=== PATIENT | male | born 1935 | race Caucasian/White ===

== ENCOUNTER 2017-04-03 13:45 | Inpatient (IN) ==
[2017-04-03] MEDS ORDERED: FUROSEMIDE 100 MG/10 ML VIAL IV STA (14:12)
[2017-04-03] MEDS ORDERED: ONDANSETRON 4 MG/2 ML VIAL IV STA (14:12)
[2017-04-03] MEDS ORDERED: MEROPENEM 1,000 MG in SODIUM CHLORIDE 0.9% 100 ML IV STA (14:12)
[2017-04-03] MEDS ORDERED: ALBUTEROL/IPRATROPIUM 3 ML NEB RESP TX STA (14:12)
--- NOTE | 2017-04-03 14:23 | Emergency Department Note ---
Arrival - Arrival Chief Complaint: Shortness of Breath Stated Complaint: shortness of breath ED Nursing Triage Note: Transfer from [facility] ER for further evaluation of shortness of breath onset approx one week ago. BNP 11,000. WBC 36,000.+non- productive cough. +generalized aching. Denies fever. Mode of Arrival: Stretcher Limitations: No Limitations Source: Patient, Family Time Seen by Provider: 04/03/17 14:12 - History of Present Illness HPI Narrative: This 81-year-old white male presents on transfer from [facility] for further evaluation of leukocytosis and shortness of breath. The patient has had an insidious onset of shortness of breath and cough over the last week and per the family has had no chills or fever just a general decline. 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 Murry last month for determination of when to treat. Per the family, at that time it was felt treatment was not necessary. As stated initially, however, today he revealed a very elevated white blood cell count. 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 At [place] it was noted in addition to the elevated white blood cell count he had a greatly elevated BNP as well as a borderline positive troponin in association with the symptoms. At no time did he have complaints of chest pain, nausea, or vomiting. He did demonstrate massive scrotal edema which is been there for years. 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 Onset (ago): week(s) Allergies/Adverse Reactions: Allergies Allergy/AdvReac Type Severity Reaction Status Date / Time No Known Allergies Allergy Verified 04/03/17 14:01 Home Medications: Home Medications Medication Instructions Recorded Confirmed Type Aspirin/Caffeine [Bc Powder Packet] 1 each PO BID 04/03/17 04/03/17 History Multivit-Min36/Iron/Folic Acid 1 each PO QAM 04/03/17 04/03/17 History [Geritol Complete Tablet] Review of System - Review of System 12 point system: reviewed and no additional remarkable complaints except as stated - Review of System Constitutional: Present: as per HPI Head/Ears/Nose/Throat: Present: see HPI Respiratory: Present: as per HPI Cardiovascular: Present: as per HPI Skin: Present: as per HPI Medical,Surgical,& Family Hx - Medical History Other: History of: Miscellaneous Medical Problems (leukemia) - Social History Smoking Status: Never smoker Frequency of Alcohol Use: Rarely Type of Drug Use: None Exam Physical Examination: GENERAL: Chronically ill-appearing white male in no acute distress. HEENT: Normocephalic. No trauma. Moist mucous membranes. EOMI. PERRLA. ENT ears clear, nose clear, throat reveals mild injection NECK: Supple. No adenopathy. CARDIAC: Regular. No murmurs. Heart rate 90 CHEST: Clear to auscultation. No respiratory distress. O2 sat 97% ABDOMEN: Soft. Nontender. Active bowel sounds.: Massive scrotal edema EXTREMITIES: No trauma. Normal ROM. No pedal edema. SKIN: No diaphoresis. No rash. Dry ulcer lateral aspect of the right ankle NEURO: Alert. Hearing deficit. Oriented 3. Motor, sensory, vibratory intact. No focal deficits. Vital Signs: Vital Signs Temperature 99.8 F H 04/03/17 13:45 Pulse Rate 73 04/03/17 14:30 Respiratory Rate 29 H 04/03/17 14:30 Blood Pressure 139/68 04/03/17 13:45 O2 Sat by Pulse Oximetry 100 04/03/17 14:30 Course - Reevaluation(s) Reevaluation #1: Advised patient and family that he would need hospitalization for pneumonia and failure. - Consultations Consultation #1: Discussed with Dr. Murry who deferred to hospitalist as the patient's current CLL state does not require any treatment and probably will never. Consultation #2: Discussed with hospitalist service who will admit for further evaluation treatment. Results - Labs CBC & BMP: 04/03/17 14:21 Labs: Per Kelly proBNP 11,000, troponin 0.38, PT PTT normal, sodium 140, potassium 4.0, creatinine 1.9, BUN 51, white count 38,000, hematocrit 27, platelets 210, 000 Bump in troponin here 2.41 with a BnP of 433 - Impressions EKG per Kelly normal sinus rhythm at 86 normal MI interval and QRS duration. Nonspecific ST changes with no acute injury pattern noted evidence of LVH. EKG: Sinus rhythm at 82 with normal MI interval and incomplete right bundle branch block with left axis deviation. Nonspecific ST changes with evidence of LVH. No acute injury pattern noted. - Diagnostic Findings Procedure: Chest x-ray: image reviewed by me, report reviewed by me (Right lower lobe infiltrate with bilateral pleural effusions) Disposition Clinical Impression: Right lower lobe pneumonia, Congestive heart failure, Stable CLL Case discussed with: patient, patient's family Disposition: Still a Patient Condition: Guarded Time of Disposition: 16:16
[2017-04-03 14:32] LABS: Basophils % 0.1 % (0.0-0.8); Hematocrit 24.3 VOL% (42.0-52.0); Hemoglobin 7.9 GM/DL (14.0-18.0); Immature Granulocytes % 0.8 %; Immature Granulocytes Absolute 0.28 #; Lymphocytes % 63.1 % (21.2-54.2); Mean Corpuscular HGB Conc 32.5 GM/DL (32-36); Mean Corpuscular Hemoglobin 28 PG (27-34); Mean Corpuscular Volume 87.1 FL (87-102); Mean Platelet Volume 9.6 FL (9.6-12.0); Monocytes # 4.1 10*3/uL (0.11-0.8); Monocytes % 12.3 % (1.7-12.7); Neutrophils # 7.8 10*3/uL (1.4-7.4); Neutrophils % 23.7 % (38.7-73.9); Platelet Count 195 T/CUMM (130-400); Red Blood Count 2.79 MC/CUMM (3.8-5.5); Red Cell Distribution Width 17.9 % (9.3-17.3); White Blood Count 33.2 T/CUMM (4-12)
--- NOTE | 2017-04-03 14:39 | EKG Report ---
Stationary ECG Study [facility] ER Test Date: 04/03/2017 2:39:20 PM Pat Name: NALINI CONTRERAS Department: Room: Gender: M [employer] Operator: : 1935 Requested by: Fuad Angel Order Number: [id number] Reading MD: ROHINI DENNEY Intervals [place] Rate: 82 P: 44 TN: 128 QRS: -21 QRSD: 98 T: 85 QT: 329 QTc: 368 Interpretive Statements SINUS RHYTHM BORDERLINE LEFT AXIS DEVIATION INCOMPLETE RIGHT BUNDLE BRANCH BLOCK LEFT VENTRICULAR HYPERTROPHY AND ST-T CHANGE Electronically Signed On 04-03-17 16:11:39 CDT by ROHINI DENNEY [email or web address]
[2017-04-03] MEDS ORDERED: FUROSEMIDE 40 MG/4 ML VIAL ONE (14:53)
[2017-04-03] MEDS ORDERED: ONDANSETRON 4 MG/2 ML VIAL ONE (14:53)
[2017-04-03] MEDS ORDERED: FUROSEMIDE 20 MG/2 ML VIAL ONE (14:53)
[2017-04-03] MEDS ORDERED: MEROPENEM 1,000 MG VIAL IV ONE (14:53)
[2017-04-03 15:04] LABS: Atypical Lymphocytes Few; Band Neutrophils 8 % (0-10); Lymphocytes 74 % (20-55); Segmented Neutrophils 16 % (50-85); Smudge Cells Moderate; Total Cells Counted 100
[2017-04-03 15:05] LABS: Hypochromasia Slight; Platelet Estimate Normal
[2017-04-03 15:06] LABS: Burr Cells Few; Poikilocytosis Slight; Tear Drop Cells Few
[2017-04-03 15:07] LABS: Troponin I Only 0.415 NG/ML (0.00-0.045)
--- NOTE | 2017-04-03 15:13 | XRay Report ---
Portable chest. Indication: Shortness of breath. Comparison: Outside study. The heart is normal in size. The pulmonary vasculature is normal. There is atelectasis and pleural effusion at the left lung base. There is worsening infiltrate and pleural effusion at the right lung base. Degenerative changes are present within the spinal column and shoulders. Impression: Small bilateral pleural effusions. Right basilar pneumonia with interval worsening. Left basilar atelectasis. PROCEDURE INTERPRETED AT [facility] DEPARTMENT OF RADIOLOGY Final Report Signed by: Dr. Pam Trivedi
[2017-04-03] MEDS ORDERED: NITROGLYCERIN 2% OINT 1 INCH/GM PACK TOP STA (15:50)
[2017-04-03] MEDS ORDERED: ASPIRIN 325 MG TABLET PO STA (15:50)
[2017-04-03] MEDS ORDERED: METOPROLOL TARTRATE 25 MG TABLET PO STA (15:51)
[2017-04-03] MEDS ORDERED: NITROGLYCERIN 2% OINT 1 INCH/GM PACK TOP ONE (16:07)
[2017-04-03] MEDS ORDERED: METOPROLOL TARTRATE 25 MG TABLET ONE (16:08)
[2017-04-03] MEDS ORDERED: ASPIRIN 325 MG TABLET ONE (16:08)
--- NOTE | 2017-04-03 17:09 | Hospitalist History & Physical ---
Assessment and Plan (1) Pneumonia Status: Acute Assessment and plan: Admit to med surg. Start on IV antibiotics. Monitor O2 sats. Breathing treatments as needed. Current Visit: Yes (2) Anemia Status: Acute Assessment and plan: H&H 7.9/24.3. Monitor serial h&h. Order PPI. Pt. denies jayson bleeding. Anemia panel. Transfuse 2 units of blood. Pt. has no other records on file unable to assess whether this is chronic. Pt. is unsure. Current Visit: Yes (3) CLL (chronic lymphocytic leukemia) Status: Acute Assessment and plan: Diagnosed in 2015. Followed by Dr[address] Murry. No treatments given at this time. Will consult oncology to see. Current Visit: Yes (4) Congestive heart failure Status: Acute Current Visit: Yes (5) Renal failure Status: Acute Assessment and plan: Labs reviewed from outside facility suggest renal failure. Will repeat stat BMP here. Monitor patient. Avoid nephrotoxic agents. Renally dose medications. Current Visit: Yes (6) Elevated troponin Status: Acute Assessment and plan: Serial troponins. Serial EKGs ordered. Consult cardiology for evaluation. Current Visit: Yes (7) Leukocytosis Status: Acute Assessment and plan: Pt. WBC 33. Pt. has history of CLL. CXR revealed pneumonia. Blood cultures pending. Will treat pneumonia and underlying issues. Recheck CBC in am. Continue to monitor patient Current Visit: Yes History of Present Illness Chief complaint: shortness of breath History of present illness: Mr. Paco Shaw is a 81 year old chronically ill-appearing white male patient presents to the ED via EMS as a transfer from [facility] for further evaluation of leukocytosis and shortness of breath. The patient's daughter-in- law is present at bedside and provides some of the patient's history. Patient states that he abruptly became short of breath and began to cough about a week ago. He states that the cough is productive and it is white. Patient also reports that since the onset of symptoms his condition has progressively declined. He states that he is weak but denies fever, chills, chest pain, vomiting, or diarrhea. Patient normally ambulates independently but has been requiring assistance. Patient also reports that he was diagnosed in August [address] Mrury. Patient states that he followed up with Dr. Murry last month and that no treatment was specified at that time. When patient presented to [facility] ER for evaluation he was noted to have a BNP of 11,000, and WBC 36,000 with an elevated troponin. He was transferred to our facility and labs were repeated. BNP at our facility was 433 and WBC was 33. Chest x-ray revealed right basilar pneumonia with interval worsening. On examination in the ED, patient was found to have a ulcer on the lateral right ankle as well last edema to bilateral lower extremities. Patient also had rather impressive scrotal edema which he stated has been there for 30 years. There were no other complaints noted in the ED. the patient is stable at this time. Patient's case has been discussed with Dr. Do and Dr. Lockwood. The patient will be admitted to the hospitalist service for further evaluation and treatment. Home Medications Medication Instructions Recorded Confirmed Type Aspirin/Caffeine [Bc Powder Packet] 1 each PO BID 04/03/17 04/03/17 History Multivit-Min36/Iron/Folic Acid 1 each PO QAM 04/03/17 04/03/17 History [Geritol Complete Tablet] Allergies Allergy/AdvReac Type Severity Reaction Status Date / Time No Known Allergies Allergy Verified 04/03/17 14:01 Medical,Surgical,& Family Hx - Medical History Other: History of: Miscellaneous Medical Problems (leukemia) - Social History Smoking Status: Never smoker Frequency of Alcohol Use: Rarely Type of Drug Use: None - Constitutional Constitutional: Present: fatigue, weakness. Absent: chills, fever(s) - EENT Eyes: Present: loss of vision Ears: Present: decreased hearing Nose, mouth and throat: Absent: epistaxis, headache(s) - Cardiovascular Cardiovascular: Present: edema. Absent: chest pain at rest - Respiratory Respiratory: Present: cough (productive (white sputum)) - Gastrointestinal Gastrointestinal: Present: nausea. Absent: abdominal pain, vomiting - Genitourinary Genitourinary: Present: scrotal swelling. Absent: difficulty urinating - Hematologic/Lymphatic Hematologic/Lymphatic: Present: easy bruising Exam - Constitutional Vitals: Period Temp Pulse Resp BP Sys/[place] Pulse Ox Last 24 Hr 99.8 F-99.8 F 72-90 16-29 126-143/59-98 93-100 General appearance: normal weight, no acute distress - Head Head exam: Present: normal inspection, normocephalic - Eye Eye exam: Present: EOMI. Absent: scleral icterus Pupils: Present: JOSETTE. Absent: fixed - Respiratory Respiratory exam: Present: other (coarse. decreased breath sides on right side) - Cardiovascular Cardiovascular exam: Present: regular rate and rhythm - GI/Abdominal GI/Abdominal exam: Present: normal bowel sounds, soft. Absent: tenderness - Extremities Exam Extremities exam: Present: normal capillary refill, edema - Neurological Exam Neurological exam: Present: alert, oriented X3 - Psychiatric Psychiatric exam: Present: normal affect, normal mood - Skin Skin exam: Present: normal color, warm, dry Results - Labs CBC & BMP: 04/03/17 14:21 Lab Results: I have reviewed the past 24 hour labs Labs: Labs from outside facility were reviewed.
[2017-04-03] MEDS ORDERED: ACETAMINOPHEN 325 MG TABLET PO PRN (18:20)
[2017-04-03] MEDS ORDERED: SODIUM CHLORIDE 0.9% 250 ML IV PRN (18:20)
[2017-04-03 18:52] LABS: Hematocrit 24.1 VOL% (42.0-52.0); Hemoglobin 7.8 GM/DL (14.0-18.0)
[2017-04-03] MEDS: ALBUTEROL/IPRATROPIUM 3 ML NEB RESP TX SCH ×2 (18:53→23:05)
[2017-04-03] MEDS ORDERED: ALBUTEROL/IPRATROPIUM 3 ML NEB RESP TX SCH (19:00)
[2017-04-03 19:20] LABS: % Iron Saturation 12.1 % (18-50); Calcium 7.7 MG/DL (8.5-10.1); Ferritin 229.8 ng/ml (26-388); Magnesium 2.3 MG/DL (1.8-2.4); Osmolality,Calculated 287.8 MOS/KG (273-304); Potassium 2.8 MMOL/L (3.5-5.1)
[2017-04-03 19:43] LABS: Folate 5.8 NG/ML (5.4-24.0)
[2017-04-03] MEDS ORDERED: LEVOFLOXACIN INJ 750 MG in PREMIX 1 EACH IV SCH (20:00)
[2017-04-03] MEDS ORDERED: POTASSIUM CHLORIDE 20 MEQ TABLET PO PRN (20:07)
[2017-04-04 00:30] LABS: Hematocrit 25.8 VOL% (42.0-52.0); Hemoglobin 8.2 GM/DL (14.0-18.0)
[2017-04-04 01:11] LABS: Troponin I Only 0.271 NG/ML (0.00-0.045)
[2017-04-04] MEDS: ALBUTEROL/IPRATROPIUM 3 ML NEB RESP TX SCH ×5 (03:11→20:34)
[2017-04-04 06:19] LABS: Basophils # 0.1 10*3/uL (0.0-0.2); Basophils % 0.1 % (0.0-0.8); Hematocrit 26.2 VOL% (42.0-52.0); Hemoglobin 8.6 GM/DL (14.0-18.0); Immature Granulocytes % 0.8 %; Lymphocytes # 17.9 10*3/uL (1.4-4.0); Lymphocytes % 50.3 % (21.2-54.2); Mean Corpuscular HGB Conc 32.8 GM/DL (32-36); Mean Corpuscular Hemoglobin 28 PG (27-34); Mean Corpuscular Volume 85.6 FL (87-102); Mean Platelet Volume 9.8 FL (9.6-12.0); Monocytes # 8.4 10*3/uL (0.11-0.8); Monocytes % 23.5 % (1.7-12.7); Neutrophils % 25.3 % (38.7-73.9); Platelet Count 196 T/CUMM (130-400); Red Blood Count 3.06 MC/CUMM (3.8-5.5); Red Cell Distribution Width 17.3 % (9.3-17.3); White Blood Count 35.6 T/CUMM (4-12)
[2017-04-04 06:55] LABS: Troponin I Only 0.296 NG/ML (0.00-0.045)
[2017-04-04 07:02] LABS: Calcium 7.5 MG/DL (8.5-10.1); Magnesium 2.3 MG/DL (1.8-2.4); Osmolality,Calculated 289.8 MOS/KG (273-304); Risk Ratio 5.13; Thyroid Stimulating Hormone 2.98 uIU/ml (0.358-3.74); VLDL CHOLESTEROL 16.4 MG/DL
[2017-04-04 07:16] LABS: Band Neutrophils 20 % (0-10); Hypochromasia 1+; Lymphocytes 64 % (20-55); Microcytosis Slight; Platelet Estimate Adequate; Segmented Neutrophils 14 % (50-85); Total Cells Counted 100
--- NOTE | 2017-04-04 09:32 | Cardiology Consult Note ---
Marie Méndez April, RN, am scribing for, and in the presence of, Kvng Calderon MD 09:24. Assessment and Plan - Time spent with patient Time spent with patient: Greater than 30 minutes (Due to assessment, planning, documentation, medication review) (1) Elevated troponin Status: Acute Assessment and plan: This may indicate some underlying ischemia but has not been accompanied by any chest pain. This could be secondary to his other underlying issues including his elevated creatinine and decreased renal function as well as his tachycardia. We will monitor and await his echocardiogram. Current Visit: Yes (2) Congestive heart failure Status: Acute Assessment and plan: He has elevated BNP. His chest x-ray may reveal both an element of congestive heart failure even pneumonia. Current Visit: Yes (3) Anemia Status: Acute Assessment and plan: He remains significantly anemic after 1 unit of blood. He is due to have a second unit. We are not sure what level he has blood counts have been as an outpatient. This certainly may contribute to his other issues. Current Visit: Yes (4) CLL (chronic lymphocytic leukemia) Status: Chronic Assessment and plan: This is followed by Dr. Murry. Current Visit: Yes (5) Pneumonia Status: Acute Assessment and plan: He has an elevated white count as well as abnormalities in his chest x-ray consistent with such. This certainly can contribute to his present cardiac issue. Current Visit: Yes (6) Renal failure Status: Acute Assessment and plan: BUN and creatinine are elevated. Duration this elevation is unknown. 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 Murry Mr. Paco Shaw is a 81 year old male who is never seen a granite cutter in the past. He denies any known heart problems, he also denies having had a heart catheterization or stress testing done in the past. He is followed by Dr. Murry for chronic lymphocytic leukemia. He is a poor historian. He denies any surgical history, and he also denies any family history. He reports is a lifetime non-smoker. Mr. Antonio reports he has been short of breath with a nonproductive cough for about a week. He cannot tell me if the shortness of breath is at rest, with exertion, or both. He reports having occasional chest pain for the past week as well. He cannot describe the pain to me or tell me any triggers or alleviators. He says it hurts in the middle top part of his chest beneath his throat. He rates it a 6 or a 7 on a scale of 1-10. He reports she has been having some palpitations at home, but denies any since admission. He also complains of weakness for the last week or so. He presented to the emergency department [facility] in [place] for the symptoms. He was found to have an elevated troponin of 0.38 and pro BNP of 11,036. He was transferred to our facility for further evaluation. Troponin on arrival here was 0.415 recheck last night was 0.271. Kidney function has been elevated with BUN of 50 and creatinine 2.0. He denies any known history of kidney problems. BNP was 433. H&H was 7.9 and 24.3. 2 units of red blood cells were ordered, one unit has been transfused. Potassium was 2.8. He has potassium ordered per protocol. I am not certain from the record if he has been given this or not. I will check with the nurse to make sure he receives this. EKG on arrival here with sinus rhythm and right bundle branch block, heart rate of 82. Chest x-ray suggested small bilateral pleural effusions with right basilar pneumonia and left basilar atelectasis. In the emergency department he was given Lasix IV as well as Lopressor 25 mg p.o. he was also given duo nebs treatments and has been started on IV antibiotics. During the night he had some runs of sinus tach but now with SVT with narrow complex QRS in the 140s. He denies having any palpitations or chest pain with these episodes. This morning he is seen resting in bed in no acute distress. He denies any chest pain at this time. Oxygen is in use via nasal cannula and he reports his breathing is pretty good. administrative aide currently shows sinus rhythm with heart rates in the 80s, however telemetry called and said that he has had a run of sinus tach in the 140s this morning. He denies any palpitations or dizziness at this time. Troponin this morning is 0.296. CK and CK-MB have been negative. His H&H is slightly improved after the 1 unit of blood 8.6 and 26.2. He does report having at home rare and intermittent short-lived episodes nonspecific chest pain without other symptomatology. Certainly his tachycardia/SVT can be exacerbated by his hypokalemia as well as his anemia. His blood pressures are little on the low side at this time and will need to monitor this. CC: Aureliano Lockwood, DO - Home Medications and Allergies Home Medications: Home Medications Medication Instructions Recorded Confirmed Type Aspirin/Caffeine [Bc Powder Packet] 1 each PO BID 04/03/17 04/03/17 History Multivit-Min36/Iron/Folic Acid 1 each PO QAM 04/03/17 04/03/17 History [Geritol Complete Tablet] Allergies/Adverse Reactions: Allergies Allergy/AdvReac Type Severity Reaction Status Date / Time No Known Allergies Allergy Verified 04/03/17 14:01 - Constitutional Constitutional: Present: as per HPI - EENT Eyes: Present: loss of vision, requires corrective lense Ears: Present: decreased hearing. Absent: ear pain, tinnitus Nose, mouth and throat: Present: headache(s), sore throat. Absent: epistaxis, neck pain - Cardiovascular Cardiovascular: Present: chest pain at rest, dyspnea, edema, lightheadedness, palpitations. Absent: diaphoresis, radiating jaw, neck or arm pain, orthopnea - Respiratory Respiratory: Present: cough, dyspnea. Absent: hemoptysis, wheezing - Gastrointestinal Gastrointestinal: Present: other (large inguinal hernia). Absent: abdominal pain, constipation, diarrhea, hematemesis, hematochezia, melena, nausea, vomiting - Genitourinary Genitourinary: Absent: dysuria, hematuria - Musculoskeletal Musculoskeletal: Present: back pain, limited range of motion, muscle weakness - Neurological Neurological: Present: abnormal gait, abnormal speech, dizziness, headache(s). Absent: frequent falls, syncope - Psychiatric Psychiatric: Absent: anxiety, depression - Endocrine Endocrine: Present: fatigue - Hematologic/Lymphatic Hematologic/Lymphatic: Present: easy bruising. Absent: easy bleeding Medical,Surgical,& Family Hx - Medical History Gastrointestinal: History of: GI Problems (large inguinal hernia) Other: History of: Miscellaneous Medical Problems (leukemia) - Surgical History Surgical History: noncontributory (Denies any surgical history) - Family History Family History: noncontributory (Denies any family history) - Social History Smoking Status: Never smoker Have you smoked in the last 12 months: No Frequency of Alcohol Use: Rarely Type of Drug Use: None Marital Status: Lives With:: Spouse Functional capacity: uses cane/walker Physical Examination Vital Signs Temp Pulse Resp BP Pulse Ox 99.8 F H 90 22 139/68 97 04/03/17 13:45 04/03/17 13:45 04/03/17 13:45 04/03/17 13:45 04/03/17 13:45 General: Present: Appears Well, No Apparent Distress Neck: Present: Supple Neck, Midline Trachea, No Bruit Cardiac: Present: Regular Rhythm, Tachycardia Lungs: Present: Scattered Rhonchi, Oxygen (Via nasal cannula), No Wheezes Neuro: Absent: Resting Tremor, Essential Tremor Abdomen: Present: Soft, Active Bowel Sounds, Non-Tender, Other (large inguinal hernia). Absent: Distended Skin: Present: Wound (Right side of the nose and right ankle). Absent: Rash Gait: Present: Poor Gait Extremities: Present: Normal Upper Extr. Pulses, Normal Lower Extr. Pulses, Edema (Trace to bilateral lower extremities, right worse than left). Absent: Normal Gait Result/EKG - Labs CBC & BMP: 04/04/17 05:58 04/04/17 05:58 Lab Results: I have reviewed the past 24 hour labs Labs: Laboratory Results - last 24 hr 04/03/17 04/03/17 04/03/17 14:21 14:21 14:21 WBC 33.2 H RBC 2.79 L Hgb 7.9 L Hct 24.3 L MCV 87.1 MCH 28 MCHC 32.5 RDW 17.9 H Plt Count 195 MPV 9.6 Neut % (Auto) 23.7 L Lymph % (Auto) 63.1 H Sandoval % (Auto) 12.3 Eos % (Auto) 0.0 Baso % (Auto) 0.1 Neut # (Auto) 7.8 H Lymph # (Auto) 21.0 H Sandoval # (Auto) 4.1 H Eos # (Auto) 0.0 Baso # (Auto) 0.0 Total Counted 100 Immature Gran % 0.8 Nucleated RBC % 0.0 Immature Gran # 0.28 Segmented Neutrophils 16 L Band Neutrophils 8 Lymphocytes 74 H Monocytes 2 Nucleated RBCs # 0.00 Atypical Lymphocytes Few Smudge Cells Moderate Platelet Estimate Normal Hypochromasia Slight Poikilocytosis Slight Microcytosis Tear Drop Cells Few [place] Cells Few Absolute Retic Percent Retic Retic Hgb Equivalent Sodium Potassium Chloride Carbon Dioxide Anion Gap BUN Creatinine GFR Calculation BUN/Creatinine Ratio Glucose Hemoglobin A1c Calculated Osmolality Calcium Magnesium Iron TIBC % Saturation Ferritin Total Creatine Kinase 42 CK-MB (CK-2) 1.8 Troponin I 0.415 H B-Natriuretic Peptide 433 H Triglycerides Cholesterol LDL Cholesterol VLDL Cholesterol HDL Cholesterol Heart Disease Risk Ratio Vitamin B12 Folate Free T4 TSH 3rd Generation Blood Type Antibody Screen Crossmatch 04/03/17 04/03/17 04/03/17 18:41 18:42 18:43 WBC RBC Hgb Hct MCV MCH MCHC RDW Plt Count MPV Neut % (Auto) Lymph % (Auto) Sandoval % (Auto) Eos % (Auto) Baso % (Auto) Neut # (Auto) Lymph # (Auto) Sandoval # (Auto) Eos # (Auto) Baso # (Auto) Total Counted Immature Gran % Nucleated RBC % Immature Gran # Segmented Neutrophils Band Neutrophils Lymphocytes Monocytes Nucleated RBCs # Atypical Lymphocytes Smudge Cells Platelet Estimate Hypochromasia Poikilocytosis Microcytosis Tear Drop Cells Mike Cells Absolute Retic 0.0 Percent Retic 0.6 Retic Hgb Equivalent 21.6 L Sodium 137 Potassium 2.8 L Chloride 96 L Carbon Dioxide 33 H Anion Gap 10.8 BUN 50 H Creatinine 2.00 H GFR Calculation 36 BUN/Creatinine Ratio 25.00 H Glucose 126 H Hemoglobin A1c Calculated Osmolality 287.8 Calcium 7.7 L Magnesium 2.3 Iron 16 L TIBC 132 L % Saturation 12.1 L Ferritin 229.8 Total Creatine Kinase CK-MB (CK-2) Troponin I B-Natriuretic Peptide Triglycerides Cholesterol LDL Cholesterol VLDL Cholesterol HDL Cholesterol Heart Disease Risk Ratio Vitamin B12 Folate Free T4 TSH 3rd Generation Blood Type A POSITIVE Antibody Screen Negative Crossmatch See Detail 04/03/17 04/03/17 04/03/17 18:43 18:43 19:03 WBC RBC Hgb 7.8 L Hct 24.1 L MCV MCH MCHC RDW Plt Count MPV Neut % (Auto) Lymph % (Auto) Sandoval % (Auto) Eos % (Auto) Baso % (Auto) Neut # (Auto) Lymph # (Auto) Sand[place] # (Auto) Eos # (Auto) Baso # (Auto) Total Counted Immature Gran % Nucleated RBC % Immature Gran # Segmented Neutrophils Band Neutrophils Lymphocytes Monocytes Nucleated RBCs # Atypical Lymphocytes Smudge Cells Platelet Estimate Hypochromasia Poikilocytosis Microcytosis Tear Drop Cells [place] Cells Absolute Retic Percent Retic Retic Hgb Equivalent Sodium Potassium Chloride Carbon Dioxide Anion Gap BUN Creatinine GFR Calculation BUN/Creatinine Ratio Glucose Hemoglobin A1c Calculated Osmolality Calcium Magnesium Iron TIBC % Saturation Ferritin Total Creatine Kinase CK-MB (CK-2) Troponin I B-Natriuretic Peptide Triglycerides Cholesterol LDL Cholesterol VLDL Cholesterol HDL Cholesterol Heart Disease Risk Ratio Vitamin B12 470 Folate 5.8 Free T4 TSH 3rd Generation Blood Type A POSITIVE Antibody Screen Crossmatch 04/03/17 04/03/17 04/04/17 23:46 23:46 05:58 WBC RBC Hgb 8.2 L Hct 25.8 L MCV MCH MCHC RDW Plt Count MPV Neut % (Auto) Lymph % (Auto) Sandoval % (Auto) Eos % (Auto) Baso % (Auto) Neut # (Auto) Lymph # (Auto) Sand[place] # (Auto) Eos # (Auto) Baso # (Auto) Total Counted Immature Gran % Nucleated RBC % Immature Gran # Segmented Neutrophils Band Neutrophils Lymphocytes Monocytes Nucleated RBCs # Atypical Lymphocytes Smudge Cells Platelet Estimate Hypochromasia Poikilocytosis Microcytosis Tear Drop Cells [place] Cells Absolute Retic Percent Retic Retic Hgb Equivalent Sodium Potassium Chloride Carbon Dioxide Anion Gap BUN Creatinine GFR Calculation BUN/Creatinine Ratio Glucose Hemoglobin A1c Calculated Osmolality Calcium Magnesium Iron TIBC % Saturation Ferritin Total Creatine Kinase 34 L 32 L CK-MB (CK-2) 1.4 < 1.0 Troponin I 0.271 H D 0.296 H B-Natriuretic Peptide Triglycerides Cholesterol LDL Cholesterol VLDL Cholesterol HDL Cholesterol Heart Disease Risk Ratio Vitamin B12 Folate Free T4 TSH 3rd Generation Blood Type Antibody Screen Crossmatch 04/04/17 04/04/17 04/04/17 05:58 05:58 05:58 WBC 35.6 H RBC 3.06 L Hgb 8.6 L Hct 26.2 L MCV 85.6 L MCH 28 MCHC 32.8 RDW 17.3 Plt Count 196 MPV 9.8 Neut % (Auto) 25.3 L Lymph % (Auto) 50.3 Sandoval % (Auto) 23.5 H Eos % (Auto) 0.0 Baso % (Auto) 0.1 Neut # (Auto) 9.0 H Lymph # (Auto) 17.9 H Sand[place] # (Auto) 8.4 H Eos # (Auto) 0.0 Baso # (Auto) 0.1 Total Counted 100 Immature Gran % 0.8 Nucleated RBC % 0.0 Immature Gran # 0.30 Segmented Neutrophils 14 L Band Neutrophils 20 H Lymphocytes 64 H Monocytes 2 Nucleated RBCs # 0.00 Atypical Lymphocytes Smudge Cells Platelet Estimate Adequate Hypochromasia 1+ Poikilocytosis Microcytosis Slight Tear Drop Cells Mike Cells Absolute Retic Percent Retic Retic Hgb Equivalent Sodium 137 Potassium 3.0 L Chloride 96 L Carbon Dioxide 33 H Anion Gap 11.0 BUN 56 H Creatinine 2.10 H GFR Calculation 34 BUN/Creatinine Ratio 26.00 H Glucose 124 H Hemoglobin A1c Calculated Osmolality 289.8 Calcium 7.5 L Magnesium 2.3 Iron TIBC % Saturation Ferritin Total Creatine Kinase CK-MB (CK-2) Troponin I B-Natriuretic Peptide Triglycerides 82 Cholesterol 77 LDL Cholesterol 44.0 VLDL Cholesterol 16.4 HDL Cholesterol 15 L Heart Disease Risk Ratio 5.13 Vitamin B12 Folate Free T4 1.22 TSH 3rd Generation 2.980 Blood Type Antibody Screen Crossmatch 04/04/17 05:58 WBC RBC Hgb Hct MCV MCH MCHC RDW Plt Count MPV Neut % (Auto) Lymph % (Auto) Sandoval % (Auto) Eos % (Auto) Baso % (Auto) Neut # (Auto) Lymph # (Auto) Sandoval # (Auto) Eos # (Auto) Baso # (Auto) Total Counted Immature Gran % Nucleated RBC % Immature Gran # Segmented Neutrophils Band Neutrophils Lymphocytes Monocytes Nucleated RBCs # Atypical Lymphocytes Smudge Cells Platelet Estimate Hypochromasia Poikilocytosis Microcytosis Tear Drop Cells Mike Cells Absolute Retic Percent Retic Retic Hgb Equivalent Sodium Potassium Chloride Carbon Dioxide Anion Gap BUN Creatinine GFR Calculation BUN/Creatinine Ratio Glucose Hemoglobin A1c 5.5 Calculated Osmolality Calcium Magnesium Iron TIBC % Saturation Ferritin Total Creatine Kinase CK-MB (CK-2) Troponin I B-Natriuretic Peptide Triglycerides Cholesterol LDL Cholesterol VLDL Cholesterol HDL Cholesterol Heart Disease Risk Ratio Vitamin B12 Folate Free T4 TSH 3rd Generation Blood Type Antibody Screen Crossmatch - Impressions Impressions: Telemetry with sinus tachycardia but now with some SVT that is regular with narrow QRS complexes. Heart rate in 140s. - Diagnostic Findings Procedure: Chest x-ray: report reviewed by me - EKG EKG shows: tachycardia, sinus rhythm IKvng John Timothy, MD, personally performed the services described in this documentation, ascribed by Nidhi Salazar RN in my presence, and it is both accurate and complete 932 .
--- NOTE | 2017-04-04 09:52 | Hospitalist Progress Note ---
Assessment and Plan (1) Congestive heart failure Status: Acute Assessment and plan: Patient appeared to have a congestive heart failure echocardiogram pending and patient is being followed by cardiology. I will give him Lasix 40 mg IV twice daily and monitor volume status closely along with electrolytes and renal function Current Visit: Yes (2) Pneumonia Status: Acute Assessment and plan: Patient also has some right-sided infiltrate on chest x-ray is on antibiotic which will be continued Current Visit: Yes (3) Anemia Status: Chronic Assessment and plan: Patient appears to have anemia likely chronic. Will order anemia profile Current Visit: Yes (4) Elevated troponin Status: Acute Assessment and plan: Being followed by cardiology and feels this is due to SVT and renal disease Current Visit: Yes (5) Renal failure Status: Acute Current Visit: Yes (6) CLL (chronic lymphocytic leukemia) Status: Chronic Assessment and plan: To be followed by Dr. Caldwell Current Visit: Yes (7) Hypokalemia Status: Acute Assessment and plan: Patient is on potassium replacement will continue to monitor Current Visit: Yes (8) Cellulitis and abscess of left lower extremity Status: Acute Assessment and plan: Appears to have cellulitis/abscess left ankle will consult general surgery Current Visit: Yes Hospitalist: Subjective Interval history: Mr. Antonio is a 81-year-old male admitted yesterday as transfer from [facility], [place]. He presented there with a history of shortness of breath about 1 week and was noted to have a elevated white count of 36,000. He has history of leukemia and followed by Dr. Murry. He has cough which was productive of white sputum but history in H&P but he denied any productive sputum to me. He denies any fever chills chest pain or any other symptoms. He was noted to have swelling of lower extremities and some redness left ankle on initial presentation. On evaluation he was noted to have SVT and elevated troponin of 0.415. He was also noted to have a bilateral pleural effusion and findings consistent with the back lower lobe pneumonia. He was started on Levaquin for pneumonia and cardiology was consulted for SVT and elevated troponin. Patient was seen today by Dr. Calderon. Echocardiogram is planned. Patient has no prior history of cardiac disease. Patient has no new symptoms overnight afebrile Exam - Constitutional Vitals: Period Temp Pulse Resp BP Sys/Corcoran Pulse Ox Last 24 Hr 97.3 F-99.8 F 70-144 16-29 77-143/47-98 92-100 General appearance: no acute distress - ENT ENT exam: Present: other (There is some lesion on the right side of face close to right nasal bridge with redness (patient report he had scratched there)) - Respiratory Respiratory exam: Absent: rales (Bilateral crepitations on chest auscultation with decreased air entry right side compared to left), rhonchi - Cardiovascular Cardiovascular exam: Present: regular rate and rhythm, tachycardia - GI/Abdominal GI/Abdominal exam: Present: normal bowel sounds, hernia (Large bilateral inguinal hernia noted without any tenderness. This is chronic per patient and he does not want any intervention), soft. Absent: ascites, distended - Extremities Exam Extremities exam: Present: edema (Bilateral edema of lower extremities with some swelling redness particularly at left ankle with overlying skin necrosis) - Neurological Exam Neurological exam: Present: alert Results - Labs CBC & BMP: 04/04/17 05:58 04/04/17 05:58
[2017-04-04] MEDS: MULTIVITAMIN (CENTRUM) TABLET PO SCH (10:10)
[2017-04-04] MEDS: PANTOPRAZOLE 40 MG TABLET PO SCH (10:11)
--- NOTE | 2017-04-04 10:48 | ECHO Report ---
Jorge Luis Antonio Exam Date: 04/04/2017 09:29 Referring Physician: Technologist: lara Jensen ARDMS, RVT Age: 81 Ht (in): 73 Wt (lb): 178 Gender: M Exam Location: [facility] Echo Indications: Anemia, Pneumonia, CLL, CHF, Renal failure, Elevated troponin, Leukocytosis BP: 88 / 53 HR: 144 Rhythm: TACHYCARDIA Technical Quality: fair to good IMPRESSIONS 1. Left ventricle is normal size and systolic function with ejection fraction 55-60%. There is at least mild concentric left ventricular hypertrophy. 2. Other cardiac chambers are normal size. 3. Aortic valve is mildly sclerotic but normal function. 4. Mitral valve is thickened with trace to mild regurgitation. 5. Mild to moderate tricuspid regurgitation. 6. Mild elevated right-sided pressures. MEASUREMENTS (Male / Female) Normal Values 2D ECHO LV Diastolic Diameter PLAX 2.5 cm 4.2 - 5.9 / 3.9 - 5.3 cm LV Systolic Diameter PLAX 1.9 cm LV Fractional Shortening PLAX 24.5 % IVS Diastolic Thickness 1.5 cm 0.6 - 1.0 / 0.6 - 0.9 cm LVPW Diastolic Thickness 1.4 cm 0.6 - 1.0 / 0.6 - 0.9 cm RV Internal Dim ED PLAX 2.4 cm Aortic Root Diameter 3.6 cm LA Systolic Diameter LX 3.9 cm 3.0 - 4.0 / 2.7 - 3.8 cm DOPPLER TR Peak Velocity 307.0 cm/s TR Peak Gradient 37.7 mmHg FINDINGS Left Ventricle Normal left ventricular cavity size. Mild left ventricular hypertrophy. Left ventricular ejection fraction is estimated at 55-60 %. Right Ventricle The right ventricle is normal in size and function. Right Atrium The right atrium is normal in size. Left Atrium The left atrium is normal in size. Mitral Valve Mildly thickened mitral valve. Trace to mild mitral valve regurgitation. Aortic Valve Aortic valve sclerosis without stenosis or regurgitation. Tricuspid Valve Morphologically normal tricuspid valve. [id number] tricuspid valve regurgitation. Tricuspid regurgitation velocities suggest a PAP of 43-48 mmHg. Pulmonic Valve Morphologically normal pulmonic valve. Trace pulmonary valve regurgitation. Pericardium Normal pericardium without effusion. Aorta Normal ascending aorta dimension. Kvng Calderon MD (Electronically Signed) Final Date: 04 April 2017 10:46
[2017-04-04] MEDS: POTASSIUM CHLORIDE RIDER 10 MEQ in PREMIX 1 EACH IV PRN ×4 (11:16→18:49)
[2017-04-04] MEDS ORDERED: CHLORHEXIDINE 4% SOLN 118 ML BOTTLE TOP ONE (16:23)
--- NOTE | 2017-04-04 16:24 | General Surgery Consult Note ---
Assessment and Plan - Time spent with patient Time spent with patient: Greater than 30 minutes (1) Cellulitis and abscess of left lower extremity Status: Acute Assessment and plan: Impression: Ecchymotic versus necrotic area of the right ankle laterally possibly due to trauma without clear abscess formation. Plan: Moisturize well with protective dressings see how this responds. We will try to avoid any extensive debridement since it would be difficult area to heal up or even the skin graft. Current Visit: Yes (2) Abscess of right external ear Status: Acute Assessment and plan: Impression: Abscess right ear Plan once he seems to be stable cardiac donald and electrolyte was considered an incision and drainage with a little bit of debridement of this area for cultures as well as treatment. Current Visit: Yes (3) CLL (chronic lymphocytic leukemia) Status: Chronic Assessment and plan: Impression: Chronic lymphocytic leukemia Plan: Managed by oncology Current Visit: Yes (4) Inguinal hernia Status: Acute Assessment and plan: Impression: Large inguinal hernia incarcerated with bowel without obstruction. Plan: Observation Current Visit: Yes Qualifiers: Laterality: unspecified laterality Recurrence: non-recurrent History of Present Illness Chief complaint: Asked to see about abscess of the ankle History of present illness: Mr. Paco Shaw is a 81 year old male white male who has chronic lymphocytic leukemia and was brought in because of elevated white count and possible pneumonia. He also has a large inguinal hernia that he is always refused to have any surgery to. Apparently his blood counts get low enough at times is got to be transfused. He has been followed by Dr. Murry for this problem. We were asked to see him for the possibility of abscess of the right ankle. On examination we did not see a fluctuant mass there may be a little erythema there but there is a large area of what looks like ischemic skin and an unusual pattern. He reports a injury there that he may have picked at. Do not know whether this is an ecchymotic change or true necrotic change present this time. Have noted that this is a very difficult area to deal with an excision of this area could easily result in a difficult wound to heal up. He has not a very cooperative individual and so it is going to be important that we be very conservative and treat this is simply as possible in order to deal with this effectively. He seems to have good pulses in this area. In addition to this process we found him to have another ecchymotic area around the area of the right ear base of the ear next to the jaw. There is swelling and fluctuance associated with this and some redness that goes down towards his neck. This is unclear even though there is a history of him picking at an area in this region also. Additionally he has an area on his right side of his face and right side of his nose that is count bruised and irritated that is reported to be an area that he has picked out I also. They do not recall another lesion being there prior to this at this time. We will try to start care at all these areas and attempt to try to improve the general status of him and see how they respond. Since he is undergoing some cardiac evaluation and correction of his potassium will wait on trying to do anything to the right ear area at this time until we see how things respond. Home Medications Medication Instructions Recorded Confirmed Type Aspirin/Caffeine [Bc Powder Packet] 1 each PO BID 04/03/17 04/03/17 History Multivit-Min36/Iron/Folic Acid 1 each PO QAM 04/03/17 04/03/17 History [Geritol Complete Tablet] Allergies Allergy/AdvReac Type Severity Reaction Status Date / Time No Known Allergies Allergy Verified 04/03/17 14:01 Medical,Surgical,& Family Hx - Medical History Gastrointestinal: History of: GI Problems (large inguinal hernia) Other: History of: Miscellaneous Medical Problems (leukemia) - Family History Family History: Denies;: Family Anesthesia Reaction, Family Cancer, Family Diabetes, Family Heart Disease, Family Hematology, Family Hypertension, Family Psychiatric Problems, Family Stroke, Additional Family History - Social History Smoking Status: Never smoker Frequency of Alcohol Use: Rarely Type of Drug Use: None 12 point system: reviewed and no additional remarkable complaints except as stated Exam - Constitutional Vitals: Period Temp Pulse Resp BP Sys/Corcoran Pulse Ox Last 24 Hr 96.9 F-98.6 F 70-144 16-20 77-142/47-74 88-99 General appearance: mild distress - Head Head exam: Present: normal inspection - ENT ENT exam: Present: other (Swelling of the right ear next to the face the base of the ear with a little ecchymotic area. There is a necrotic or ecchymotic area at the base of the nose on the right side of the face) - Neck Neck exam: Present: normal inspection - Respiratory Respiratory exam: Present: rales, rhonchi - Cardiovascular Cardiovascular exam: Present: RRR - GI/Abdominal GI/Abdominal exam: Present: hypoactive bowel sounds, hernia (Large incarcerated right inguinal hernia), soft. Absent: tenderness - Extremities Exam Extremities exam: Present: other (Right lower extremity with 3+ palpable dorsalis pedis posterior tibial pulse. There is a necrotic looking area without fluctuance and a mild amount of erythematous change above the use necrotic looking area without clear ulceration present at this time. This almost looks like bruising around an area of trauma although difficult to really sort out this time. Some mild edema of the ankle with mild erythema around this area.) - Back Exam Back exam: Present: normal inspection - Neurological Exam Neurological exam: Present: alert, oriented X3, CN II-XII intact - Skin Skin exam: Present: normal color, warm, dry Results - Labs CBC & BMP: 04/04/17 05:58 04/04/17 05:58 Lab Results: I have reviewed the past 24 hour labs
[2017-04-04] MEDS: FUROSEMIDE 40 MG/4 ML VIAL IV SCH (18:48)
[2017-04-04] MEDS ORDERED: METOPROLOL TARTRATE 25 MG TABLET PO SCH (21:00)
[2017-04-05] MEDS: ALBUTEROL/IPRATROPIUM 3 ML NEB RESP TX SCH ×7 (00:45→23:47)
[2017-04-05 03:33] LABS: Basophils % 0.1 % (0.0-0.8); Eosinophils % 0.1 % (0.00-10.9); Hematocrit 24.1 VOL% (42.0-52.0); Hemoglobin 7.8 GM/DL (14.0-18.0); Immature Granulocytes % 0.3 %; Immature Granulocytes Absolute 0.12 #; Lymphocytes # 18.4 10*3/uL (1.4-4.0); Lymphocytes % 51.1 % (21.2-54.2); Mean Corpuscular HGB Conc 32.4 GM/DL (32-36); Mean Corpuscular Hemoglobin 28 PG (27-34); Mean Platelet Volume 9.5 FL (9.6-12.0); Monocytes # 8.8 10*3/uL (0.11-0.8); Monocytes % 24.5 % (1.7-12.7); Neutrophils # 8.6 10*3/uL (1.4-7.4); Neutrophils % 23.9 % (38.7-73.9); Platelet Count 192 T/CUMM (130-400); Red Blood Count 2.77 MC/CUMM (3.8-5.5); Red Cell Distribution Width 17.3 % (9.3-17.3)
[2017-04-05 04:44] LABS: Calcium 7.7 MG/DL (8.5-10.1); Magnesium 2.3 MG/DL (1.8-2.4); Potassium 3.1 MMOL/L (3.5-5.1)
[2017-04-05 04:49] LABS: Sedimentation Rate-Westergren 124 MM/HR (0-20)
[2017-04-05] MEDS: POTASSIUM CHLORIDE RIDER 10 MEQ in PREMIX 1 EACH IV PRN ×4 (04:49→15:07)
[2017-04-05 05:53] LABS: Lymphocytes 50 % (20-55); Platelet Estimate Adequate; Segmented Neutrophils 50 % (50-85); Total Cells Counted 100
[2017-04-05 05:54] LABS: Hypochromasia 1+; Microcytosis 1+; Smudge Cells Moderate; Target Cells Slight
[2017-04-05 05:58] LABS: Folate 7.2 NG/ML (5.4-24.0); Vitamin B12 521 PG/ML (211-911)
--- NOTE | 2017-04-05 07:36 | Oncology Consult Note ---
History of Present Illness Chief complaint: Chronic lymphocytic leukemia History of present illness: Mr. Paco Shaw is a 81 year old male with a history of very early chronic lymphocytic leukemia. At this stage, leukemia is followed and not treated. He has never been on any formal treatment for CLL. The patient does have a history of anemia that needs to be evaluated but the most likely cause of his anemia is iron deficiency And/or chronic disease. His CBC is not much change from my last previous office visit. Blood tests already done on this patient include a CBC today that includes a white cell count 36,000 with an absolute neutrophil count of 8600. The patient has a hemoglobin of 7.8 with a borderline low MCV that was actually low yesterday at 85.6. In addition, he has a normal folic acid level of 7.2 today with a normal B12 level 521 today. On April 03, he had a low serum iron of 16 with a low total iron-binding capacity of 132 but with a ferritin level of 229.8. Thyroid studies have also been done and he has a normal free T4 and normal TSH. He has red cells ordered for transfusion and I agree with this. He has already been crossmatched and has no red cell antibodies according to the report. There has been much concern over the patient's extremely large and swollen scrotum. This is been going on for over 30 years and he is very sensitive about it. It has gone on for longer than he has had chronic lymphocytic leukemia. Past medical history: Allergies: He has no known allergies. Family history: No history of leukemia or malignancies. Social history: He does not use alcohol. He has never smoked. Review of systems: Positive review of systems includes significant fatigue. He also has had an inguinal hernia for an extended period of time and some of the scrotal swelling is due to get. He has had rashes on his scrotum. He has a history of psoriasis. He also has a history of psoriatic arthritis. In addition he has a long history of anemia. The first time ever saw him the patient had a hematocrit of 32.5 on March 172015. Physical examination: General: The patient appears febrile and somewhat chronically ill and approximately his stated age. Eyes: Normal lids and conjunctivae. ENT: His hearing appears normal. His trachea is midline. His voice is clear. He has ulcers in the oral mucosa. Nodes: I palpate no submandibular, cervical, supraclavicular or axillary adenopathy. Lungs: His chest moves symmetrically with respiration. He is tachypneic. I hear no rales. Cardiovascular: His heart rhythm is regular without murmur, gallop or rub. There is no jugular venous distention, clubbing or cyanosis. Abdomen: I cannot palpate his spleen. He has no ascites and he has no organomegaly or masses. I note that he has blood streaking on his underwear. Musculoskeletal: He is gait is unsteady. 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 Neurologic: He has a tremor. I detect no obvious focal neurologic deficits. Psychiatric: He is a little slow to respond but he appears to be appropriate in his answers. Impression: Anemia that is probably multifactorial including chronic disease, possibly the leukemia and probably iron deficiency. He does not appear to have autoimmune hemolytic anemia which can sometimes occur with CLL. He was crossmatched and had no antibodies. Chronic lymphocytic leukemia: His leukemia is in a very early stage that does not require treatment. It probably will never require treatment. I do not know that he is well enough to undergo GI evaluation for possible site of blood loss. He is already been documented to have a low serum iron and iron binding capacity with a normal folic acid level and B12 level. I am ordering a reticulocyte count and a haptoglobin as well as an LDH. I will follow him with you. Home Medications Medication Instructions Recorded Confirmed Type Aspirin/Caffeine [Bc Powder Packet] 1 each PO BID 04/03/17 04/03/17 History Multivit-Min36/Iron/Folic Acid 1 each PO QAM 04/03/17 04/03/17 History [Geritol Complete Tablet] Allergies Allergy/AdvReac Type Severity Reaction Status Date / Time No Known Allergies Allergy Verified 04/03/17 14:01 Medical,Surgical,& Family Hx - Medical History Gastrointestinal: History of: GI Problems (large inguinal hernia) Other: History of: Miscellaneous Medical Problems (leukemia) - Family History Family History: Denies;: Family Anesthesia Reaction, Family Cancer, Family Diabetes, Family Heart Disease, Family Hematology, Family Hypertension, Family Psychiatric Problems, Family Stroke, Additional Family History - Social History Smoking Status: Never smoker Frequency of Alcohol Use: Rarely Type of Drug Use: None Exam - Constitutional Vitals: Period Temp Pulse Resp BP Sys/Corcoran Pulse Ox Last 24 Hr 96.9 F-99.8 F 75-92 16-20 116-131/49-60 88-99 Results - Labs CBC & BMP: 04/05/17 02:50 04/05/17 02:50
--- NOTE | 2017-04-05 08:09 | Cardiology Progress Note ---
Assessment and Plan (1) Paroxysmal SVT (supraventricular tachycardia) Status: Acute Assessment and plan: He is having this off and on. Were going to titrate up his metoprolol. This may improve with increasing his potassium as well as increasing his H&H. His echocardiogram was unremarkable. Current Visit: Yes (2) Elevated troponin Status: Acute Assessment and plan: I do not think this is necessarily significant. He has been asymptomatic. Echocardiogram was unremarkable. Current Visit: Yes (3) Congestive heart failure Status: Acute Assessment and plan: He was elevated BNP. His chest x-ray may reveal both an element of congestive heart failure even pneumonia. He continues to receive IV diuretic. His urine output is been good. His echocardiogram is unremarkable with ejection fraction no gross cause from this to cause congestive heart failure. Current Visit: Yes (4) Anemia Status: Chronic Assessment and plan: He remains significantly anemic after 1 unit of blood. His blood counts are still remained diminished. He has not received a second unit of blood yet that I can tell. Current Visit: Yes (5) CLL (chronic lymphocytic leukemia) Status: Chronic Assessment and plan: This is followed by Dr. Murry. Current Visit: Yes (6) Pneumonia Status: Acute Assessment and plan: He has an elevated white count as well as abnormalities in his chest x-ray consistent with such. This certainly can contribute to his present cardiac issue. Current Visit: Yes (7) Renal failure Status: Acute Assessment and plan: BUN and creatinine are elevated and unchanged Current Visit: Yes Cardiology - PN: Subj Interval history: Patient this morning is doing fairly well without any real specific complaint. He is already requesting to go home. He denies shortness of breath or chest pain. Reviewing his chart he still having episodes of SVT/atrial tachycardia. He has no complaints of this. His potassium and H&H are still low. He is receiving IV potassium this morning. He apparently has not received his second unit of blood. We are going to start him on scheduled oral potassium. Certainly with his SVT we may have to add an antiarrhythmic. We will try not to. Going to increase his beta-johnathon. His echocardiogram revealed ejection fraction to be 55-60% with concentric left ventricular hypertrophy. His other cardiac chambers are unremarkable. He has sclerotic aortic valve but without any real significant valvular abnormalities. There is been some possibility of volume overload and he is receiving Lasix. Exam (Progress Note) - Constitutional Vitals: Period Temp Pulse Resp BP Sys/Corcoran Pulse Ox Last 24 Hr 97.2 F-99.8 F 75-92 16-22 116-131/49-60 88-99 Exam: General appearance: Elderly man that appears to be his age, normal weight, no acute distress HEENT exam: normal inspection, atraumatic. He has bandage over his right nose where there was previously noted skin lesion. Neck exam: normal inspection no JVD. No carotid bruit. Trachea is in midline Respiratory/lungs exam: clear to auscultation bilaterally good air movement. Cardiovascular exam: Regular with a little tachycardic. No gross murmur. No precordial lift. Chest wall exam: nontender GI/Abdominal exam: He has a large inguinal hernia present. Normal bowel sounds , soft, nontender. Extremeties/musculoskeletal: Trace edema lower extremities. Has wound of his right ankle. Neurological exam: alert, oriented X3, no focal deficits Psychiatric exam: normal affect, normal mood. Cognitive function is grossly normal. Skin exam: Skin lesions of his right nose and right ankle that we have noted previously. Result/EKG - Labs CBC & BMP: 04/05/17 02:50 04/05/17 02:50 Lab Results: I have reviewed the past 24 hour labs (Potassium is still less than we would like. His H&H is still down.) Labs: Laboratory Results - last 24 hr 04/03/17 04/05/17 04/05/17 18:42 02:50 02:50 WBC 36.0 H RBC 2.77 L Hgb 7.8 L Hct 24.1 L MCV 87.0 MCH 28 MCHC 32.4 RDW 17.3 Plt Count 192 MPV 9.5 L Neut % (Auto) 23.9 L Lymph % (Auto) 51.1 Ray % (Auto) 24.5 H Eos % (Auto) 0.1 Baso % (Auto) 0.1 Neut # (Auto) 8.6 H Lymph # (Auto) 18.4 H Ray # (Auto) 8.8 H Eos # (Auto) 0.0 Baso # (Auto) 0.0 Total Counted 100 Immature Gran % 0.3 Nucleated RBC % 0.0 Immature Gran # 0.12 Segmented Neutrophils 50 Lymphocytes 50 Nucleated RBCs # 0.00 Smudge Cells Moderate Platelet Estimate Adequate Hypochromasia 1+ Microcytosis 1+ Target Cells Slight ESR Westergren 124 H Absolute Retic 0.0 Percent Retic 0.6 Retic Hgb Equivalent 24.4 L Haptoglobin Sodium 136 Potassium 3.1 L Chloride 95 L Carbon Dioxide 32 Anion Gap 12.1 BUN 59 H Creatinine 2.00 H GFR Calculation 36 BUN/Creatinine Ratio 29.00 H Glucose 130 H Calculated Osmolality 290.0 Calcium 7.7 L Magnesium 2.3 Ferritin Lactate Dehydrogenase Vitamin B12 Folate BJ (IgG-AHG) BJ, Polyspecific BJ, C3d Specific BJ, Complement Crossmatch See Detail 04/05/17 04/05/17 04/05/17 02:50 02:50 02:50 WBC RBC Hgb Hct MCV MCH MCHC RDW Plt Count MPV Neut % (Auto) Lymph % (Auto) Ray % (Auto) Eos % (Auto) Baso % (Auto) Neut # (Auto) Lymph # (Auto) Ray # (Auto) Eos # (Auto) Baso # (Auto) Total Counted Immature Gran % Nucleated RBC % Immature Gran # Segmented Neutrophils Lymphocytes Nucleated RBCs # Smudge Cells Platelet Estimate Hypochromasia Microcytosis Target Cells ESR Westergren Absolute Retic Percent Retic Retic Hgb Equivalent Haptoglobin Sodium Potassium 2.9 L Chloride Carbon Dioxide Anion Gap BUN Creatinine GFR Calculation BUN/Creatinine Ratio Glucose Calculated Osmolality Calcium Magnesium Ferritin 305.5 Lactate Dehydrogenase Vitamin B12 521 Folate 7.2 BJ (IgG-AHG) BJ, Polyspecific BJ, C3d Specific BJ, Complement Crossmatch 04/05/17 04/05/17 04/05/17 02:50 02:50 02:50 WBC RBC Hgb Hct MCV MCH MCHC RDW Plt Count MPV Neut % (Auto) Lymph % (Auto) Ray % (Auto) Eos % (Auto) Baso % (Auto) Neut # (Auto) Lymph # (Auto) Ray # (Auto) Eos # (Auto) Baso # (Auto) Total Counted Immature Gran % Nucleated RBC % Immature Gran # Segmented Neutrophils Lymphocytes Nucleated RBCs # Smudge Cells Platelet Estimate Hypochromasia Microcytosis Target Cells ESR Westergren Absolute Retic 0.0 Percent Retic 0.7 Retic Hgb Equivalent 26.1 L Haptoglobin 416.0 H Sodium Potassium Chloride Carbon Dioxide Anion Gap BUN Creatinine GFR Calculation BUN/Creatinine Ratio Glucose Calculated Osmolality Calcium Magnesium Ferritin Lactate Dehydrogenase 127 Vitamin B12 Folate BJ (IgG-AHG) Weak positive BJ, Polyspecific Weak positive BJ, C3d Specific Negative BJ, Complement Negative Crossmatch - Impressions Impressions: Telemetry with sinus rhythm with episodes still of SVT. 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
[2017-04-05] MEDS ORDERED: POTASSIUM CHLORIDE 20 MEQ TABLET PO ONE (08:48)
[2017-04-05] MEDS ORDERED: BACITRACIN OINT 0.9 GM PACK TOP SCH (09:00)
--- NOTE | 2017-04-05 09:08 | General Surgery Progress Note ---
Assessment and Plan - Time spent with patient Time spent with patient: Greater than 30 minutes (Purpuric vesicular lesions of the right preauricular, right lateral malleolus, right posterior leg, and left scrotal areas. These are progressive, but there does not appear to be any gross purulence. We are planning to watch these areas at this point for signs of infection, but favor this being a systemic process and not a true infection. They have been cultured. He does have a suspicious skin lesion at the right nasal bridge; this may be due to an ulcerating basal cell versus possibly or ominous type skin cancer. Will also watch this area closely, as it may well require surgical intervention at some point.) Subjective Patient reports: Present: no new complaints, tolerating a regular diet Exam - Constitutional Vitals: Period Temp Pulse Resp BP Sys/Corcoran Pulse Ox Last 24 Hr 97.2 F-99.8 F 75-92 16-22 116-131/49-60 88-99 General appearance: no acute distress - Head Head exam: Present: other (Right preauricular area erythema and vesicular lesion are stable. There is no new induration.) - ENT ENT exam: Present: other (Right lateral nose lesion is macerating somewhat, and some of this looks to be due to exudate. There is an ulcerating lesion underneath the exudate, but is difficult to evaluate this certainty due to his discomfort. The erythema has cleared.) - Neck Neck exam: Absent: tenderness - Cardiovascular Cardiovascular exam: Present: RRR - Extremities Exam Extremities exam: Present: other (New purpuric vesicular lesions at the posterior aspect of the right lower leg. There are 2 of these, each about 1-2 cm in size. They are not tender, and there is no associated erythema. The generalized erythema at the lateral aspect of the right lower leg appears slightly less. The ecchymosis has now developed a vesicular component, which we were able to easily lift and obtain fluid for culture and sensitivity. The skin underneath is difficult to assess, but some of this is likely only superficial skin loss. The joint is tank tender, but there is no gross joint effusion. He also has a new vesicular area of the dependent portion of the left scrotum; this is about 3 cm in size, and has actually ruptured. The tissue beneath it looks to be superficial skin excoriation without any deep tissue loss. It is not tender to touch.) Results - Labs CBC & BMP: 04/05/17 02:50 04/05/17 02:50 Lab Results: I have reviewed the past 24 hour labs (Labs noted)
[2017-04-05] MEDS: FUROSEMIDE 40 MG/4 ML VIAL IV SCH (09:22)
[2017-04-05] MEDS: SKIN HEALING OINT (AQUAPHOR) 50 GM TUBE TOP SCH (09:22)
[2017-04-05] MEDS: BACITRACIN OINT 0.9 GM PACK TOP SCH (09:22)
[2017-04-05] MEDS: PANTOPRAZOLE 40 MG TABLET PO SCH (09:23)
[2017-04-05] MEDS: METOPROLOL TARTRATE 50 MG TABLET PO SCH ×2 (09:23→20:37)
[2017-04-05] MEDS: FLUCONAZOLE 100 MG TABLET PO SCH (09:23)
[2017-04-05] MEDS: POTASSIUM CHLORIDE 20 MEQ TABLET PO SCH ×2 (09:23→20:37)
[2017-04-05] MEDS: MULTIVITAMIN (CENTRUM) TABLET PO SCH (09:24)
--- NOTE | 2017-04-05 09:38 | Hospitalist Progress Note ---
Assessment and Plan (1) Congestive heart failure Status: Acute Assessment and plan: Patient appeared to have a congestive heart failure but preserved left ventricular systolic function. Patient noted on diuretics and tolerating. Also today to p.o. Lasix cardiology following. I will repeat x-ray in the morning for follow-up Current Visit: Yes (2) Pneumonia Status: Acute Assessment and plan: Patient also has some right-sided infiltrate on chest x-ray is on antibiotic which will be continued Current Visit: Yes (3) Anemia Status: Chronic Assessment and plan: Patient appears to have chronic anemia and also assisted by Dr. Murry in evaluation look like he has multifactorial issue including chronic disease and leukemia Current Visit: Yes (4) Elevated troponin Status: Acute Assessment and plan: Being followed by cardiology and feels this is due to SVT and renal disease Current Visit: Yes (5) Renal failure Status: Acute Assessment and plan: Patient has abnormal renal function unfortunately do not have old labs to look at will order renal ultrasound, Urinalysis, phosphorus PTH and vitamin D level. Consult renal for follow-up Current Visit: Yes (6) CLL (chronic lymphocytic leukemia) Status: Chronic Assessment and plan: To be followed by Dr. Caldwell Current Visit: Yes (7) Hypokalemia Status: Acute Assessment and plan: Patient is on potassium replacement will continue to monitor. Hopefully switching to either p.o. Lasix with cut down the need I will get a repeat potassium tomorrow Current Visit: Yes (8) Cellulitis and abscess of left lower extremity Status: Acute Assessment and plan: Appears to have cellulitis/abscess left ankle general surgery following with a conservative management at present Current Visit: Yes Hospitalist: Subjective Interval history: Patient reported that dyspnea has improved he is afebrile. He is voiding well. Seen by general surgery for suspected cellulitis/abscess right ankle. Plan to observe only without any intervention. He was also seen by Dr. Murry and working up his anemia. Echocardiogram was done did reveal LV ejection fraction 55-60% Exam - Constitutional Vitals: Period Temp Pulse Resp BP Sys/Corcoran Pulse Ox Last 24 Hr 97.2 F-99.8 F 75-92 16-22 116-131/49-60 88-99 General appearance: no acute distress - ENT ENT exam: Present: other (There is some lesion on the right side of face close to right nasal bridge with redness (patient report he had scratched there)) - Respiratory Respiratory exam: Absent: rales (Bilateral crepitations on chest auscultation with decreased air entry right side compared to left), rhonchi - Cardiovascular Cardiovascular exam: Present: regular rate and rhythm, tachycardia - GI/Abdominal GI/Abdominal exam: Present: normal bowel sounds, hernia (Large bilateral inguinal hernia noted without any tenderness. This is chronic per patient and he does not want any intervention), soft. Absent: ascites, distended - Extremities Exam Extremities exam: Present: edema (Bilateral edema of lower extremities with some swelling redness particularly at left ankle with overlying skin necrosis) - Neurological Exam Neurological exam: Present: alert Results - Labs CBC & BMP: 04/05/17 02:50 04/05/17 02:50 Lab Results: I have reviewed the past 24 hour labs
--- NOTE | 2017-04-05 11:42 | Ultrasound Report ---
Exam: US renal Bilateral Date: 04/05/2017 9:45 AM Indication: Abnormal renal function Comparison: None Findings: Right kidney. 10.8 x 5.0 x 5.3 cm. No hydronephrosis present. Normal color flow is present. No focal mass present. Questionable tiny amount of perinephric fluid. Left kidney. 11.9 x 6.1 x 5.2 cm. There is a tiny cyst present measuring 12 x 10 x 13 mm on the lower pole of the left kidney. No hydronephrosis or perinephric fluid collection. Impression: 1. Small cyst in lower pole the left kidney. 2. Mild increased echogenicity without obstructive uropathy that suggest minimal medical renal disease 3. Trace of perinephric fluid right kidney region Ultrasound images were stored and captured PROCEDURE INTERPRETED AT [facility] DEPARTMENT OF RADIOLOGY Final Report Signed by: Dr. Hudson Davies
--- NOTE | 2017-04-05 12:10 | Nephrology Consult Note ---
History of Present Illness Chief complaint: Renal failure History of present illness: Mr. Paco Shaw is a 81 year old male admitted with right lower lobe pneumonia. He was diagnosed with CLL approximately 7 months ago. He was noted to have renal insufficiency at the time of this admission. He is unaware of prior renal failure. He denies dysuria or obstructive symptoms. No history of nephrolithiasis. He is being treated with Levaquin for right lower lobe pneumonia. He has been transfused since admission. Home Medications Medication Instructions Recorded Confirmed Type Aspirin/Caffeine [Bc Powder Packet] 1 each PO BID 04/03/17 04/03/17 History Multivit-Min36/Iron/Folic Acid 1 each PO QAM 04/03/17 04/03/17 History [Geritol Complete Tablet] Allergies Allergy/AdvReac Type Severity Reaction Status Date / Time No Known Allergies Allergy Verified 04/03/17 14:01 Medical,Surgical,& Family Hx - Medical History Gastrointestinal: History of: GI Problems (large inguinal hernia) Hematology: History of: Blood Disorders Other: History of: Miscellaneous Medical Problems (leukemia) - Family History Family History: Denies;: Family Anesthesia Reaction, Family Cancer, Family Diabetes, Family Heart Disease, Family Hematology, Family Hypertension, Family Psychiatric Problems, Family Stroke, Additional Family History - Social History Smoking Status: Never smoker Frequency of Alcohol Use: Rarely Type of Drug Use: None Review of Systems 12 point system: reviewed and no additional remarkable complaints except as stated Exam - Vital Signs Vital signs: Period Temp Pulse Resp BP Sys/Corcoran Pulse Ox Last 24 Hr 97.2 F-99.8 F 75-92 16-22 116-131/49-59 88-99 Exam: Gen.: Alert and oriented x3. ENT: Pupils equal round reactive to light. EOMs intact. Neck: Supple. No JVD or bruit. Cardiovascular: Regular rate and rhythm. No murmur rub or gallop Lungs: Left lung clear. Decreased breath sounds right base Abdomen: Soft. Nontender. Positive bowel sounds. No organomegaly Extremities: Trace edema Results - Labs CBC & BMP: 04/05/17 02:50 04/05/17 02:50 Assessment and Plan (1) Chronic kidney disease, stage III (moderate) Status: Acute Assessment and plan: 81-year-old man admitted with: * CLL. Followed by Dr. Murry * Pneumonia, right lower lobe. Continue Levaquin. He has small bilateral pleural effusions. Suspect albumin is low rather than volume overload. Ejection fraction normal * Renal failure. Ultrasound shows increased echogenicity. Urinalysis is pending. I suspect this is chronic * Cellulitis, right leg * Paroxysmal SVT Current Visit: Yes (2) Cellulitis and abscess of left lower extremity Status: Acute Current Visit: Yes (3) Hypokalemia Status: Acute Current Visit: Yes (4) Leukocytosis Status: Acute Current Visit: Yes (5) Paroxysmal SVT (supraventricular tachycardia) Status: Acute Current Visit: Yes (6) Pneumonia Status: Acute Current Visit: Yes (7) CLL (chronic lymphocytic leukemia) Status: Chronic Current Visit: Yes
[2017-04-05] MEDS ORDERED: FUROSEMIDE 40 MG TABLET PO SCH (16:00)
[2017-04-05 16:06] LABS: Apearance,Urine CLEAR (Clear); Bilirubin,Urine Negative (Negative); Blood, Urine Small mg/dL (Negative); Glucose,Urine (UA) Negative (Negative); Ketones,Urine Negative (Negative); Mucus,Urine Occasional /LPF (Occasional); Nitrite,Urine Negative (Negative); Protein,Urine Negative; RBC,Urine 1 /HPF (0-4); Squamous Epithelial Cell,Urine Occasional /HPF (0-10); Urine Color Yellow (Yellow); Urine Specific Gravity 1.009 (1.001-1.035); Urine Urobilinogen < 2.0 EU/DL (0.2-1.0); WBC,Urine 1 /HPF (0-6)
[2017-04-05] MEDS: LEVOFLOXACIN INJ 750 MG in PREMIX 1 EACH IV SCH (23:55)
[2017-04-06] MEDS: ALBUTEROL/IPRATROPIUM 3 ML NEB RESP TX SCH ×6 (03:06→23:42)
[2017-04-06 06:15] LABS: Basophils % 0.1 % (0.0-0.8); Eosinophils % 0.1 % (0.00-10.9); Hematocrit 23.9 VOL% (42.0-52.0); Hemoglobin 7.6 GM/DL (14.0-18.0); Immature Granulocytes % 0.9 %; Immature Granulocytes Absolute 0.34 #; Lymphocytes % 47.9 % (21.2-54.2); Mean Corpuscular HGB Conc 31.8 GM/DL (32-36); Mean Corpuscular Hemoglobin 28 PG (27-34); Mean Corpuscular Volume 88.8 FL (87-102); Mean Platelet Volume 9.7 FL (9.6-12.0); Monocytes # 9.5 10*3/uL (0.11-0.8); Monocytes % 25.4 % (1.7-12.7); Neutrophils # 9.6 10*3/uL (1.4-7.4); Neutrophils % 25.6 % (38.7-73.9); Platelet Count 206 T/CUMM (130-400); Red Blood Count 2.69 MC/CUMM (3.8-5.5); Red Cell Distribution Width 17.6 % (9.3-17.3); White Blood Count 37.5 T/CUMM (4-12)
[2017-04-06 06:42] LABS: Band Neutrophils 16 % (0-10); Eosinophils 1 % (0-10); Hypochromasia 2+; Lymphocytes 50 % (20-55); Microcytosis 1+; Platelet Estimate Adequate; Segmented Neutrophils 33 % (50-85); Total Cells Counted 100
[2017-04-06 06:46] LABS: 25 Hydroxy Vitamin D Total 10.3 NG/ML
[2017-04-06 06:48] LABS: Calcium 7.9 MG/DL (8.5-10.1); Osmolality,Calculated 288.7 MOS/KG (273-304); Phosphorous 2.5 MG/DL (2.5-4.9); Potassium 3.8 MMOL/L (3.5-5.1)
[2017-04-06 07:03] LABS: Parathyroid Hormone Intact 95.4 PG/ML (14-72)
[2017-04-06] MEDS ORDERED: SODIUM CHLORIDE 0.9% 250 ML IV PRN (07:03)
--- NOTE | 2017-04-06 07:03 | Oncology Progress Note ---
Oncology Subjective PN Interval history: Chronic lymphocytic leukemia The white cell count today is 37,500. The hemoglobin is 7.6 and the platelet count is 206,000. Once again, this patient has chronic lymphocytic leukemia that does not require treatment at this point. anemia of chronic disease It appears that he has only received 1 unit of blood so far, according to the electronic medical record. The original order on the day of admission indicated the patient was to get 2 units of packed red cells. I have ordered the transfusions to continue to a total of 3 units and he is in the process of getting the third unit now. We will recheck lab work tomorrow. Exam - Constitutional Vitals: Period Temp Pulse Resp BP Sys/Corcoran Pulse Ox Last 24 Hr 97.9 F-99.2 F 64-139 16-22 103-130/54-68 90-99 Results - Labs CBC & BMP: 04/06/17 05:46 04/06/17 05:46
[2017-04-06 07:07] LABS: Calcium 7.9 MG/DL (8.5-10.1); Magnesium 2.5 MG/DL (1.8-2.4); Osmolality,Calculated 286.8 MOS/KG (273-304); Potassium 3.8 MMOL/L (3.5-5.1)
--- NOTE | 2017-04-06 07:47 | XRay Report ---
Exam: XR chest 2V Date: 04/06/2017 4:00 AM Indication: Pneumonia question volume overload Comparison: 04/03/2017 Technical:AP Findings: Mild cardiomegaly present. Alveolar infiltrate present in the right base with some fluid and thickening of the minor fissure. Left basilar atelectatic changes present. Gaseous distention is present within the bowel in the upper abdomen. External cardiac leads and oxygen tubing are present. No pneumothorax. Lateral marginal osteophytes are present. Impression: 1. Right basilar and bilateral perihilar pneumonic infiltrate suspected 2. Abdominal ileus pattern. 3. Degenerative spondylosis change thoracic spine PROCEDURE INTERPRETED AT [facility] DEPARTMENT OF RADIOLOGY Final Report Signed by: Dr. Hudson Davies
--- NOTE | 2017-04-06 09:19 | Hospitalist Progress Note ---
Assessment and Plan (1) Congestive heart failure Status: Acute Assessment and plan: Patient appeared to have preserved left ventricular function. He may have some component of CHF with preserved LV function but he appeared to be overall euvolemic. He has poor nutritional status and I agree the edema may likely be contributed by that I will monitor volume status. He is now on once a day p.o. Lasix Current Visit: Yes (2) Pneumonia Status: Acute Assessment and plan: We will continue antibiotic for pneumonia. Patient has been afebrile white count is still elevated but has history of CLL Current Visit: Yes (3) Anemia Status: Chronic Assessment and plan: Patient appears to have chronic anemia and may be multifactorial. Noted hemoglobin 7.6 despite he had transfusion. I will inquire with the nursing staff about transfusion issue Current Visit: Yes (4) Elevated troponin Status: Acute Assessment and plan: Being followed by cardiology and feels this is due to SVT and renal disease Current Visit: Yes (5) Renal failure Status: Acute Assessment and plan: Patient has abnormal renal function. No lab work from past available to compare but seems like she he has chronic kidney disease. His PTH level is elevated but he also has vitamin D deficiency I will start on vitamin D Current Visit: Yes (6) CLL (chronic lymphocytic leukemia) Status: Chronic Assessment and plan: Followed by Dr. Murry Current Visit: Yes (7) Hypokalemia Status: Acute Assessment and plan: Potassium level is within normal limits. Keep monitor Current Visit: Yes (8) Cellulitis and abscess of left lower extremity Status: Acute Assessment and plan: Appears to have cellulitis/abscess left ankle general surgery following with a conservative management at present Current Visit: Yes Hospitalist: Subjective Interval history: Patient report coughing which was nonproductive this morning no subjective or objective fever. He received breathing treatment this morning and that seemed to help according to him. No shortness of breath reported at present. Yesterday patient received 1 unit of packed RBC which was ordered by Dr. Murry. I am not sure why he was not given the second unit. I do not recall holding on the second unit of transfusion unless it was done by on-call hospitalist later in the evening or last night. Exam - Constitutional Vitals: Period Temp Pulse Resp BP Sys/Corcoran Pulse Ox Last 24 Hr 97.3 F-99.2 F 64-139 16-20 103-130/54-68 90-99 General appearance: no acute distress - Respiratory Respiratory exam: Present: rales (Decreased air entry and rail present more on the left side at the base). Absent: rhonchi - Cardiovascular Cardiovascular exam: Present: regular rate and rhythm. Absent: tachycardia - GI/Abdominal GI/Abdominal exam: Present: normal bowel sounds, hernia (Large inguinal hernia seem to be bilateral present without any tenderness and is chronic), soft. Absent: tenderness - Extremities Exam Extremities exam: Present: edema (Mild edema of lower extremities) - Neurological Exam Neurological exam: Present: alert Results - Labs CBC & BMP: 04/06/17 05:46 04/06/17 05:46 Lab Results: I have reviewed the past 24 hour labs
[2017-04-06] MEDS: METOPROLOL TARTRATE 50 MG TABLET PO SCH ×2 (09:37→21:08)
[2017-04-06] MEDS: PANTOPRAZOLE 40 MG TABLET PO SCH (09:37)
[2017-04-06] MEDS: FUROSEMIDE 40 MG TABLET PO SCH (09:37)
[2017-04-06] MEDS: MULTIVITAMIN (CENTRUM) TABLET PO SCH (09:37)
[2017-04-06] MEDS: POTASSIUM CHLORIDE 20 MEQ TABLET PO SCH ×2 (09:37→21:08)
[2017-04-06] MEDS: FLUCONAZOLE 100 MG TABLET PO SCH (09:37)
[2017-04-06] MEDS: BACITRACIN OINT 0.9 GM PACK TOP SCH (09:37)
[2017-04-06] MEDS: SKIN HEALING OINT (AQUAPHOR) 50 GM TUBE TOP SCH (09:37)
[2017-04-06] MEDS: ERGOCALCIFEROL 50,000 UNIT CAPSULE PO SCH (10:28)
[2017-04-06 12:07] LABS: INR 1.2; PT Patient Result 12.7 SECS
[2017-04-06] MEDS ORDERED: ceFAZolin 2,000 MG in PREMIX 1 EACH IV ONE (12:43)
--- NOTE | 2017-04-06 12:49 | General Surgery Progress Note ---
Assessment and Plan (1) Cellulitis and abscess of left lower extremity Status: Acute Assessment and plan: Impression: Ecchymotic versus necrotic area of the right ankle laterally possibly due to trauma without clear abscess formation. Plan: Moisturize well with protective dressings see how this responds. We will try to avoid any extensive debridement since it would be difficult area to heal up or even the skin graft. 04/06/2017. The area on the ankle on the right has failed to improve actually looks worse today. At this point I do not know of anything else to do but to try out clean this up as best we can get some biopsies and try to find out what process is going on here to create this and see if we can somehow risk to progress. Similarly on the 2 new areas on the medial aspect of the right leg changes to show some problems also. Do not know what we are to go with this at this point time but we need to get some information find exactly what we are dealing with. Will take to surgery for some debridement. Current Visit: Yes (2) Abscess of right external ear Status: Acute Assessment and plan: Impression: Abscess right ear Plan once he seems to be stable cardiac donald and electrolyte was considered an incision and drainage with a little bit of debridement of this area for cultures as well as treatment. 04/06/2017. Area about the right ear and cheek area is no better still some erythematous changes present. We go ahead and get this debrided opened and drained cultured well so that we can understand what we are dealing with this side also. Current Visit: Yes (3) CLL (chronic lymphocytic leukemia) Status: Chronic Assessment and plan: Impression: Chronic lymphocytic leukemia Plan: Managed by oncology Current Visit: Yes (4) Inguinal hernia Status: Acute Assessment and plan: Impression: Large inguinal hernia incarcerated with bowel without obstruction. Plan: Observation Current Visit: Yes Qualifiers: Laterality: unspecified laterality Recurrence: non-recurrent Subjective Patient reports: Present: no new complaints, tolerating a regular diet, bowel movement, afebrile Exam - Constitutional Vitals: Period Temp Pulse Resp BP Sys/Corcoran Pulse Ox Last 24 Hr 97.3 F-99.2 F 64-139 16-24 103-130/54-68 90-99 General appearance: mild distress - Head Head exam: Present: normal inspection - ENT ENT exam: Present: other (Area near the ear on the face continues to be swollen with some discoloration with redness down onto the neck. Lesion about the nose base is showing little change at this time.) - Neck Neck exam: Present: normal inspection - Respiratory Respiratory exam: Present: rales - Cardiovascular Cardiovascular exam: Present: RRR - GI/Abdominal GI/Abdominal exam: Present: hypoactive bowel sounds, soft - Extremities Exam Extremities exam: Present: other (The wound on the lateral aspect of the right ankle with marked ecchymosis appears worse today with progression of the ecchymotic area blistering with fluid present. Areas on the medial aspect of the leg shows a little bit of progression also as far as size goes.) - Back Exam Back exam: Present: normal inspection - Neurological Exam Neurological exam: Present: alert, oriented X3, CN II-XII intact - Skin Skin exam: Present: normal color, warm, dry Results - Labs CBC & BMP: 04/06/17 05:46 04/06/17 05:46 Lab Results: I have reviewed the past 24 hour labs Quality Measures - VTE Contraindication to Pharmacological VTE Prophylaxis: High Risk of Bleeding
--- NOTE | 2017-04-06 16:17 | Cardiology Progress Note ---
I, Nidhi Salazar RN, am scribing for, and in the presence of, Kvng Calderon MD 16:08. Assessment and Plan (1) Paroxysmal SVT (supraventricular tachycardia) Status: Acute Assessment and plan: He is having this off and on still but it seems to be better. We will continue to titrate up his beta-johnathon as needed or add a calcium channel johnathon. In antiarrhythmic may be a consideration. Current Visit: Yes (2) Elevated troponin Status: Acute Assessment and plan: I do not think this is necessarily significant. He has been asymptomatic. Echocardiogram was unremarkable. Current Visit: Yes (3) Congestive heart failure Status: Acute Assessment and plan: He was elevated BNP. His chest x-ray may reveal both an element of congestive heart failure even pneumonia. His diuretic has been changed to p.o. His urine output has been good. His echocardiogram is unremarkable with ejection fraction and no gross cardiac cause for this to cause congestive heart failure. Current Visit: Yes (4) Anemia Status: Chronic Assessment and plan: He is receiving today. Current Visit: Yes (5) CLL (chronic lymphocytic leukemia) Status: Chronic Assessment and plan: Is followed by Dr. Murry. Current Visit: Yes (6) Pneumonia Status: Acute Assessment and plan: He has an elevated white count as well as abnormalities in his chest x-ray consistent with such. This certainly can contribute to his present cardiac issue. Current Visit: Yes (7) Renal failure Status: Acute Current Visit: Yes Cardiology - PN: Subj Interval history: Security Public Safety Officer: Dr. Calderon (new) Oncologist: Dr. Murry Mr. Paco Shaw is a 81 year old male who is never seen a iuss master analyst in the past. He denies any known heart problems, he also denies having had a heart catheterization or stress testing done in the past. He is followed by Dr. Murry for chronic lymphocytic leukemia. He is a poor historian. He denies any surgical history, and he also denies any family history. He reports is a lifetime non-smoker. Mr. Antonio reports he has been short of breath with a nonproductive cough for about a week. He cannot tell me if the shortness of breath is at rest, with exertion, or both. He reports having occasional chest pain for the past week as well. He cannot describe the pain to me or tell me any triggers or alleviators. He says it hurts in the middle top part of his chest beneath his throat. He rates it a 6 or a 7 on a scale of 1-10. He reports she has been having some palpitations at home, but denies any since admission. He also complains of weakness for the last week or so. He presented to the emergency department [facility] in [place] for the symptoms. He was found to have an elevated troponin of 0.38 and pro BNP of 11,036. He was transferred to our facility for further evaluation. Troponin on arrival here was 0.415 recheck last night was 0.271. Kidney function has been elevated with BUN of 50 and creatinine 2.0. He denies any known history of kidney problems. BNP was 433. H&H was 7.9 and 24.3. 2 units of red blood cells were ordered, one unit has been transfused. Potassium was 2.8. EKG on arrival here with sinus rhythm and right bundle branch block, heart rate of 82. Chest x-ray suggested small bilateral pleural effusions with right basilar pneumonia and left basilar atelectasis. In the emergency department he was given Lasix IV as well as Lopressor 25 mg p.o. he was also given duo nebs treatments and has been started on IV antibiotics. During the night he had some runs of sinus tach but now with SVT with narrow complex QRS in the 140s. He denies having any palpitations or chest pain with these episodes. April 06, 2017: Mr. Antonio is resting in bed,his son is at bedside. He denies any chest pain but does complain of some pain to his right side. He says he has been having this, but he has not complained of this to me. He appears to be slightly tachypneic, but he states his breathing is fine. Oxygen is in use via nasal cannula. He continues to have some periodic episodes of tachycardia. His H&H today is 7.6 and 23.9, Dr. Murry is ordered 2 more units of blood. Potassium is 3.8 today. Creatinine is improved to 1.8. Chest x-ray done this morning with right-sided pneumonia suspected, he is currently on IV Levaquin. Patient personally interviewed and examined today and chart reviewed. The patient earlier this morning had an episode of his atrial tachycardia. He is generally doing fairly well. Surgery plans on boxing his lesions tomorrow. If the patient continues to have these episodes of SVT we may can increase his beta -johnathon or add an antiarrhythmic or even add a calcium channel johnathon to this regimen. Will adjust this according to his needs. At present for the most part today he has been in sinus rhythm. Exam (Progress Note) - Constitutional Vitals: Period Temp Pulse Resp BP Sys/Corcoran Pulse Ox Last 24 Hr 97.3 F-99.2 F 64-139 16-24 103-130/54-68 90-99 Exam: General appearance: Elderly man that appears to be his age, normal weight, no acute distress HEENT exam: normal inspection, atraumatic. He has bandage over his right nose where there was previously noted skin lesion. Neck exam: normal inspection no JVD. No carotid bruit. Trachea is in midline Respiratory/lungs exam: clear to auscultation bilaterally good air movement. Cardiovascular exam: Regular with a little tachycardic. No gross murmur. No precordial lift. Chest wall exam: nontender GI/Abdominal exam: He has a large inguinal hernia present. Normal bowel sounds , soft, nontender. Extremeties/musculoskeletal: Trace edema lower extremities. Has wound of his right ankle. Neurological exam: alert, oriented X3, no focal deficits Psychiatric exam: normal affect, normal mood. Cognitive function is grossly normal. Skin exam: Skin lesions of his right nose and right ankle that we have noted previously. Result/EKG - Labs CBC & BMP: 04/06/17 05:46 04/06/17 05:46 Lab Results: I have reviewed the past 24 hour labs Labs: Laboratory Results - last 24 hr 04/05/17 04/05/17 04/05/17 02:30 02:50 15:30 WBC RBC Hgb Hct MCV MCH MCHC RDW Plt Count MPV Neut % (Auto) Lymph % (Auto) [place] % (Auto) Eos % (Auto) Baso % (Auto) Neut # (Auto) Lymph # (Auto) [place] # (Auto) Eos # (Auto) Baso # (Auto) Total Counted Immature Gran % Nucleated RBC % Immature Gran # Segmented Neutrophils Band Neutrophils Lymphocytes Eosinophils Nucleated RBCs # Anemia Panel Interp See comment Platelet Estimate Hypochromasia Microcytosis Sodium Potassium Chloride Carbon Dioxide Anion Gap BUN Creatinine GFR Calculation BUN/Creatinine Ratio Glucose Calculated Osmolality Calcium Phosphorus Magnesium B-Natriuretic Peptide Albumin 1.6 L 25-OH Vitamin D Total PTH Intact Urine Color Yellow Urine Appearance Clear Urine pH 5.0 Ur Specific [place] 1.009 Urine Protein Negative Urine Glucose (UA) Negative Urine Ketones Negative Urine Blood Small Urine Nitrate Negative Urine Bilirubin Negative Urine Urobilinogen < 2.0 H Urine Leukocytes Negative Urine RBC 1 Urine WBC 1 Ur Squamous Epith Cells Occasional Urine Mucus Occasional Ur Culture Indicated? Not indicated 04/06/17 04/06/17 04/06/17 05:46 05:46 05:46 WBC 37.5 H RBC 2.69 L Hgb 7.6 L Hct 23.9 L MCV 88.8 MCH 28 MCHC 31.8 L RDW 17.6 H Plt Count 206 MPV 9.7 Neut % (Auto) 25.6 L Lymph % (Auto) 47.9 [place] % (Auto) 25.4 H Eos % (Auto) 0.1 Baso % (Auto) 0.1 Neut # (Auto) 9.6 H Lymph # (Auto) 18.0 H [place] # (Auto) 9.5 H Eos # (Auto) 0.0 Baso # (Auto) 0.0 Total Counted 100 Immature Gran % 0.9 Nucleated RBC % 0.0 Immature Gran # 0.34 Segmented Neutrophils 33 L Band Neutrophils 16 H Lymphocytes 50 Eosinophils 1 Nucleated RBCs # 0.00 Anemia Panel Interp Platelet Estimate Adequate Hypochromasia 2+ Microcytosis 1+ Sodium 138 Potassium 3.8 Chloride 98 Carbon Dioxide 32 Anion Gap 11.8 BUN 52 H Creatinine 1.80 H GFR Calculation 41 BUN/Creatinine Ratio 28.00 H Glucose 102 Calculated Osmolality 288.7 Calcium 7.9 L Phosphorus 2.5 Magnesium B-Natriuretic Peptide 543 H Albumin 25-OH Vitamin D Total PTH Intact Urine Color Urine Appearance Urine pH Ur Specific [place] Urine Protein Urine Glucose (UA) Urine Ketones Urine Blood Urine Nitrate Urine Bilirubin Urine Urobilinogen Urine Leukocytes Urine RBC Urine WBC Ur Squamous Epith Cells Urine Mucus Ur Culture Indicated? 04/06/17 04/06/17 05:46 05:46 WBC RBC Hgb Hct MCV MCH MCHC RDW Plt Count MPV Neut % (Auto) Lymph % (Auto) [place] % (Auto) Eos % (Auto) Baso % (Auto) Neut # (Auto) Lymph # (Auto) [place] # (Auto) Eos # (Auto) Baso # (Auto) Total Counted Immature Gran % Nucleated RBC % Immature Gran # Segmented Neutrophils Band Neutrophils Lymphocytes Eosinophils Nucleated RBCs # Anemia Panel Interp Platelet Estimate Hypochromasia Microcytosis Sodium 137 Potassium 3.8 Chloride 97 L Carbon Dioxide 33 H Anion Gap 10.8 BUN 53 H Creatinine 1.80 H GFR Calculation 41 BUN/Creatinine Ratio 29.00 H Glucose 107 H Calculated Osmolality 286.8 Calcium 7.9 L Phosphorus Magnesium 2.5 H B-Natriuretic Peptide Albumin 25-OH Vitamin D Total 10.3 PTH Intact 95.4 H Urine Color Urine Appearance Urine pH Ur Specific [place] Urine Protein Urine Glucose (UA) Urine Ketones Urine Blood Urine Nitrate Urine Bilirubin Urine Urobilinogen Urine Leukocytes Urine RBC Urine WBC Ur Squamous Epith Cells Urine Mucus Ur Culture Indicated? - Impressions Impressions: Rhythm is been sinus with an earlier episode of atrial tachycardia today. Kvng Méndez John Timothy, MD, personally performed the services described in this documentation, ascribed by Nidhi Salazar RN in my presence, and it is both accurate and complete .
[2017-04-06 21:43] LABS: Hematocrit 30.9 VOL% (42.0-52.0); Hemoglobin 10.4 GM/DL (14.0-18.0)
--- NOTE | 2017-04-06 22:19 | Nephrology Progress Note ---
Nephrology - PN: Subj Interval history: He denies shortness of breath or pain. He remains weak Exam (PN)-Nephrology - Vital Signs Vital signs: Period Temp Pulse Resp BP Sys/Corcoran Pulse Ox Last 24 Hr 97.3 F-98.9 F 74-104 16-24 104-130/56-86 91-99 Exam: ENT: Normal Cardiovascular: Regular rate and rhythm. No murmur rub or gallop Lungs: Clear Extremities: Trace edema - Lab 04/06/17 21:34 04/06/17 05:46 Most recent lab results Calcium 7.9 MG/DL (8.5-10.1) L 04/06/17 05:46 Phosphorus 2.5 MG/DL (2.5-4.9) 04/06/17 05:46 Magnesium 2.5 MG/DL (1.8-2.4) H 04/06/17 05:46 Assessment and Plan (1) Chronic kidney disease, stage III (moderate) Status: Acute Assessment and plan: 81-year-old man admitted with: * CLL. Followed by Dr. Murry * Pneumonia, right lower lobe. Continue Levaquin. He has small bilateral pleural effusions. Albumin is quite low at 1.6.. Ejection fraction normal * Renal failure. Ultrasound shows increased echogenicity. Urinalysis shows no proteinuria. Renal function improved today with decreasing diuretic dose * Cellulitis, right leg * Paroxysmal SVT Current Visit: Yes (2) Cellulitis and abscess of left lower extremity Status: Acute Current Visit: Yes (3) Hypokalemia Status: Acute Current Visit: Yes (4) Leukocytosis Status: Acute Current Visit: Yes (5) Paroxysmal SVT (supraventricular tachycardia) Status: Acute Current Visit: Yes (6) Pneumonia Status: Acute Current Visit: Yes (7) CLL (chronic lymphocytic leukemia) Status: Chronic Current Visit: Yes
[2017-04-07] MEDS: ALBUTEROL/IPRATROPIUM 3 ML NEB RESP TX SCH ×6 (03:49→23:51)
[2017-04-07 07:19] LABS: Basophils # 0.1 10*3/uL (0.0-0.2); Basophils % 0.2 % (0.0-0.8); Eosinophils # 0.1 10*3/uL (0.0-0.87); Eosinophils % 0.1 % (0.00-10.9); Hematocrit 30.5 VOL% (42.0-52.0); Hemoglobin 9.8 GM/DL (14.0-18.0); Immature Granulocytes % 0.7 %; Immature Granulocytes Absolute 0.29 #; Lymphocytes # 21.4 10*3/uL (1.4-4.0); Lymphocytes % 54.6 % (21.2-54.2); Mean Corpuscular HGB Conc 32.1 GM/DL (32-36); Mean Corpuscular Hemoglobin 28 PG (27-34); Mean Corpuscular Volume 87.9 FL (87-102); Mean Platelet Volume 9.7 FL (9.6-12.0); Monocytes # 7.7 10*3/uL (0.11-0.8); Monocytes % 19.6 % (1.7-12.7); Neutrophils # 9.7 10*3/uL (1.4-7.4); Neutrophils % 24.8 % (38.7-73.9); Platelet Count 213 T/CUMM (130-400); Red Blood Count 3.47 MC/CUMM (3.8-5.5); Red Cell Distribution Width 16.9 % (9.3-17.3); White Blood Count 39.2 T/CUMM (4-12)
[2017-04-07 07:29] LABS: INR 1.2; PT Patient Result 12.4 SECS; Partial Thromboplastin Time 30.8 SECS (0-40)
--- NOTE | 2017-04-07 07:46 | Oncology Progress Note ---
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 However, is extremely early stage and does not require treatment. He was admitted with congestive heart failure, part of which was caused by the fact that he was significantly anemic. I think he has received 3 units of packed red cells at this point. Lab work today includes a hemoglobin of 9.8 with a white cell count 39,200 and a platelet count of 213,000. Haptoglobin is actually high at 416 and this is not likely hemolytic anemia. The peritoneum level is normal at 305.5. Thyroid function is normal. Iron studies suggested this is probably a combination of iron deficiency and anemia of chronic disease. He has a low serum iron of 16 but he also has a low total iron-binding capacity of 132. His 4 biopsies of several skin lesions today. These could be neoplastic or infectious. Dr. Toth will be performing the procedure. If his hemoglobin drops below 8.5, I would transfuse a couple more units of packed red cells. I am not sure how practical it would be to pursue any evidence of GI blood loss. Exam - Constitutional Vitals: Period Temp Pulse Resp BP Sys/Corcoran Pulse Ox Last 24 Hr 97.5 F-99.1 F 74-104 16-25 104-144/56-86 91-99 Results - Labs CBC & BMP: 04/07/17 04:37 04/07/17 04:37 Quality Measures - VTE Contraindication to Pharmacological VTE Prophylaxis: High Risk of Bleeding
[2017-04-07 07:50] LABS: Band Neutrophils 3 % (0-10); Hypochromasia 2+; Lymphocytes 56 % (20-55); Microcytosis Slight; Platelet Estimate Adequate; Segmented Neutrophils 37 % (50-85); Total Cells Counted 100
[2017-04-07 07:59] LABS: Albumin 1.4 G/DL (3.4-5.0); Bilirubin,Total 3.3 MG/DL (0.2-1.0); Calcium 7.7 MG/DL (8.5-10.1); Calcium 7.8 MG/DL (8.5-10.1); Magnesium 2.7 MG/DL (1.8-2.4); Osmolality,Calculated 286.1 MOS/KG (273-304); Potassium 4.3 MMOL/L (3.5-5.1); Total Protein 5.6 G/DL (6.4-8.3)
[2017-04-07] MEDS: POTASSIUM CHLORIDE 20 MEQ TABLET PO SCH ×2 (08:06→20:41)
[2017-04-07] MEDS: PANTOPRAZOLE 40 MG TABLET PO SCH (08:06)
[2017-04-07] MEDS: FUROSEMIDE 40 MG TABLET PO SCH (08:06)
[2017-04-07] MEDS: METOPROLOL TARTRATE 50 MG TABLET PO SCH ×2 (08:06→20:40)
[2017-04-07] MEDS: FLUCONAZOLE 100 MG TABLET PO SCH (08:06)
[2017-04-07] MEDS: BACITRACIN OINT 0.9 GM PACK TOP SCH (08:06)
[2017-04-07] MEDS: SKIN HEALING OINT (AQUAPHOR) 50 GM TUBE TOP SCH (08:06)
[2017-04-07] MEDS: MULTIVITAMIN (CENTRUM) TABLET PO SCH (08:06)
[2017-04-07] MEDS ORDERED: BUPIVACAINE 0.5% 50 ML VIAL ONE (08:48)
[2017-04-07] MEDS ORDERED: BACITRACIN OINT 0.9 GM PACK TOP ONE (10:24)
[2017-04-07] MEDS ORDERED: GLUCAGON 1 MG VIAL IM PRN (10:31)
[2017-04-07] MEDS ORDERED: ONDANSETRON 4 MG/2 ML VIAL IV PRN (10:31)
[2017-04-07] MEDS ORDERED: DEXTROSE 50% 25 GM/50 ML VIAL IV PRN (10:31)
[2017-04-07] MEDS ORDERED: CHLORHEXIDINE 4% SOLN 118 ML BOTTLE TOP ONE (10:37)
--- NOTE | 2017-04-07 10:43 | Anesthesia Post-Op ---
Anesthesia Post OP - Post Ansesthetic Evaluation Patient seen in post op: Yes Resp: within normal limits CV: within normal limits Mental: within normal limits Temp: within normal limits Aral-Fo-Ebezulwog: within normal limits Nausea and Vomiting: within normal limits Pain: within normal limits
[2017-04-07] MEDS ORDERED: SEVOFLURANE 1 UNIT/15 MINUTE INH ONE (10:47)
[2017-04-07] MEDS ORDERED: fentaNYL 100 MCG/2 ML VIAL ONE (10:47)
--- NOTE | 2017-04-07 10:56 | Operative Note ---
Date of procedure: 04/07/17 Pre-op diagnosis: Progressing necrotic ulcers of the right lower extremity right ear base nos Post-op diagnosis: same Procedure: Operative note: Preoperative diagnosis: 1. Progressive necrotic ischemic wound of the right ankle 2. Progressive necrotic wound of the medial aspect of the right leg 3. Progressive necrotic ulcerated area right ear 4. Aggressive necrotic area right side base of the nose Postoperative diagnosis: 1. Necrotic infected wounds of the right ankle possibly necrotizing fasciitis or severe vasculitis 2. Progressive necrotic infected wound medial aspect of the leg possibly due to necrotizing fasciitis 3. Necrotic infected ulcerated area right ear etiology unclear 4. Necrotic ulcerated area base of the nose right side Procedure: 1. Extensive excisional debridement of skin subtenons tissue fascia of the right ankle ulcer 2. Extensive debridement of skin subcutaneous tissue ulcer of the medial aspect of the right leg 3. Excisional debridement of ulcer of the right ear 4. Extensive debridement of ulcer base of the right nose. Surgeon Dr. Toth Anesthesia was general with local 0.25% Marcaine plain mixed [id number] 1% Xylocaine plain. Brief history: 81-year-old white male with leukemia some underlying cardiac disease who comes in with a blistered necrotic looking area on the lateral aspect of the right ankle. There is little swelling within the did not look erythematous at this time. He also what had what looked like an abscess area at the base of the right ear and did an ulcerated area at the base of the nose. We started him on antibiotics and observe these areas starting some local wound care to see had a would respond. We saw nothing but progression especially of the right ankle area with a new area showing up on the medial aspect of the right leg. The ear and facial area continued to stay about the same at this time. Due to this progression would like to bring the surgery at this time get this area debrided best we can. Hope to take some biopsies and stuck to try to determine exactly what we are dealing with here this process. Patient has chronic lymphocytic leukemia I do not know if this is part of the process of this time. Procedure: With patient in supine position prepped and draped in sterile fashion I elected to approach the area of the right ear first infiltrated with some local anesthetic around it. There is a small necrotic center portion with necrotic fatty tissue in the center of it. I was able to go ahead and take the scissors and debride that necrotic fatty tissue out of the base of this ulcer at this time and take a knife and excise around the skin edge taken at skin edge for culture as well as sending it for pathology. Cultures of the tissue deep was collected at this time. Once that was clean we washed irrigated this out using electrocauterization controlling bleeding. The wound of the ear is now 3 x 1 x 0.5 cm. I next moved to the base of the nose area. Initially we thought this was just a small eschar where he had picked at it but now it is more ulcerated than what looked like before. I took the scissors at this point and debrided the necrotic fatty tissue in the center of this wound in order to get this cleaned. At that point then I took a knife and excise around the skin edges as I could get a biopsy of this to see what this might represent at this time. Once we had debrided this and cleaned it up well washed irrigated it out at this time and used electrocauterization control bleeding. We now have a wound that is 1.8 x 1.4 x 0.4 cm Next moved down to the lower extremity were approaches area of the large wound that is on the lateral part of the ankle. This was extensive necrotic tissue in this area with necrotic skin necrotic fatty tissue also. A lot of it just came out of my hand is a manipulated the tissue surface at this time. I took the scissors begin to debride that necrotic fatty and skin tissue away in order to get down to the base where there is purulent drainage which we cultured aerobically and anaerobically. I then debrided deep fatty tissue and fascial tissue to get additional tissue for cultures at this time and debride that whole base as clean as I could get it. This extended up before we took some skin along the edges for pathology to can understand what process we might be dealing with at this point. Debrided that around and clear to look like I was beyond the end infected or necrotic tissue at this time leaving a large wound present in this area. I then use light cauterization control bleeding and then irrigated this wound bed with saline solution. Once we had completed that we now have a wound that is 15 x 11 x 2 cm That completed I went to the medial leg wound where there were 2 circular necrotic looking areas that on manipulation were just necrotic skin and were communicating with each other. I was able to take the scissors and debride that necrotic skin and fatty tissue away to create one wound at this time. Some necrotic fatty tissue in this area that we took for cultures as well as swabs for cultures in this region. I did trim around the skin edges to get a good clean skin edge at this point to understand what we are dealing with here. Debrided this down to a good clean base all way around and used electrocauterization controlling bleeding. We irrigated out the wound saline solution. We now have a wound that is 8.5 x 6 x 1.5 cm. At that point we dressed all the wounds with the Aquacel Ag gauze fluffs over them and then wrapped the leg up with cast padding Covan and applied Mepilex border gauze is to the nose and ear area. Patient was then was taken recovery room. Estimated blood loss 30 cc Sponge count correct 2 Drains none Complications none Condition stable satisfactory Anesthesia: GLO, local Surgeon / Physician: Gregory Toth Estimated blood loss: other (30 cc) Specimens: other (Tissue for cultures and pathology) Condition: stable Disposition: floor Results - Labs CBC & BMP: 04/07/17 04:37 04/07/17 04:37 Discharge Plan - Discharge Medications No Action Multivit-Min36/Iron/Folic Acid [Geritol Complete Tablet] 1 each PO QAM Aspirin/Caffeine [Bc Powder Packet] 1 each PO BID - Follow Up or Referral - Forms/Instructions
[2017-04-07] MEDS ORDERED: PROPOFOL 200 MG/20 ML VIAL IV ONE (11:00)
[2017-04-07] MEDS ORDERED: SUCCINYLCHOLINE 200 MG/10 ML VIAL ONE (11:00)
[2017-04-07] MEDS ORDERED: LIDOCAINE 2% 5 ML VIAL ONE (11:00)
[2017-04-07] MEDS: INSULIN REGULAR 100 UNIT/ML SUBCUT SCH ×3 (11:29→20:41)
[2017-04-07] MEDS: SODIUM CHLORIDE 0.9% 1,000 ML IV SCH (11:41)
[2017-04-07] MEDS: PIPERACILLIN/TAZOBACTAM 3,375 MG in SODIUM CHLORIDE 0.9% 100 ML IV SCH ×2 (11:42→18:12)
--- NOTE | 2017-04-07 12:34 | Cardiology Progress Note ---
Assessment and Plan (1) Paroxysmal SVT (supraventricular tachycardia) Status: Acute Assessment and plan: This is been fairly stable the last 18-24 hours. Surgery was done today without any rhythm abnormalities documented in the chart. We will continue his therapy. Current Visit: Yes (2) Elevated troponin Status: Resolved Assessment and plan: At this time do not think this is a significant cardiac issue. Current Visit: Yes (3) Congestive heart failure Status: Acute Assessment and plan: He was elevated BNP. He may have an element of heart failure present but this more likely from volume overload and not secondary to cardiac dysfunction. Current Visit: Yes (4) Anemia Status: Chronic Assessment and plan: He received blood yesterday and his hematocrit is better today. This is being evaluated by hematology. Current Visit: Yes (5) CLL (chronic lymphocytic leukemia) Status: Chronic Assessment and plan: Is followed by Dr. Murry. Current Visit: Yes (6) Pneumonia Status: Acute Assessment and plan: This is being treated. Current Visit: Yes (7) Renal failure Status: Acute Assessment and plan: BUN and creatinine are elevated more so today. With his BUN up a little bit some this may be prerenal. Current Visit: Yes Cardiology - PN: Subj Interval history: Patient is almost immediate postop from multiple wounds debrided by Dr. Toth today. Patient still somewhat obtunded from his anesthesia. He is now responsive. In regard to his cardiac issues specifically his paroxysmal SVT this is been fairly stable on present regimen. Based on his surgical records and [employer] you records I do not see that he had any issues with surgery are immediate postop. His vital signs have remained stable. His heart rates in the most part have been in the 70s and 80s. At present they are more in the 90s but this was perioperatively. Exam (Progress Note) - Constitutional Vitals: Period Temp Pulse Resp BP Sys/Corcoran Pulse Ox Last 24 Hr 97.2 F-99.1 F 74-99 14-25 110-144/49-86 91-99 Exam: General appearance: Elderly man that appears obtunded from his surgery and anesthesia. no acute distress HEENT exam: normal inspection, atraumatic. He has bandage over his right nose and right ear. Where there was previously noted skin lesion. Neck exam: normal inspection no JVD. No carotid bruit. Trachea is in midline Respiratory/lungs exam: clear to auscultation bilaterally good air movement. Cardiovascular exam: Regular with a little tachycardic. No gross murmur. No precordial lift. Chest wall exam: nontender GI/Abdominal exam: He has a large inguinal hernia present. Normal bowel sounds , soft, nontender. Extremeties/musculoskeletal: His right lower leg is wrapped from about the lobe of the knee all the way in the including his foot. He has left ankle area is wrapped. Neurological exam: Patient little sedate and obtunded postoperatively secondary to his anesthesia. Psychiatric exam: At present he is a little obtunded postoperatively from his anesthesia Skin exam: Skin is warm but he has had lesions there now been debrided and covered. Result/EKG - Labs CBC & BMP: 04/07/17 04:37 04/07/17 04:37 Lab Results: I have reviewed the past 24 hour labs Labs: Laboratory Results - last 24 hr 04/06/17 04/06/17 04/07/17 05:46 21:34 04:37 WBC 39.2 H RBC 3.47 L D Hgb 10.4 L D 9.8 L Hct 30.9 L 30.5 L MCV 87.9 MCH 28 MCHC 32.1 RDW 16.9 Plt Count 213 MPV 9.7 Neut % (Auto) 24.8 L Lymph % (Auto) 54.6 H [place] % (Auto) 19.6 H Eos % (Auto) 0.1 Baso % (Auto) 0.2 Neut # (Auto) 9.7 H Lymph # (Auto) 21.4 H [place] # (Auto) 7.7 H Eos # (Auto) 0.1 Baso # (Auto) 0.1 Total Counted 100 Immature Gran % 0.7 Nucleated RBC % 0.0 Immature Gran # 0.29 Segmented Neutrophils 37 L Band Neutrophils 3 Lymphocytes 56 H Monocytes 4 Nucleated RBCs # 0.00 Platelet Estimate Adequate Hypochromasia 2+ Microcytosis Slight INR PT Patient/Control Mix Circ Anticoag PTT Sodium Potassium Chloride Carbon Dioxide Anion Gap BUN Creatinine GFR Calculation BUN/Creatinine Ratio Glucose POC Glucose Calculated Osmolality Calcium Magnesium Total Bilirubin AST ALT Alkaline Phosphatase Total Protein Albumin Globulin Albumin/Globulin Ratio Blood Type A POSITIVE Antibody Screen Negative Crossmatch See Detail 04/07/17 04/07/17 04/07/17 04:37 04:37 04:37 WBC RBC Hgb Hct MCV MCH MCHC RDW Plt Count MPV Neut % (Auto) Lymph % (Auto) [place] % (Auto) Eos % (Auto) Baso % (Auto) Neut # (Auto) Lymph # (Auto) [place] # (Auto) Eos # (Auto) Baso # (Auto) Total Counted Immature Gran % Nucleated RBC % Immature Gran # Segmented Neutrophils Band Neutrophils Lymphocytes Monocytes Nucleated RBCs # Platelet Estimate Hypochromasia Microcytosis INR 1.2 PT Patient/Control Mix 12.4 Circ Anticoag PTT 30.8 Sodium 135 L 136 Potassium 4.3 4.3 Chloride 97 L 97 L Carbon Dioxide 28 28 Anion Gap 14.3 15.3 H BUN 57 H 58 H Creatinine 2.10 H 2.10 H GFR Calculation 34 34 BUN/Creatinine Ratio 27.00 H 27.00 H Glucose 122 H 121 H POC Glucose Calculated Osmolality 286.1 288.0 Calcium 7.7 L 7.8 L Magnesium 2.7 H Total Bilirubin 3.30 H AST 78 H ALT 35 Alkaline Phosphatase 189 H Total Protein 5.6 L Albumin 1.4 L Globulin 4.2 H Albumin/Globulin Ratio 0.3 L Blood Type Antibody Screen Crossmatch 04/07/17 11:29 WBC RBC Hgb Hct MCV MCH MCHC RDW Plt Count MPV Neut % (Auto) Lymph % (Auto) [place] % (Auto) Eos % (Auto) Baso % (Auto) Neut # (Auto) Lymph # (Auto) [place] # (Auto) Eos # (Auto) Baso # (Auto) Total Counted Immature Gran % Nucleated RBC % Immature Gran # Segmented Neutrophils Band Neutrophils Lymphocytes Monocytes Nucleated RBCs # Platelet Estimate Hypochromasia Microcytosis INR PT Patient/Control Mix Circ Anticoag PTT Sodium Potassium Chloride Carbon Dioxide Anion Gap BUN Creatinine GFR Calculation BUN/Creatinine Ratio Glucose POC Glucose 180 H Calculated Osmolality Calcium Magnesium Total Bilirubin AST ALT Alkaline Phosphatase Total Protein Albumin Globulin Albumin/Globulin Ratio Blood Type Antibody Screen Crossmatch Quality Measures - VTE Contraindication to Pharmacological VTE Prophylaxis: High Risk of Bleeding
--- NOTE | 2017-04-07 13:54 | Hospitalist Progress Note ---
Assessment and Plan (1) Pneumonia Status: Acute Assessment and plan: We will continue antibiotic for pneumonia. Patient has been afebrile white count is still elevated due to CLL count this morning was 39,000 Current Visit: Yes (2) Anemia Status: Chronic Assessment and plan: P hemoglobin hematocrit improved after transfusion. Yesterday after transfusion hemoglobin was 10.4 this morning it is 9.8 keep follow and transfuse as needed Current Visit: Yes (3) Congestive heart failure Status: Acute Assessment and plan: Patient has preserved LV function likely his volume status was due to hypoalbuminemia. He is only on once a day Lasix now per nephrology Current Visit: Yes (4) Elevated troponin Status: Resolved Assessment and plan: Being followed by cardiology and feels this is due to SVT and renal disease Current Visit: Yes (5) Renal failure Status: Acute Assessment and plan: Patient has abnormal renal function. No lab work from past available to compare but seems like she he has chronic kidney disease. His PTH level is elevated but he also has vitamin D deficiency I will start on vitamin D His GFR has grossly unchanged from admission this may be his baseline creatinine level nephrology also following Current Visit: Yes (6) CLL (chronic lymphocytic leukemia) Status: Chronic Assessment and plan: Followed by Dr. Murry Current Visit: Yes (7) Hypokalemia Status: Acute Assessment and plan: Potassium level is within normal limits. Keep monitor Current Visit: Yes (8) Cellulitis and abscess of left lower extremity Status: Acute Assessment and plan: Patient underwent surgery to the right leg for cellulitis /abcess. He also had surgical right face close and ulcerated area on the right ear he had extensive debridement as mentioned above. Not sure at present what biopsy on her specimen was taken for culture. He is on antibiotic for possible cellulitis and will be continued Current Visit: Yes (9) Paroxysmal SVT (supraventricular tachycardia) Status: Acute Assessment and plan: Followed by a cardiology no recent episode Current Visit: Yes (10) Abnormal LFTs Status: Acute Assessment and plan: Abnormal liver function noted on level today with severe hypoalbuminemia. Part of this may be due to poor nutrition but he also has elevated total bilirubin level I will order liver /biliary ultrasound I have Encouraging him to eat but patient seemed to have a poor appetite. 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 He had extensive excisional debridement of skin subtenons tissue fascia of the right ankle ulcer, extensive debridement of skin subcutaneous tissue ulcer of the medial aspect of the right leg, excisional debridement of ulcer of the right ear and extensive debridement of ulcer base of the right nose. He seems to be still under the effect of anesthesia. But awake enough to greet me but unable to hold long conversation. He is afebrile. Son has mentioned this history of not eating even not consuming boost provided to him. Seen by cardiology today. No episodes of SVT reported in recent hours. He was further transfused with the packed RBC unit after the round Exam - Constitutional Vitals: Period Temp Pulse Resp BP Sys/Corcoran Pulse Ox Last 24 Hr 97.2 F-99.1 F 74-99 14-25 106-144/49-86 91-99 General appearance: no acute distress - Respiratory Respiratory exam: Present: rales (I can hear Rales bilaterally at the bases) absent: rhonchi - Cardiovascular Cardiovascular exam: Present: regular rate and rhythm. Absent: tachycardia - GI/Abdominal GI/Abdominal exam: Present: normal bowel sounds, hernia (Large inguinal hernia seem to be bilateral present without any tenderness and is chronic), soft. Absent: tenderness - Extremities Exam Extremities exam: Present: edema (Mild edema of lower extremities) right leg is dressed - Neurological Exam Neurological exam: Present: alert Results - Labs CBC & BMP: 04/07/17 04:37 04/07/17 04:37 Lab Results: I have reviewed the past 24 hour labs Quality Measures - VTE Contraindication to Pharmacological VTE Prophylaxis: High Risk of Bleeding
[2017-04-07 14:45] LABS: Basophils # 0.1 10*3/uL (0.0-0.2); Basophils % 0.2 % (0.0-0.8); Hematocrit 30.7 VOL% (42.0-52.0); Hemoglobin 10.1 GM/DL (14.0-18.0); Immature Granulocytes Absolute 0.48 #; Lymphocytes # 22.6 10*3/uL (1.4-4.0); Lymphocytes % 48.1 % (21.2-54.2); Mean Corpuscular HGB Conc 32.9 GM/DL (32-36); Mean Corpuscular Hemoglobin 29 PG (27-34); Mean Corpuscular Volume 87.7 FL (87-102); Mean Platelet Volume 9.5 FL (9.6-12.0); Monocytes # 10.2 10*3/uL (0.11-0.8); Monocytes % 21.7 % (1.7-12.7); Neutrophils # 13.6 10*3/uL (1.4-7.4); Platelet Count 236 T/CUMM (130-400); Red Cell Distribution Width 17.1 % (9.3-17.3)
[2017-04-07 14:54] LABS: White Blood Count 46.9 T/CUMM (4-12)
[2017-04-07] MEDS: GENTAMICIN 0.1% OINT 15 GM TUBE TOP SCH ×2 (15:16→20:44)
[2017-04-07 15:47] LABS: Lymphocytes 64 % (20-55); Metamyelocytes 1 %; Polychromasia Few; Segmented Neutrophils 34 % (50-85); Total Cells Counted 100
[2017-04-07 15:48] LABS: Hypochromasia 1+; Platelet Estimate Normal
[2017-04-07] MEDS: LEVOFLOXACIN INJ 750 MG in PREMIX 1 EACH IV SCH (19:52)
[2017-04-07] MEDS: ceFAZolin 2,000 MG in PREMIX 1 EACH IV SCH (21:24)
--- NOTE | 2017-04-07 23:06 | Nephrology Progress Note ---
Nephrology - PN: Subj Interval history: He was seen shortly after surgery this morning. He was still slightly sedated. He denied shortness of breath. Exam (PN)-Nephrology - Vital Signs Vital signs: Period Temp Pulse Resp BP Sys/Corcoran Pulse Ox Last 24 Hr 97.0 F-98.5 F 74-99 14-25 97-143/49-68 92-99 Exam: ENT: Normal Cardiovascular: Regular rate and rhythm. No murmur rub or gallop Lungs: Clear Extremities: Trace edema - Lab 04/07/17 14:37 04/07/17 04:37 Most recent lab results Calcium 7.8 MG/DL (8.5-10.1) L 04/07/17 04:37 Phosphorus 2.5 MG/DL (2.5-4.9) 04/06/17 05:46 Magnesium 2.7 MG/DL (1.8-2.4) H 04/07/17 04:37 Assessment and Plan (1) Chronic kidney disease, stage III (moderate) Status: Acute Assessment and plan: 81-year-old man admitted with: * CLL. Followed by Dr. Murry * Pneumonia, right lower lobe. Continue Levaquin. He has small bilateral pleural effusions. Albumin is quite low at 1.6.. Ejection fraction normal * Renal failure. Ultrasound shows increased echogenicity. Urinalysis shows no proteinuria. Renal function stable. This appears to be his baseline * Cellulitis, right leg. Status post debridement * Paroxysmal SVT Current Visit: Yes (2) Cellulitis and abscess of left lower extremity Status: Acute Current Visit: Yes (3) Hypokalemia Status: Acute Current Visit: Yes (4) Leukocytosis Status: Acute Current Visit: Yes (5) Paroxysmal SVT (supraventricular tachycardia) Status: Acute Current Visit: Yes (6) Pneumonia Status: Acute Current Visit: Yes (7) CLL (chronic lymphocytic leukemia) Status: Chronic Current Visit: Yes
[2017-04-08] MEDS: ALBUTEROL/IPRATROPIUM 3 ML NEB RESP TX SCH ×5 (03:09→20:32)
[2017-04-08] MEDS: PIPERACILLIN/TAZOBACTAM 3,375 MG in SODIUM CHLORIDE 0.9% 100 ML IV SCH ×2 (03:15→10:29)
[2017-04-08] MEDS: ceFAZolin 2,000 MG in PREMIX 1 EACH IV SCH (05:02)
[2017-04-08 06:20] LABS: Basophils # 0.1 10*3/uL (0.0-0.2); Basophils % 0.1 % (0.0-0.8); Eosinophils # 0.1 10*3/uL (0.0-0.87); Eosinophils % 0.3 % (0.00-10.9); Hematocrit 29.4 VOL% (42.0-52.0); Hemoglobin 9.5 GM/DL (14.0-18.0); Immature Granulocytes Absolute 0.44 #; Lymphocytes # 23.3 10*3/uL (1.4-4.0); Lymphocytes % 51.5 % (21.2-54.2); Mean Corpuscular HGB Conc 32.3 GM/DL (32-36); Mean Corpuscular Hemoglobin 28 PG (27-34); Mean Platelet Volume 9.4 FL (9.6-12.0); Monocytes # 8.4 10*3/uL (0.11-0.8); Monocytes % 18.6 % (1.7-12.7); Neutrophils # 12.9 10*3/uL (1.4-7.4); Neutrophils % 28.5 % (38.7-73.9); Platelet Count 247 T/CUMM (130-400); Red Blood Count 3.34 MC/CUMM (3.8-5.5); Red Cell Distribution Width 17.2 % (9.3-17.3)
[2017-04-08 06:28] LABS: White Blood Count 45.2 T/CUMM (4-12)
[2017-04-08 06:54] LABS: Albumin 1.2 G/DL (3.4-5.0); Bilirubin,Total 1.9 MG/DL (0.2-1.0); Calcium 7.8 MG/DL (8.5-10.1); Potassium 4.9 MMOL/L (3.5-5.1); Total Protein 5.5 G/DL (6.4-8.3)
[2017-04-08 06:55] LABS: Band Neutrophils 5 % (0-10); Total Cells Counted 100
[2017-04-08 06:58] LABS: Acanthocytes Few; Hypochromasia 2+; Lymphocytes 45 % (20-55); Ovalocytes 1+; Platelet Estimate Normal; Segmented Neutrophils 29 % (50-85); Target Cells 1+
[2017-04-08] MEDS: oxyCODONE/ACETAMINOPHEN 5-325 MG TABLET PO PRN (07:10)
--- NOTE | 2017-04-08 07:44 | Oncology Progress Note ---
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 However, is extremely early stage and does not require treatment. He was admitted with congestive heart failure, part of which was caused by the fact that he was significantly anemic. I think he has received 3 units of packed red cells at this point. Lab work today includes a hemoglobin of 9.8 with a white cell count 39,200 and a platelet count of 213,000. Haptoglobin is actually high at 416 and this is not likely hemolytic anemia. The peritoneum level is normal at 305.5. Thyroid function is normal. Iron studies suggested this is probably a combination of iron deficiency and anemia of chronic disease. He has a low serum iron of 16 but he also has a low total iron-binding capacity of 132. His 4 biopsies of several skin lesions today. These could be neoplastic or infectious. Dr. Toth will be performing the procedure. If his hemoglobin drops below 8.5, I would transfuse a couple more units of packed red cells. Exam - Constitutional Vitals: Period Temp Pulse Resp BP Sys/Corcoran Pulse Ox Last 24 Hr 97.0 F-98.5 F 75-99 14-21 97-138/49-68 92-99 Results - Labs CBC & BMP: 04/08/17 05:18 04/08/17 05:18 Quality Measures - VTE Contraindication to Pharmacological VTE Prophylaxis: High Risk of Bleeding
--- NOTE | 2017-04-08 08:30 | Ultrasound Report ---
Liver ultrasound. Indication: Abnormal liver function tests. The liver is enlarged with a length of 20.7 cm. There is fatty infiltration of the liver. No focal liver lesions are identified. The common duct is prominent at 7 mm. Gallstones are seen. There is gallbladder wall thickening at meters. The right kidney presents a normal appearance. The pancreas is completely obscured by bowel gas. Impression: Enlarged fatty liver. Cholelithiasis with gallbladder wall thickening suspicious for cholecystitis. Prominence of the common bile duct. PROCEDURE INTERPRETED AT [facility] ([facility]) DEPARTMENT OF RADIOLOGY Final Report Signed by: Dr. Pam Trivedi
[2017-04-08] MEDS: HYDROmorphone 2 MG/1 ML VIAL IV PRN ×2 (09:16→12:06)
[2017-04-08] MEDS: MULTIVITAMIN (CENTRUM) TABLET PO SCH (09:17)
[2017-04-08] MEDS: FUROSEMIDE 40 MG TABLET PO SCH (09:17)
[2017-04-08] MEDS: PANTOPRAZOLE 40 MG TABLET PO SCH (09:17)
[2017-04-08] MEDS: FLUCONAZOLE 100 MG TABLET PO SCH (09:17)
[2017-04-08] MEDS: METOPROLOL TARTRATE 50 MG TABLET PO SCH ×2 (09:17→21:32)
[2017-04-08] MEDS: GENTAMICIN 0.1% OINT 15 GM TUBE TOP SCH ×3 (09:20→22:30)
[2017-04-08] MEDS: BACITRACIN OINT 0.9 GM PACK TOP SCH (09:21)
[2017-04-08] MEDS: SKIN HEALING OINT (AQUAPHOR) 50 GM TUBE TOP SCH (09:21)
[2017-04-08] MEDS: SODIUM HYPOCHLORITE 0.25% IRRIG 473 ML BOTTLE TOP SCH (09:21)
--- NOTE | 2017-04-08 09:25 | Cardiology Progress Note ---
Marie Méndez April, RN, am scribing for, and in the presence of, Kvng Calderon MD 09:18. Assessment and Plan (1) Paroxysmal SVT (supraventricular tachycardia) Status: Acute Assessment and plan: He is currently in sinus rhythm. We will continue to monitor. He has not had any SVT now 36+ hours. Current Visit: Yes (2) Congestive heart failure Status: Acute Assessment and plan: This is based on BMP and some abnormalities his chest x-ray. He is on furosemide his BUN and creatinine are increasing indicative of possible overdiuresis or other underlying issue. He is complaining of shortness of breath today yet his lungs are clear and he does not appear tachypneic. Current Visit: Yes (3) Anemia Status: Chronic Assessment and plan: This appears stable at this time. Current Visit: Yes (4) CLL (chronic lymphocytic leukemia) Status: Chronic Assessment and plan: Is followed by Dr. Murry. Current Visit: Yes (5) Pneumonia Status: Acute Assessment and plan: He is on IV antibiotics. Current Visit: Yes (6) Renal failure Status: Acute Assessment and plan: He is having increasing BUN and creatinine. Current Visit: Yes Cardiology - PN: Subj Interval history: Mortgage Collector: Dr. Calderon (new) Oncologist: Dr. Murry SUMMARY: Mr. Paco Shaw is a 81 year old male who is never seen a quality control chemist in the past. He denies any known heart problems, he also denies having had a heart catheterization or stress testing done in the past. He is followed by Dr. Murry for chronic lymphocytic leukemia. He is a poor historian. He denies any surgical history, and he also denies any family history. He reports is a lifetime non-smoker. Mr. Antonio reports he has been short of breath with a nonproductive cough for about a week. He cannot tell me if the shortness of breath is at rest, with exertion, or both. He reports having occasional chest pain for the past week as well. He cannot describe the pain to me or tell me any triggers or alleviators. He says it hurts in the middle top part of his chest beneath his throat. He rates it a 6 or a 7 on a scale of 1-10. He reports she has been having some palpitations at home, but denies any since admission. He also complains of weakness for the last week or so. He presented to the emergency department [facility] in [place] for the symptoms. He was found to have an elevated troponin of 0.38 and pro BNP of 11,036. He was transferred to our facility for further evaluation. Troponin on arrival here was 0.415 recheck last night was 0.271. Kidney function has been elevated with BUN of 50 and creatinine 2.0. He denies any known history of kidney problems. BNP was 433. H&H was 7.9 and 24.3. 2 units of red blood cells were ordered, one unit has been transfused. Potassium was 2.8. EKG on arrival here with sinus rhythm and right bundle branch block, heart rate of 82. Chest x-ray suggested small bilateral pleural effusions with right basilar pneumonia and left basilar atelectasis. In the emergency department he was given Lasix IV as well as Lopressor 25 mg p.o. he was also given duo nebs treatments and has been started on IV antibiotics. During the night he had some runs of sinus tach but now with SVT with narrow complex QRS in the 140s. He denies having any palpitations or chest pain with these episodes. April 08, 2017: Mr. Antonio is seen resting in bed this morning. Oxygen is in use via nasal cannula. He says he feels he is somewhat short of breath. He denies any chest pain. States he generally does not feel well this morning. He had debridement ulcers on his right lower extremity, right ear, and nose yesterday by Dr. Toth. Dressings noted to these sites. cardiac monitor currently shows sinus rhythm with heart rates in the 80s. Blood pressures have been stable. His creatinine has increased, it is 3.0 this morning. He had a liver ultrasound this morning, those results are pending. Patient personally interviewed and examined and chart reviewed. I agree with the assessment as noted above have discussed this with Nidhi Salazar RN. His biggest complaint is feeling a little short of breath this morning but does not appear dyspneic. His O2 sat was as low as 92% earlier today. His examiner did not really reveal any acute changes pulmonary donald. His weights up some but is I&O's are not accurate. His H&H seems to be stable. His creatinine and BUN are elevated more. His rhythm remains sinus his heart rates are stable he has had no further SVT now at 36+ hours. We will check a chest x-ray. Exam (Progress Note) - Constitutional Vitals: Period Temp Pulse Resp BP Sys/Corcoran Pulse Ox Last 24 Hr 97.0 F-98.5 F 75-99 14-21 97-138/49-65 92-99 Exam: General appearance: Elderly man that appears to be his age, normal weight, no acute distress HEENT exam: normal inspection, atraumatic. He has bandage over his right nose and ear where there was previously noted skin lesion. Neck exam: normal inspection no JVD. No carotid bruit. Trachea is in midline Respiratory/lungs exam: clear to auscultation bilaterally good air movement. Cardiovascular exam: Regular rate and rhythm. No gross murmur. No precordial lift. Chest wall exam: nontender GI/Abdominal exam: He has a large inguinal hernia present. Normal bowel sounds , soft, nontender. Extremeties/musculoskeletal: Trace edema lower extremities. Bandaged wound right ankle. Neurological exam: alert, oriented X3, no focal deficits Psychiatric exam: normal affect, normal mood. Cognitive function is grossly normal. Skin exam: Bandages over skin lesions of his right nose and ear as well as right ankle that we have noted previously. Result/EKG - Labs CBC & BMP: 04/08/17 05:18 04/08/17 05:18 Lab Results: I have reviewed the past 24 hour labs Labs: Laboratory Results - last 24 hr 04/07/17 04/07/17 04/07/17 11:29 14:37 15:12 WBC 46.9 H* RBC 3.50 L Hgb 10.1 L Hct 30.7 L MCV 87.7 MCH 29 MCHC 32.9 RDW 17.1 Plt Count 236 MPV 9.5 L Neut % (Auto) 29.0 L Lymph % (Auto) 48.1 Rutherford % (Auto) 21.7 H Eos % (Auto) 0.0 Baso % (Auto) 0.2 Neut # (Auto) 13.6 H Lymph # (Auto) 22.6 H Rutherford # (Auto) 10.2 H Eos # (Auto) 0.0 Baso # (Auto) 0.1 Total Counted 100 Immature Gran % 1.0 Nucleated RBC % 0.0 Immature Gran # 0.48 Segmented Neutrophils 34 L Band Neutrophils Lymphocytes 64 H Monocytes 1 L Metamyelocytes 1 Nucleated RBCs # 0.00 Platelet Estimate Normal Polychromasia Few Hypochromasia 1+ Target Cells Ovalocytes Acanthocytes (Spur) Sodium Potassium Chloride Carbon Dioxide Anion Gap BUN Creatinine GFR Calculation BUN/Creatinine Ratio Glucose POC Glucose 180 H 149 H Calculated Osmolality Calcium Magnesium Total Bilirubin AST ALT Alkaline Phosphatase Total Protein Albumin Globulin Albumin/Globulin Ratio 04/07/17 04/08/17 04/08/17 19:58 05:18 05:18 WBC 45.2 H* RBC 3.34 L Hgb 9.5 L Hct 29.4 L MCV 88.0 MCH 28 MCHC 32.3 RDW 17.2 Plt Count 247 MPV 9.4 L Neut % (Auto) 28.5 L Lymph % (Auto) 51.5 Rutherford % (Auto) 18.6 H Eos % (Auto) 0.3 Baso % (Auto) 0.1 Neut # (Auto) 12.9 H Lymph # (Auto) 23.3 H Rutherford # (Auto) 8.4 H Eos # (Auto) 0.1 Baso # (Auto) 0.1 Total Counted 100 Immature Gran % 1.0 Nucleated RBC % 0.0 Immature Gran # 0.44 Segmented Neutrophils 29 L Band Neutrophils 5 Lymphocytes 45 Monocytes 21 H Metamyelocytes Nucleated RBCs # 0.00 Platelet Estimate Normal Polychromasia Hypochromasia 2+ Target Cells 1+ Ovalocytes 1+ Acanthocytes (Spur) Few Sodium 136 Potassium 4.9 Chloride 98 Carbon Dioxide 27 Anion Gap 15.9 H BUN 72 H Creatinine 3.00 H GFR Calculation 22 BUN/Creatinine Ratio 24.00 H Glucose 110 H POC Glucose 170 H Calculated Osmolality 293.0 Calcium 7.8 L Magnesium Total Bilirubin 1.90 H AST 26 ALT 17 Alkaline Phosphatase 142 H Total Protein 5.5 L Albumin 1.2 L Globulin 4.3 H Albumin/Globulin Ratio 0.2 L 04/08/17 05:18 WBC RBC Hgb Hct MCV MCH MCHC RDW Plt Count MPV Neut % (Auto) Lymph % (Auto) Rutherford % (Auto) Eos % (Auto) Baso % (Auto) Neut # (Auto) Lymph # (Auto) Rutherford # (Auto) Eos # (Auto) Baso # (Auto) Total Counted Immature Gran % Nucleated RBC % Immature Gran # Segmented Neutrophils Band Neutrophils Lymphocytes Monocytes Metamyelocytes Nucleated RBCs # Platelet Estimate Polychromasia Hypochromasia Target Cells Ovalocytes Acanthocytes (Spur) Sodium Potassium Chloride Carbon Dioxide Anion Gap BUN Creatinine GFR Calculation BUN/Creatinine Ratio Glucose POC Glucose Calculated Osmolality Calcium Magnesium 2.8 H Total Bilirubin AST ALT Alkaline Phosphatase Total Protein Albumin Globulin Albumin/Globulin Ratio - Impressions Impressions: Telemetry was sinus rhythm without any issues of SVT and 36+ hours. - EKG EKG results: interpreted by me EKG shows: sinus rhythm Quality Measures - VTE Contraindication to Pharmacological VTE Prophylaxis: High Risk of Bleeding IKvng John Timothy, MD, personally performed the services described in this documentation, ascribed by Nidhi Salazar RN in my presence, and it is both accurate and complete [id number] .
[2017-04-08] MEDS: INSULIN REGULAR 100 UNIT/ML SUBCUT SCH ×3 (09:28→16:24)
[2017-04-08] MEDS: POTASSIUM CHLORIDE 20 MEQ TABLET PO SCH ×2 (09:30→21:32)
--- NOTE | 2017-04-08 10:13 | Nephrology Progress Note ---
Nephrology - PN: Subj Interval history: He denies shortness of breath or pain. Exam (PN)-Nephrology - Vital Signs Vital signs: Period Temp Pulse Resp BP Sys/Corcoran Pulse Ox Last 24 Hr 97.0 F-98.5 F 75-99 14-21 97-138/49-65 92-99 Exam: ENT: Normal Cardiovascular: Regular rate and rhythm. No murmur rub or gallop Lungs: Clear Extremities: No edema - Lab 04/08/17 05:18 04/08/17 05:18 Most recent lab results Calcium 7.8 MG/DL (8.5-10.1) L 04/08/17 05:18 Phosphorus 2.5 MG/DL (2.5-4.9) 04/06/17 05:46 Magnesium 2.8 MG/DL (1.8-2.4) H 04/08/17 05:18 Assessment and Plan (1) Chronic kidney disease, stage III (moderate) Status: Acute Assessment and plan: 81-year-old man admitted with: * CLL. Followed by Dr. Murry * Pneumonia, right lower lobe. Continue Levaquin. He has small bilateral pleural effusions. Albumin is quite low at 1.6.. Ejection fraction normal * Renal failure. Renal function has declined since yesterday. Fluid balance has been negative. Diuretic will be discontinued * Cellulitis, right leg. Status post debridement * Paroxysmal SVT Current Visit: Yes (2) Cellulitis and abscess of left lower extremity Status: Acute Current Visit: Yes (3) Hypokalemia Status: Acute Current Visit: Yes (4) Leukocytosis Status: Acute Current Visit: Yes (5) Paroxysmal SVT (supraventricular tachycardia) Status: Acute Current Visit: Yes (6) Pneumonia Status: Acute Current Visit: Yes (7) CLL (chronic lymphocytic leukemia) Status: Chronic Current Visit: Yes
--- NOTE | 2017-04-08 10:24 | XRay Report ---
Exam: XR chest 1V portable Date: 04/08/2017 9:24 AM Indication: Shortness of breath Comparison: 04/06/2017 Technical: AP Findings: Worsening radiographic findings are present with an area of pneumonic infiltrate or consolidation suspected in the right base. Atelectatic changes are also suspected in the left perihilar region infrahilar area. Lateral marginal osteophytes are present. External cardiac leads oxygen tubing are present. Abdominal ileus pattern is present. The heart is normal in size. Impression: 1. Right basilar pneumonic infiltrate with left basilar atelectasis. Findings appear similar to 04/03/2017 in the right base but appear worse when compared to prior study of 04/06. Low volume effusions are suspected bilaterally 2. Atelectatic change left base. PROCEDURE INTERPRETED AT [facility] DEPARTMENT OF RADIOLOGY Final Report Signed by: Dr. Hudson Davies
--- NOTE | 2017-04-08 10:39 | Oncology Progress Note ---
Oncology Subjective PN Interval history: Skin biopsy results are pending. The patient continues to be anemic. I would transfuse him if his hemoglobin drops below 9.0. He has chronic lymphocytic leukemia that does not require treatment presently. I will check back on Tuesday. Call the answering service, if he needs to be seen by the on-call physician covering for me. Exam - Constitutional Vitals: Period Temp Pulse Resp BP Sys/Corcoran Pulse Ox Last 24 Hr 97.0 F-98.5 F 75-99 14-21 97-138/49-65 92-99 Results - Labs CBC & BMP: 04/08/17 05:18 04/08/17 05:18 Quality Measures - VTE Contraindication to Pharmacological VTE Prophylaxis: High Risk of Bleeding
[2017-04-08] MEDS: SODIUM CHLORIDE 0.9% 1,000 ML IV SCH ×2 (12:10→20:10)
--- NOTE | 2017-04-08 12:13 | Infectious Disease Consult ---
Assessment and Plan (1) Abscess of right external ear Status: Acute Assessment and plan: Gram-positive cocci growing. Other cultures with gram-positive cocci were methicillin sensitive organisms. Recommendations: He will be on ceftriaxone for reasons explained below. Continue local wound care Current Visit: Yes (2) Cellulitis and abscess of left lower extremity Status: Acute Assessment and plan: I was unable to look at these wounds today but it seems this similar to the lesion has still on the undersurface of his scrotum. MSScapitis and MSSE were cultured and he will be on ceftriaxone for this. I discontinue the Zosyn. It will be interesting to see the results of the histopathology; it may be that these lesions are malignant. Current Visit: Yes (3) Chronic kidney disease, stage III (moderate) Status: Acute Current Visit: Yes (4) Inguinal hernia Status: Acute Current Visit: Yes Qualifiers: Laterality: unspecified laterality Recurrence: non-recurrent (5) Pneumonia Status: Acute Assessment and plan: Community-acquired pneumonia. Infiltrate improved since admission. Recommendations: 1. I de-escalate from Zosyn to ceftriaxone 2. Continue levofloxacin Thank you very much for the consult. Will follow. Current Visit: Yes (6) CLL (chronic lymphocytic leukemia) Status: Chronic Current Visit: Yes History of Present Illness Chief complaint: Pneumonia, abscess History of present illness: History obtained from the chart as patient was a very poor historian, he mainly groaned. Mr. Antnoio is a 81 year old male who was brought to the hospital 5 days ago because of shortness of breath. He was diagnosed with right lower lobe pneumonia and has been on empiric antibiotic therapy including Zosyn and levofloxacin and fluconazole. Patient had a lesion at the front of the right area which evolved into an abscess. He also had some ulcerations on both legs which developed in hospital and have worsened. He was taken for I&D yesterday. Today a macerated lesion was noted to the undersurface of the scrotum on the left side. I am asked to assist with management. He has not had any fever. Home Medications Medication Instructions Recorded Confirmed Type Aspirin/Caffeine [Bc Powder Packet] 1 each PO BID 04/03/17 04/03/17 History Multivit-Min36/Iron/Folic Acid 1 each PO QAM 04/03/17 04/03/17 History [Geritol Complete Tablet] Allergies Allergy/AdvReac Type Severity Reaction Status Date / Time No Known Allergies Allergy Verified 04/03/17 14:01 ROS unobtainable: due to mental status Medical,Surgical,& Family Hx - Medical History Gastrointestinal: History of: GI Problems (large inguinal hernia) Hematology: History of: Blood Disorders Other: History of: Miscellaneous Medical Problems (leukemia) - Family History Family History: Denies;: Family Anesthesia Reaction, Family Cancer, Family Diabetes, Family Heart Disease, Family Hematology, Family Hypertension, Family Psychiatric Problems, Family Stroke, Additional Family History - Social History Smoking Status: Never smoker Frequency of Alcohol Use: Rarely Type of Drug Use: None Infectious Disease Exam H&P - Constitutional Vitals: Vital Signs Temp Pulse Resp BP Pulse Ox 97.2 F L 84 20 126/60 94 L 04/08/17 08:00 04/08/17 08:00 04/08/17 08:00 04/08/17 08:00 04/08/17 08:00 Intake and Output 04/07/17 04/08/17 04/08/17 23:59 07:59 15:59 Intake Total 820 / 820 170 / 170 Balance 820 / 820 170 / 170 Intake: IV 400 / 400 50 / 50 Levaquin Inj 750 mg In 150 / 150 Premix 1 Each @ 100 mls/ hr IV Q48H [facility] Rx#: [id number] Zosyn 3,375 mg In Ns 100 200 / 200 0 / 0 ml @ 25 mls/hr IV Q8H BEBE Rx#:[id number] Ancef 2,000 mg In Premix 50 / 50 50 / 50 1 Each @ 100 mls/hr IV Q8H BEBE Rx#:[id number] Oral 420 / 420 120 / 120 Other: Voiding Method Incontinent Incontinent # Voids 4 3 # Bowel Movements 0 0 Weight 82.554 kg Patient Weight 04/08/17 23:59 Weight 82.554 kg Exam: General: Patient chronically ill looking HEENT: Mucous membranes pink and moist, anicteric acyanotic, JOSETTE, no oropharyngeal exudates however he has poor dentition and there is some inflammation of his gums with ulceration and some areas Neck: Supple, no thyroid gland enlargement Respiratory system: Breath sounds vesicular, no crepitations or wheezes Cardiovascular: Normal S1 and S2, no murmurs appreciated Abdomen: Normal bowel sounds, soft nontender throughout, no organomegaly or mass Genitourinary: No suprapubic pain or bladder distention, very large scrotal hernia noted. There is ulceration and maceration involving a large area to the undersurface of the left side of the scrotum. The tissues look necrotic and it seems this is spreading. Patient has shallow ulceration to the perianal area Extremities: no edema obvious, both legs bandaged with him having had debridement surgery yesterday Skin: No rash, packed ulcer to anterior aspect of right tragus Reports - Labs CBC & BMP: 04/08/17 05:18 04/08/17 05:18 Labs: Laboratory Results - last 24 hr 04/07/17 04/07/17 04/07/17 14:37 15:12 19:58 WBC 46.9 H* RBC 3.50 L Hgb 10.1 L Hct 30.7 L MCV 87.7 MCH 29 MCHC 32.9 RDW 17.1 Plt Count 236 MPV 9.5 L Neut % (Auto) 29.0 L Lymph % (Auto) 48.1 Whitley % (Auto) 21.7 H Eos % (Auto) 0.0 Baso % (Auto) 0.2 Neut # (Auto) 13.6 H Lymph # (Auto) 22.6 H Whitley # (Auto) 10.2 H Eos # (Auto) 0.0 Baso # (Auto) 0.1 Total Counted 100 Immature Gran % 1.0 Nucleated RBC % 0.0 Immature Gran # 0.48 Segmented Neutrophils 34 L Band Neutrophils Lymphocytes 64 H Monocytes 1 L Metamyelocytes 1 Nucleated RBCs # 0.00 Platelet Estimate Normal Polychromasia Few Hypochromasia 1+ Target Cells Ovalocytes Acanthocytes (Spur) Sodium Potassium Chloride Carbon Dioxide Anion Gap BUN Creatinine GFR Calculation BUN/Creatinine Ratio Glucose POC Glucose 149 H 170 H Calculated Osmolality Calcium Magnesium Total Bilirubin AST ALT Alkaline Phosphatase Total Protein Albumin Globulin Albumin/Globulin Ratio 04/08/17 04/08/17 04/08/17 05:18 05:18 05:18 WBC 45.2 H* RBC 3.34 L Hgb 9.5 L Hct 29.4 L MCV 88.0 MCH 28 MCHC 32.3 RDW 17.2 Plt Count 247 MPV 9.4 L Neut % (Auto) 28.5 L Lymph % (Auto) 51.5 Whitley % (Auto) 18.6 H Eos % (Auto) 0.3 Baso % (Auto) 0.1 Neut # (Auto) 12.9 H Lymph # (Auto) 23.3 H Whitley # (Auto) 8.4 H Eos # (Auto) 0.1 Baso # (Auto) 0.1 Total Counted 100 Immature Gran % 1.0 Nucleated RBC % 0.0 Immature Gran # 0.44 Segmented Neutrophils 29 L Band Neutrophils 5 Lymphocytes 45 Monocytes 21 H Metamyelocytes Nucleated RBCs # 0.00 Platelet Estimate Normal Polychromasia Hypochromasia 2+ Target Cells 1+ Ovalocytes 1+ Acanthocytes (Spur) Few Sodium 136 Potassium 4.9 Chloride 98 Carbon Dioxide 27 Anion Gap 15.9 H BUN 72 H Creatinine 3.00 H GFR Calculation 22 BUN/Creatinine Ratio 24.00 H Glucose 110 H POC Glucose Calculated Osmolality 293.0 Calcium 7.8 L Magnesium 2.8 H Total Bilirubin 1.90 H AST 26 ALT 17 Alkaline Phosphatase 142 H Total Protein 5.5 L Albumin 1.2 L Globulin 4.3 H Albumin/Globulin Ratio 0.2 L 04/08/17 11:06 WBC RBC Hgb Hct MCV MCH MCHC RDW Plt Count MPV Neut % (Auto) Lymph % (Auto) Whitley % (Auto) Eos % (Auto) Baso % (Auto) Neut # (Auto) Lymph # (Auto) Whitley # (Auto) Eos # (Auto) Baso # (Auto) Total Counted Immature Gran % Nucleated RBC % Immature Gran # Segmented Neutrophils Band Neutrophils Lymphocytes Monocytes Metamyelocytes Nucleated RBCs # Platelet Estimate Polychromasia Hypochromasia Target Cells Ovalocytes Acanthocytes (Spur) Sodium Potassium Chloride Carbon Dioxide Anion Gap BUN Creatinine GFR Calculation BUN/Creatinine Ratio Glucose POC Glucose 151 H Calculated Osmolality Calcium Magnesium Total Bilirubin AST ALT Alkaline Phosphatase Total Protein Albumin Globulin Albumin/Globulin Ratio - Reports Microbiology: Microbiology 04/05/17 09:40 Wound Culture - Final Ankle - Right Staphylococcus capitis ss capi Staphylococcus epidermidis 04/07/17 10:20 Abscess Culture - Preliminary Leg - Right No growth at 24 hours 04/07/17 10:30 Abscess Culture - Preliminary Ankle - Right No Growth at 24 hours. 04/07/17 10:30 Tissue Culture - Preliminary Ear - Right Gram Positive Cocci Gram Stain - Final 04/07/17 10:30 Tissue Culture - Preliminary Ankle - Right No growth at 24 hours Gram Stain - Final - Diagnostic Findings Procedure: Chest x-ray: image reviewed by me, report reviewed by me (Right lung base consolidation improved since admission)
--- NOTE | 2017-04-08 12:58 | General Surgery Progress Note ---
Assessment and Plan - Time spent with patient Time spent with patient: Less than 30 minutes (1) Cellulitis and abscess of left lower extremity Status: Acute Assessment and plan: Impression: Ecchymotic versus necrotic area of the right ankle laterally possibly due to trauma without clear abscess formation. Plan: Moisturize well with protective dressings see how this responds. We will try to avoid any extensive debridement since it would be difficult area to heal up or even the skin graft. 04/06/2017. The area on the ankle on the right has failed to improve actually looks worse today. At this point I do not know of anything else to do but to try out clean this up as best we can get some biopsies and try to find out what process is going on here to create this and see if we can somehow risk to progress. Similarly on the 2 new areas on the medial aspect of the right leg changes to show some problems also. Do not know what we are to go with this at this point time but we need to get some information find exactly what we are dealing with. Will take to surgery for some debridement. 04/08/2017. Wounds of the leg are large and we start wound care on them at this time. The only good news is fact we do not see any progression at the skin edges at this time at this process and now. Current Visit: Yes (2) Abscess of right external ear Status: Acute Assessment and plan: Impression: Abscess right ear Plan once he seems to be stable cardiac donald and electrolyte was considered an incision and drainage with a little bit of debridement of this area for cultures as well as treatment. 04/06/2017. Area about the right ear and cheek area is no better still some erythematous changes present. We go ahead and get this debrided opened and drained cultured well so that we can understand what we are dealing with this side also. 04/08/2017 Wound of the right ear looks good there is no progression of yet and is fairly clean with a good clean base at this time. Current Visit: Yes (3) CLL (chronic lymphocytic leukemia) Status: Chronic Assessment and plan: Impression: Chronic lymphocytic leukemia Plan: Managed by oncology Current Visit: Yes (4) Inguinal hernia Status: Acute Assessment and plan: Impression: Large inguinal hernia incarcerated with bowel without obstruction. Plan: Observation 04/08/2017 Patient has this large scrotal mass that has been there for many years this ulcer on the underside of the scrotum on the left side looks like it is a little bit worse with some progression at this time. It appears is going require some debridement and I will set him up for surgery on Tuesday to see if we can get this cleaned up and under control at this time. Current Visit: Yes Qualifiers: Laterality: unspecified laterality Recurrence: non-recurrent Subjective Patient reports: Present: feels better, afebrile Exam - Constitutional Vitals: Period Temp Pulse Resp BP Sys/Corcoran Pulse Ox Last 24 Hr 97.0 F-98.4 F 75-92 16-21 97-138/54-64 92-99 General appearance: mild distress - Head Head exam: Present: normal inspection - ENT ENT exam: Present: normal exam - Neck Neck exam: Present: normal inspection - Respiratory Respiratory exam: Present: clear to auscultation bilaterally, rales - Cardiovascular Cardiovascular exam: Present: RRR - GI/Abdominal GI/Abdominal exam: Present: hypoactive bowel sounds, hernia (Large scrotal hernia unfortunately with some progressive superficial necrosis on the posterior aspect on the left), soft - Extremities Exam Extremities exam: Present: other (Wounds of the right leg seem to be stable there are large and are starting wound care at this time but do not see any progression at the edges of the wound at this time.) - Back Exam Back exam: Present: normal inspection - Neurological Exam Neurological exam: Present: alert, oriented X3, CN II-XII intact - Skin Skin exam: Present: normal color, warm, dry Results - Labs CBC & BMP: 04/08/17 05:18 04/08/17 05:18 Lab Results: I have reviewed the past 24 hour labs Quality Measures - VTE Contraindication to Pharmacological VTE Prophylaxis: High Risk of Bleeding Specialty Discharge - Follow Up or Referrals Follow up with: Herminio Rowe MD [Physician] - (Melody from Dr. Herminio Lpoez office will call the patient with appt)
--- NOTE | 2017-04-08 14:34 | Hospitalist Progress Note ---
Assessment and Plan (1) Pneumonia Status: Acute Current Visit: Yes (2) Anemia Status: Chronic Current Visit: Yes (3) CLL (chronic lymphocytic leukemia) Status: Chronic Assessment and plan: At this time no therapy per Dr. Murry. Continuing to monitor. Current Visit: Yes (4) Congestive heart failure Status: Acute Current Visit: Yes (5) Renal failure Status: Acute Assessment and plan: Appears to be acute on chronic renal failure. Current Visit: Yes Qualifiers: Chronic kidney disease stage: stage 3 (moderate) (6) Leukocytosis Status: Acute Assessment and plan: Continue leukocytosis. CBC BMP in a.m. Current Visit: Yes (7) Paroxysmal SVT (supraventricular tachycardia) Status: Acute Assessment and plan: No further SVT changes in the last shift. Current Visit: Yes Hospitalist: Subjective Interval history: Patient's condition is about the same. Family members at the bedside. He did have an abdominal ultrasound on yesterday that showed evidence of gallstone. Serum creatinine is been 3.0. Moreover, patient has been evaluated by Dr. Murry regarding CLL and at this time there will be no therapy. She had a wound debridement by Dr. Toth on yesterday. Exam - Constitutional Vitals: Period Temp Pulse Resp BP Sys/Corcoran Pulse Ox Last 24 Hr 97.0 F-97.9 F 75-90 16-21 97-138/54-64 92-99 General appearance: other - Respiratory Respiratory exam: Present: clear to auscultation bilaterally (Debilitated) - Cardiovascular Cardiovascular exam: Present: regular rate and rhythm - GI/Abdominal GI/Abdominal exam: Present: normal bowel sounds - Neurological Exam Neurological exam: Present: alert - Psychiatric Psychiatric exam: Present: normal affect Results - Labs CBC & BMP: 04/08/17 05:18 04/08/17 05:18 Quality Measures - VTE Contraindication to Pharmacological VTE Prophylaxis: High Risk of Bleeding Specialty Discharge - Follow Up or Referrals Follow up with: Herminio Rowe MD [Physician] - (Melody from Dr. Herminio Lopez office will call the patient with appt)
[2017-04-08] MEDS: cefTRIAXone 1,000 MG in SODIUM CHLORIDE 0.9% 100 ML IV SCH (15:04)
--- NOTE | 2017-04-08 19:26 | Pathology Report from [facility] ---
[facility] ACCESSION # : [id number] PATIENT NAME : Jr. Contreras Charles ORDERING DR : YAZAN BHANDARI MD CLINICAL HX: Abscess right ear/lower leg POST-OP DX: Same SPECIMEN INFO: #1 Right preauricular tissue #2 Right nose tissue #3 Right medial leg wound #4 Right lateral ankle tissue GROSS DESCRIPTION: Received in formalin in four parts labeled:#1 NALINI CONTRERAS JR & R PREAURICULAR TISSUE #1 is a 0.9 x 0.5 cm pink fiore tissue fragment sectioned and submitted in #1.#2 NALINI CONTRERAS JR & R NOSE TISSUE #2 are fragments of pink fiore tissue measuring collectively 1.8 x 0.4 cm submitted in # 2.#3 NALINI CONTRERAS JR & R MEDIAL LEG #3 is a 4.3 x 6.5 cm hyperemic fragment of tissue. Compounder Helper sections submitted in #3.#4 NALINI CONTRERAS JR & R LATERAL ANKLE TISSUE #4 is a 14.7 x 1.2 cm fragments of pink white debrided tissue. Compounder Helper sections are submitted in cassette #4. DIAGNOSIS FOR NALINI CONTRERAS JR.: #1 SKIN OF RIGHT PREAURICULAR, BIOPSY: Skin with ulceration and abscess formation that extends to involve the underlying panniculus.#2 SKIN OF RIGHT NOSE, BIOPSY: Skin with reactive changes and underlying abscess formation. #3 SKIN OF RIGHT MEDIAL LEG, EXCISION: Skin with underlying abscess formation, predominately within the panniculus and deep tissue.#4 SKIN OF RIGHT LATERAL ANKLE, EXCISION: Skin with underlying abscess formation, predominately within the panniculus and deep tissue. AFB and GMS special stains with appropriate controls are negative. Note: Tissue from sites biopsied above show similar findings with a predominately deep, acute inflammatory infiltrate. Specimen #1 also contains superficial acute inflammation. The patients history of chronic lymphocytic leukemia (CLL) is noted and a paraneoplastic syndrome should be considered, including Pyoderma Gangrenosum. A malignant lymphoid infiltrate is NOT appreciated. Other considerations include underlying hypercoaguable or thrombotic processes but are less favored as vascular thrombi are NOT appreciated. COLLECTED DATE: 04/07/2017 [facility] REPORT DATE: 04/08/2017 ELECTRONICALLY SIGNED BY: Cinda Lubin M.D. 04/08/2017 - 15:03:24 [facility]
[2017-04-09] MEDS: INSULIN REGULAR 100 UNIT/ML SUBCUT SCH ×4 (00:37→16:38)
[2017-04-09] MEDS: oxyCODONE/ACETAMINOPHEN 5-325 MG TABLET PO PRN (03:19)
[2017-04-09] MEDS: HYDROmorphone 2 MG/1 ML VIAL IV PRN ×2 (04:21→19:16)
[2017-04-09 05:05] LABS: Basophils # 0.1 10*3/uL (0.0-0.2); Basophils % 0.2 % (0.0-0.8); Eosinophils # 0.2 10*3/uL (0.0-0.87); Eosinophils % 0.3 % (0.00-10.9); Hematocrit 30.3 VOL% (42.0-52.0); Hemoglobin 9.7 GM/DL (14.0-18.0); Immature Granulocytes % 0.6 %; Immature Granulocytes Absolute 0.28 #; Lymphocytes # 25.2 10*3/uL (1.4-4.0); Lymphocytes % 50.6 % (21.2-54.2); Mean Corpuscular Hemoglobin 28 PG (27-34); Mean Corpuscular Volume 88.3 FL (87-102); Mean Platelet Volume 9.5 FL (9.6-12.0); Monocytes # 11.9 10*3/uL (0.11-0.8); Neutrophils # 12.1 10*3/uL (1.4-7.4); Neutrophils % 24.3 % (38.7-73.9); Platelet Count 294 T/CUMM (130-400); Red Blood Count 3.43 MC/CUMM (3.8-5.5); Red Cell Distribution Width 17.8 % (9.3-17.3)
[2017-04-09] MEDS: ALBUTEROL/IPRATROPIUM 3 ML NEB RESP TX SCH ×6 (05:34→20:33)
[2017-04-09 05:38] LABS: White Blood Count 49.8 T/CUMM (4-12)
[2017-04-09 05:41] LABS: Calcium 7.9 MG/DL (8.5-10.1); Osmolality,Calculated 291.4 MOS/KG (273-304); Potassium 5.4 MMOL/L (3.5-5.1)
[2017-04-09 06:17] LABS: Band Neutrophils 1 % (0-10); Eosinophils 1 % (0-10); Hypochromasia 1+; Lymphocytes 61 % (20-55); Microcytosis 1+; Ovalocytes Slight; Segmented Neutrophils 35 % (50-85); Total Cells Counted 100
[2017-04-09 06:18] LABS: Smudge Cells Few
--- NOTE | 2017-04-09 08:30 | General Surgery Progress Note ---
Assessment and Plan (1) Scrotal ulcer Status: Acute Assessment and plan: Debridement planned for Tuesday. Current Visit: Yes Subjective Patient reports: Present: no new complaints Exam - Constitutional Vitals: Period Temp Pulse Resp BP Sys/Corcoran Pulse Ox Last 24 Hr 97.1 F-98.1 F 73-86 16-22 108-132/51-67 94-99 - Extremities Exam Extremities exam: Present: other (Right lower extremity and right facial ulcers appear clean and healthy. Scrotum has some soupy drainage.) Results - Labs CBC & BMP: 04/09/17 04:22 04/09/17 04:22 Quality Measures - VTE Contraindication to Pharmacological VTE Prophylaxis: High Risk of Bleeding Specialty Discharge - Follow Up or Referrals Follow up with: Herminio Rowe MD [Physician] - (Melody from Dr. Herminio Lopez office will call the patient with appt)
--- NOTE | 2017-04-09 08:30 | CT Report ---
CT abdomen pelvis wo con Indication: Scrotal hernia. CT ABDOMEN AND PELVIS WITHOUT CONTRAST DLP: 994 mGy*cm. One or more of the following dose reduction techniques was used: Automated exposure control, adjustment of the mA and/or kV according the patient size, or use of iterative reconstruction techniques. Comparison: None. Technique: Axial noncontrast CT images of the abdomen and pelvis were obtained. Oral contrast was given. Abdomen: Alveolar opacification posterior left lung base is present. Right lung base is only partially included on the exam. Heart appears to be minimally enlarged. There is calcified atheromatous disease present. Calcified gallstones noted. Unenhanced liver, spleen, pancreas and adrenal glands within normal limits. No bowel obstruction evident with contrast filling the stomach, distal esophagus and proximal small bowel. Visualized small bowel is nondilated. Anasarca noted. Pelvis: Urinary bladder is markedly distended. Bilateral large inguinal hernias are present with multiple loops of bowel projecting both hernia sacs. The right is larger than the left extending well into the scrotum. Rectosigmoid colon is decompressed. Osteopenia and degenerative changes throughout the thoracolumbar spine noted. 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 Impression: 1. Large bilateral inguinal hernias with bowel extending well into the scrotum on the right. The downstream colon, rectosigmoid segment, is decompressed but upstream, no significant dilatation is shown. Doubt the hernias are strangulated. 2. Left basilar pneumonia and/or atelectasis. 3. Calcified gallstones. 4. Marked distention of the urinary bladder. PROCEDURE INTERPRETED AT [facility] DEPARTMENT OF RADIOLOGY Final Report Signed by: Kvng Deal M.D.
[2017-04-09] MEDS: SKIN HEALING OINT (AQUAPHOR) 50 GM TUBE TOP SCH (09:17)
[2017-04-09] MEDS: FLUCONAZOLE 100 MG TABLET PO SCH (09:17)
[2017-04-09] MEDS: PANTOPRAZOLE 40 MG TABLET PO SCH (09:17)
[2017-04-09] MEDS: SODIUM HYPOCHLORITE 0.25% IRRIG 473 ML BOTTLE TOP SCH (09:17)
[2017-04-09] MEDS: BACITRACIN OINT 0.9 GM PACK TOP SCH (09:17)
[2017-04-09] MEDS: METOPROLOL TARTRATE 50 MG TABLET PO SCH ×2 (09:17→20:30)
[2017-04-09] MEDS: MULTIVITAMIN (CENTRUM) TABLET PO SCH (09:17)
[2017-04-09] MEDS: POTASSIUM CHLORIDE 20 MEQ TABLET PO SCH (09:22)
[2017-04-09] MEDS: GENTAMICIN 0.1% OINT 15 GM TUBE TOP SCH ×3 (09:30→20:32)
--- NOTE | 2017-04-09 09:46 | Cardiology Progress Note ---
Assessment and Plan (1) Paroxysmal SVT (supraventricular tachycardia) Status: Acute Assessment and plan: Impression this is stable on present medications. Current Visit: Yes (2) Congestive heart failure Status: Chronic Assessment and plan: This is based on BMP and some abnormalities his chest x-ray. He may not actually have a source of heart failure from the heart. Current Visit: Yes (3) Anemia Status: Chronic Assessment and plan: This appears stable at this time. Current Visit: Yes (4) CLL (chronic lymphocytic leukemia) Status: Chronic Assessment and plan: Is followed by Dr. Murry. Current Visit: Yes (5) Pneumonia Status: Acute Assessment and plan: He is on IV antibiotics. Current Visit: Yes (6) Renal failure Status: Acute Assessment and plan: He is having increasing BUN and creatinine. Current Visit: Yes Qualifiers: Chronic kidney disease stage: stage 3 (moderate) (7) Electrolyte abnormality Status: Acute Assessment and plan: This is prior related to multiple issues including sinus medications but also present medical and clinical condition. Current Visit: Yes Cardiology - PN: Subj Interval history: SUMMARY: Mr. Paco Shaw is a 81 year old male who is never seen a luggage liner in the past. He denies any known heart problems, he also denies having had a heart catheterization or stress testing done in the past. He is followed by Dr. Murry for chronic lymphocytic leukemia. He is a poor historian. He denies any surgical history, and he also denies any family history. He reports is a lifetime non-smoker. Mr. Antonio reports he has been short of breath with a nonproductive cough for about a week. He cannot tell me if the shortness of breath is at rest, with exertion, or both. He reports having occasional chest pain for the past week as well. He cannot describe the pain to me or tell me any triggers or alleviators. He says it hurts in the middle top part of his chest beneath his throat. He rates it a 6 or a 7 on a scale of 1-10. He reports she has been having some palpitations at home, but denies any since admission. He also complains of weakness for the last week or so. He presented to the emergency department [facility] in [place] for the symptoms. He was found to have an elevated troponin of 0.38 and pro BNP of 11,036. He was transferred to our facility for further evaluation. Troponin on arrival here was 0.415 recheck last night was 0.271. Kidney function has been elevated with BUN of 50 and creatinine 2.0. He denies any known history of kidney problems. BNP was 433. H&H was 7.9 and 24.3. 2 units of red blood cells were ordered, one unit has been transfused. Potassium was 2.8. EKG on arrival here with sinus rhythm and right bundle branch block, heart rate of 82. Chest x-ray suggested small bilateral pleural effusions with right basilar pneumonia and left basilar atelectasis. In the emergency department he was given Lasix IV as well as Lopressor 25 mg p.o. he was also given duo nebs treatments and has been started on IV antibiotics. During the night he had some runs of sinus tach but now with SVT with narrow complex QRS in the 140s. He denies having any palpitations or chest pain with these episodes. 04/09/2017: Patient last 24 hours doing well. He continues to have normal sinus rhythm without any breakthrough SVT and actually 2+ days. I think is doing well with a beta-johnathon which we will continue. He is not having any chest pain or shortness of breath or other cardiac symptomatology. He is post op debridement of his wounds. His laboratory data still elevated white count left shift. His H&H is stable. His potassium is up to 5.4. His creatinine though is at 3.6 and BUN of 86. Magnesium is also up to 3.0. Patient is on any potassium or magnesium replacement. No diuretics. Is not clear why his potassium and magnesium is up. Certainly he has increasing BUN/creatinine may be associated with this. He is receiving IV fluid. Exam (Progress Note) - Constitutional Vitals: Period Temp Pulse Resp BP Sys/Corcoran Pulse Ox Last 24 Hr 97.1 F-98.1 F 73-86 16-22 108-132/51-67 94-99 Exam: General appearance: Elderly man that appears to be his age, normal weight, no acute distress lying in bed. HEENT exam: normal inspection, atraumatic. He has bandage over his right nose and ear where there was previously noted skin lesion and is postop. Neck exam: normal inspection no JVD. No carotid bruit. Trachea is in midline Respiratory/lungs exam: clear to auscultation bilaterally and anteriorly good air movement. Cardiovascular exam: Regular rate and rhythm. No gross murmur. No precordial lift. Chest wall exam: nontender GI/Abdominal exam: He has a large inguinal hernia present. Normal bowel sounds , soft, nontender. Extremeties/musculoskeletal: Trace edema lower extremities. Bandaged wound right ankle. Neurological exam: alert, oriented X3, no focal deficits Psychiatric exam: normal affect, normal mood. Cognitive function is grossly normal. Skin exam: Bandages over skin lesions of his right nose and ear as well as right ankle that we have noted previously. Result/EKG - Labs CBC & BMP: 04/09/17 04:22 04/09/17 04:22 Lab Results: I have reviewed the past 24 hour labs (His white count remains elevated and his H&H remained stable but low. Potassium magnesium up as is to be in creatinine. Sodium is little low today.) Labs: Laboratory Results - last 24 hr 04/08/17 04/08/17 04/08/17 11:06 15:50 22:14 WBC RBC Hgb Hct MCV MCH MCHC RDW Plt Count MPV Neut % (Auto) Lymph % (Auto) [place] % (Auto) Eos % (Auto) Baso % (Auto) Neut # (Auto) Lymph # (Auto) [place] # (Auto) Eos # (Auto) Baso # (Auto) Total Counted Immature Gran % Nucleated RBC % Immature Gran # Segmented Neutrophils Band Neutrophils Lymphocytes Monocytes Eosinophils Nucleated RBCs # Smudge Cells Hypochromasia Microcytosis Ovalocytes Morphology Comment Sodium Potassium Chloride Carbon Dioxide Anion Gap BUN Creatinine GFR Calculation BUN/Creatinine Ratio Glucose POC Glucose 151 H 132 H 92 Calculated Osmolality Calcium Magnesium 04/09/17 04/09/17 04/09/17 04:22 04:22 07:16 WBC 49.8 H* RBC 3.43 L Hgb 9.7 L Hct 30.3 L MCV 88.3 MCH 28 MCHC 32.0 RDW 17.8 H Plt Count 294 MPV 9.5 L Neut % (Auto) 24.3 L Lymph % (Auto) 50.6 [place] % (Auto) 24.0 H Eos % (Auto) 0.3 Baso % (Auto) 0.2 Neut # (Auto) 12.1 H Lymph # (Auto) 25.2 H [place] # (Auto) 11.9 H Eos # (Auto) 0.2 Baso # (Auto) 0.1 Total Counted 100 Immature Gran % 0.6 Nucleated RBC % 0.0 Immature Gran # 0.28 Segmented Neutrophils 35 L Band Neutrophils 1 Lymphocytes 61 H Monocytes 2 Eosinophils 1 Nucleated RBCs # 0.00 Smudge Cells Few Hypochromasia 1+ Microcytosis 1+ Ovalocytes Slight Morphology Comment Sodium 133 L Potassium 5.4 H Chloride 97 L Carbon Dioxide 25 Anion Gap 16.4 H BUN 86 H D Creatinine 3.60 H GFR Calculation 18 BUN/Creatinine Ratio 23.00 H Glucose 99 POC Glucose 117 H Calculated Osmolality 291.4 Calcium 7.9 L Magnesium 3.0 H - Impressions Impressions: Telemetry normal sinus rhythm with occasional PAC. For 2+ states he has not had any further SVT. Quality Measures - VTE Contraindication to Pharmacological VTE Prophylaxis: High Risk of Bleeding Specialty Discharge - Follow Up or Referrals Follow up with: Herminio Rowe MD [Physician] - (Melody from Dr. Herminio Lopez office will call the patient with appt)
--- NOTE | 2017-04-09 10:15 | Event Note ---
04/09/2017 Patient is stable at this point time a little concerned that his creatinine is elevated. White count is high but that is related to his chronic lymphocytic leukemia also. The leg wounds look stable on the lateral ankle area but the medial leg has one area of a little bluish discoloration that is I am concerned about just at the very top of the incision. Scrotal wound looks unchanged going need to be cleaned up a good bit but looks unchanged. CT scan shows that this is a large hernia bilaterally with bowel out in it. Main concern is that the debridement of the scrotal area with I could get into the hernias and have to do something at that time. We will look at a little bit of a bowel prep to have things in the best shape possible.
[2017-04-09] MEDS ORDERED: MAGNESIUM CITRATE 300 ML BOTTLE PO ONE (10:16)
[2017-04-09] MEDS: SODIUM CHLORIDE 0.9% 1,000 ML IV SCH ×3 (11:26→17:40)
[2017-04-09] MEDS: cefTRIAXone 1,000 MG in SODIUM CHLORIDE 0.9% 100 ML IV SCH (12:25)
--- NOTE | 2017-04-09 13:00 | Hospitalist Progress Note ---
Assessment and Plan (1) Pneumonia Status: Acute Assessment and plan: Patient remains on broad-spectrum antibiotics. Infectious disease on board and following through with this. He said that the patient is on oral fluconazole IV levofloxacin IV cefazolin but also getting ceftriaxone. There is concern of pneumonia at this point continue levofloxacin and ceftriaxone. Value of fluconazole is marginal in the face of pathology reporting I doubt she stated systemic candidiasis is part of this clinical syndrome. He has patient is at risk for that given history of chronic lymphocytic leukemia. The use of cefazolin is also marginal value given the findings of the pathologist. This to anti-infectives should be discontinued. Current Visit: Yes (2) Anemia Status: Chronic Assessment and plan: This could be secondary to his CLL. However is not critical at this point need any supplementation of hematocrit Current Visit: Yes (3) CLL (chronic lymphocytic leukemia) Status: Chronic Assessment and plan: Hematology oncology on board Current Visit: Yes (4) Leukocytosis Status: Acute Assessment and plan: This is due to CLL Current Visit: Yes Hospitalist: Subjective Interval history: Patient has been seen interviewed and examined and chart has been reviewed. He is rather despondent today but able to answer questions slowly. Patient was seen with a primary nurse in the room though no family members. Admitted to the hospital with a history of CLL and multiple skin lesions. Patient is followed also by Dr. Toth for wound management and surgical debridement. 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 Patient is on systemic spectrum antibiotics at this point. I have discussed the case with the hematology oncology and will follow up on those pathology reports the decision for use of systemic steroids is now on hold pending that evaluation. This of low broad-spectrum systemic steroids should be short-lived. Exam - Constitutional Vitals: Period Temp Pulse Resp BP Sys/Corcoran Pulse Ox Last 24 Hr 97.1 F-98.2 F 73-84 16-22 108-132/51-67 94-99 General appearance: normal weight - Head Head exam: Present: normocephalic, atraumatic - Eye Eye exam: Present: EOMI Pupils: Present: JOSETTE - ENT ENT exam: Present: other (Ear nose biopsy sites noted) - Neck Neck exam: Present: normal inspection - Respiratory Respiratory exam: Present: clear to auscultation bilaterally - Cardiovascular Cardiovascular exam: Present: other (Regular with occasional ectopy monitor strip reviewed patient has APC's) - GI/Abdominal GI/Abdominal exam: Present: normal bowel sounds - Extremities Exam Extremities exam: Present: other (Large area of area of surgical debridement is been noted on the right lower extremity) - Neurological Exam Neurological exam: Present: other (Very slow responses but appropriate. No focal neurologic deficits patient does have generalized weakness) - Psychiatric Psychiatric exam: Present: other (Subdued affect; likely secondary to acute phase illness) - Skin Skin exam: Present: other (Patient has multiple areas of skin inflammatory process. He does have a scrotal inflammatory process 2. Neurosurgical evaluation and follow-up is on board) Results - Labs CBC & BMP: 04/09/17 04:22 04/09/17 04:22 Lab Results: I have reviewed the past 24 hour labs (Reviewed pathology report please refer to the body of the subjective information for details) Quality Measures - VTE Contraindication to Pharmacological VTE Prophylaxis: High Risk of Bleeding Specialty Discharge - Follow Up or Referrals Follow up with: Herminio Rowe MD [Physician] - (Melody from Dr. Herminio Lopez office will call the patient with appt)
--- NOTE | 2017-04-09 16:15 | Nephrology Progress Note ---
Nephrology - PN: Subj Interval history: Patient is resting more awake and alert today. No other acute changes. Exam (PN)-Nephrology - Vital Signs Vital signs: Period Temp Pulse Resp BP Sys/Corcoran Pulse Ox Last 24 Hr 97.1 F-98.2 F 71-84 18-22 108-132/51-66 95-99 - General Appearance General appearance: well-developed, frail EENT: ATNC Neck: supple Respiratory: clear Cardiology: regular rate, regular rhythm Gastrointestinal: normoactive bowel sounds, no tenderness Integumentary: no rash Psychiatric: mood/affect appropriate - Lab 04/09/17 04:22 04/09/17 04:22 Most recent lab results Calcium 7.9 MG/DL (8.5-10.1) L 04/09/17 04:22 Phosphorus 2.5 MG/DL (2.5-4.9) 04/06/17 05:46 Magnesium 3.0 MG/DL (1.8-2.4) H 04/09/17 04:22 Assessment and Plan (1) Pneumonia Status: Acute Current Visit: Yes (2) Anemia Status: Chronic Current Visit: Yes (3) CLL (chronic lymphocytic leukemia) Status: Chronic Assessment and plan: At this time no therapy per Dr. Murry. Continuing to monitor. Current Visit: Yes (4) Congestive heart failure Status: Chronic Current Visit: Yes (5) Renal failure Status: Acute Assessment and plan: Appears to be acute on chronic renal failure. Current Visit: Yes Qualifiers: Chronic kidney disease stage: stage 3 (moderate) (6) Leukocytosis Status: Acute Assessment and plan: Continue leukocytosis. CBC BMP in a.m. Current Visit: Yes (7) Paroxysmal SVT (supraventricular tachycardia) Status: Acute Assessment and plan: No further SVT changes in the last shift. Current Visit: Yes Specialty Discharge - Follow Up or Referrals Follow up with: Herminio Rowe MD [Physician] - (Melody from Dr. Herminio Lopez office will call the patient with appt)
--- NOTE | 2017-04-09 17:11 | Event Note ---
Called by Hospitalist, Dr. Patel, regarding pathology from recent procedures. I have reviewed the chart. Patient has an early stage CLL that has not yet required therapy. Has multiple necrotic wounds. Taken to the OR by Dr. Toth for: Operative note: Preoperative diagnosis: 1. Progressive necrotic ischemic wound of the right ankle 2. Progressive necrotic wound of the medial aspect of the right leg 3. Progressive necrotic ulcerated area right ear 4. Aggressive necrotic area right side base of the nose Postoperative diagnosis: 1. Necrotic infected wounds of the right ankle possibly necrotizing fasciitis or severe vasculitis 2. Progressive necrotic infected wound medial aspect of the leg possibly due to necrotizing fasciitis 3. Necrotic infected ulcerated area right ear etiology unclear 4. Necrotic ulcerated area base of the nose right side Procedure: 1. Extensive excisional debridement of skin subtenons tissue fascia of the right ankle ulcer 2. Extensive debridement of skin subcutaneous tissue ulcer of the medial aspect of the right leg 3. Excisional debridement of ulcer of the right ear 4. Extensive debridement of ulcer base of the right nose. It appears that skin cultures have grown Staph epidermidis and capitis. Abscess cultures have been without growth. Pathology report today reads as: #1 SKIN OF RIGHT PREAURICULAR, BIOPSY: Skin with ulceration and abscess formation that extends to involve the underlying panniculus. #2 SKIN OF RIGHT NOSE, BIOPSY: Skin with reactive changes and underlying abscess formation. #3 SKIN OF RIGHT MEDIAL LEG, EXCISION: Skin with underlying abscess formation, predominately within the panniculus and deep tissue. #4 SKIN OF RIGHT LATERAL ANKLE, EXCISION: Skin with underlying abscess formation , predominately within the panniculus and deep tissue. AFB and GMS special stains with appropriate controls are negative. Note: Tissue from sites biopsied above show similar findings with a predominately deep, acute inflammatory infiltrate. Specimen #1 also contains superficial acute inflammation. The patients history of chronic lymphocytic leukemia (CLL) is noted and a paraneoplastic syndrome should be considered, including Pyoderma Gangrenosum. A malignant lymphoid infiltrate is NOT appreciated. Other considerations include underlying hypercoaguable or thrombotic processes but are less favored as vascular thrombi are NOT appreciated. After reviewing the literature, it appears that the skin manifesting paraneoplastic syndromes related to CLL are of a vasculitis and bullous pemphigoid. I find no case reports directly linking Pyoderma Gangrenosum and CLL. Either way, the paraneoplastic syndromes related to CLL usually do not warrant chemotherapy, but rather treatment directly for whatever syndrome develops. Most commonly these are autoimmune hemolytic anemia and ITP, and we treat these with steroids. Given that each specimen describes an abscess, I am more concerned about the potential for hypogammaglobulinemia that is quite common with CLL and typically manifests as skin and other recurrent infections. If hypogam, IVIG is an easy treatment. At this point, I recommend to check quantitative immunoglobulins (I will order these for the am). Would defer treatment with steroids to the primary team/ infectious disease team and would continue antibiotics for suspected abscesses. Will follow up on quantitative immunoglobulins and direct further at that time.
[2017-04-09] MEDS: LEVOFLOXACIN INJ 750 MG in PREMIX 1 EACH IV SCH (20:28)
[2017-04-10] MEDS: ALBUTEROL/IPRATROPIUM 3 ML NEB RESP TX SCH ×6 (00:43→20:26)
[2017-04-10] MEDS: HYDROmorphone 2 MG/1 ML VIAL IV PRN ×2 (00:48→17:30)
[2017-04-10] MEDS: INSULIN REGULAR 100 UNIT/ML SUBCUT SCH ×5 (01:00→21:54)
[2017-04-10] MEDS: SODIUM CHLORIDE 0.9% 1,000 ML IV SCH ×2 (04:08→17:02)
[2017-04-10] MEDS: oxyCODONE/ACETAMINOPHEN 5-325 MG TABLET PO PRN ×2 (04:11→16:19)
[2017-04-10 05:04] LABS: Basophils # 0.1 10*3/uL (0.0-0.2); Basophils % 0.2 % (0.0-0.8); Eosinophils # 0.1 10*3/uL (0.0-0.87); Eosinophils % 0.3 % (0.00-10.9); Hematocrit 30.3 VOL% (42.0-52.0); Hemoglobin 9.7 GM/DL (14.0-18.0); Immature Granulocytes % 0.4 %; Immature Granulocytes Absolute 0.18 #; Lymphocytes # 29.8 10*3/uL (1.4-4.0); Mean Corpuscular Hemoglobin 28 PG (27-34); Mean Corpuscular Volume 88.1 FL (87-102); Mean Platelet Volume 9.5 FL (9.6-12.0); Monocytes % 23.7 % (1.7-12.7); Neutrophils # 8.4 10*3/uL (1.4-7.4); Neutrophils % 16.4 % (38.7-73.9); Platelet Count 342 T/CUMM (130-400); Red Blood Count 3.44 MC/CUMM (3.8-5.5); Red Cell Distribution Width 18.1 % (9.3-17.3)
[2017-04-10 05:19] LABS: INR 1.2; PT Patient Result 12.7 SECS; Partial Thromboplastin Time 30.2 SECS (0-40)
[2017-04-10 05:21] LABS: White Blood Count 50.6 T/CUMM (4-12)
[2017-04-10 05:33] LABS: Alanine Aminotransferase < 6 U/L (16-61); Albumin 1.4 G/DL (3.4-5.0); Alkaline Phosphatase 187 U/L (45-117); Aspartate Amino Transferase 25 U/L (0-37); Blood Urea Nitrogen 90 MG/DL (7-18); Glucose 100 MG/DL (74-106); Osmolality,Calculated 291.5 MOS/KG (273-304); Potassium 5.4 MMOL/L (3.5-5.1); Sodium 132 MMOL/L (136-145); Total Protein 5.8 G/DL (6.4-8.3)
[2017-04-10 05:40] LABS: Immunoglobulin A 407 MG/DL (70-400); Immunoglobulin G 1460 MG/DL (700-1600); Immunoglobulin M 36 MG/DL (40-230)
[2017-04-10 05:49] LABS: Total Cells Counted 100
[2017-04-10 05:50] LABS: Hypochromasia 2+; Lymphocytes 68 % (20-55); Platelet Estimate Normal; Segmented Neutrophils 15 % (50-85)
--- NOTE | 2017-04-10 07:08 | Cardiology Progress Note ---
Assessment and Plan (1) Paroxysmal SVT (supraventricular tachycardia) Status: Acute Assessment and plan: This is been stable in the beta-johnathon now for 3+ days. Current Visit: Yes (2) Congestive heart failure Status: Chronic Assessment and plan: This is based on BMP and some abnormalities his chest x-ray. This still may not all be from heart failure if the heart failure at all. His echocardiogram does not necessarily give us a etiology for this. Certainly his chest x-ray normality's may be from his other underlying medical issues including infectious process. Current Visit: Yes (3) Anemia Status: Chronic Assessment and plan: This appears stable at this time. Current Visit: Yes (4) CLL (chronic lymphocytic leukemia) Status: Chronic Assessment and plan: Is followed by Dr. Murry. His white count is elevated I am not sure if this is from his leukemia versus other. Current Visit: Yes (5) Pneumonia Status: Acute Assessment and plan: He is on IV antibiotics. Current Visit: Yes (6) Renal failure Status: Acute Assessment and plan: He is having increasing BUN and creatinine. Current Visit: Yes Qualifiers: Chronic kidney disease stage: stage 3 (moderate) (7) Electrolyte abnormality Status: Acute Assessment and plan: This includes his hyponatremia and his hyperkalemia. Current Visit: Yes Cardiology - PN: Subj Interval history: SUMMARY: Mr. 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 He denies any known heart problems, he also denies having had a heart catheterization or stress testing done in the past. He is followed by Dr. Murry for chronic lymphocytic leukemia. He is a poor historian. He denies any surgical history, and he also denies any family history. He reports is a lifetime non-smoker. Mr. Antonio reports he has been short of breath with a nonproductive cough for about a week. He cannot tell me if the shortness of breath is at rest, with exertion, or both. He reports having occasional chest pain for the past week as well. He cannot describe the pain to me or tell me any triggers or alleviators. He says it hurts in the middle top part of his chest beneath his throat. He rates it a 6 or a 7 on a scale of 1-10. He reports she has been having some palpitations at home, but denies any since admission. He also complains of weakness for the last week or so. He presented to the emergency department [facility] in [place] for the symptoms. He was found to have an elevated troponin of 0.38 and pro BNP of 11,036. He was transferred to our facility for further evaluation. Troponin on arrival here was 0.415 recheck last night was 0.271. Kidney function has been elevated with BUN of 50 and creatinine 2.0. He denies any known history of kidney problems. BNP was 433. H&H was 7.9 and 24.3. 2 units of red blood cells were ordered, one unit has been transfused. Potassium was 2.8. EKG on arrival here with sinus rhythm and right bundle branch block, heart rate of 82. Chest x-ray suggested small bilateral pleural effusions with right basilar pneumonia and left basilar atelectasis. In the emergency department he was given Lasix IV as well as Lopressor 25 mg p.o. he was also given duo nebs treatments and has been started on IV antibiotics. During the night he had some runs of sinus tach but now with SVT with narrow complex QRS in the 140s. He denies having any palpitations or chest pain with these episodes. From a cardiac standpoint he had had SVT here that is responded well to beta-blockers. He has had increase potassium but this is been flat. His creatinine is been increasing as has his BUN. His chest x-ray originally looked like it may be some element of heart failure as well as pneumonia. He had been on antibiotics as well as diuretic. His diuretic has been stopped. He has multiple other noncardiac issues that this is most significant problems. 04/10/17: The patient from cardiac standpoint is stable. He has had no further SVT or tachyarrhythmias documented now for the last 3+ days. His blood pressure heart rates have been stable. His general condition is poor but is not changed. He has no real specific cardiac complaints today. He has multiple other noncardiac issues that are his biggest limiting problems. We have just been following his SVT while his other evaluations have been ongoing. Exam (Progress Note) - Constitutional Vitals: Period Temp Pulse Resp BP Sys/Corcoran Pulse Ox Last 24 Hr 97.2 F-98.2 F 71-89 16-22 110-131/60-68 95-99 Exam: General appearance: Elderly man that appears to be his age, normal weight, no acute distress lying in bed. HEENT exam: normal inspection, atraumatic. He has bandage over his right nose and ear where there was previously noted skin lesion and is postop. Neck exam: normal inspection no JVD. No carotid bruit. Trachea is in midline Respiratory/lungs exam: clear to auscultation bilaterally and anteriorly good air movement. Cardiovascular exam: Regular rate and rhythm. No gross murmur. No precordial lift. Chest wall exam: nontender GI/Abdominal exam: He has a large inguinal hernia present. Normal bowel sounds , soft, nontender. Extremeties/musculoskeletal: Trace edema lower extremities. Bandaged wound right ankle. Neurological exam: alert, oriented X3, no focal deficits Psychiatric exam: normal affect, normal mood. Cognitive function is grossly normal. Skin exam: Bandages over skin lesions of his right nose and ear as well as right ankle that we have noted previously. Result/EKG - Labs CBC & BMP: 04/10/17 04:29 04/10/17 04:29 Lab Results: I have reviewed the past 24 hour labs Labs: Laboratory Results - last 24 hr 04/09/17 04/09/17 04/09/17 07:16 11:56 16:17 WBC RBC Hgb Hct MCV MCH MCHC RDW Plt Count MPV Neut % (Auto) Lymph % (Auto) [place] % (Auto) Eos % (Auto) Baso % (Auto) Neut # (Auto) Lymph # (Auto) [place] # (Auto) Eos # (Auto) Baso # (Auto) Total Counted Immature Gran % Nucleated RBC % Immature Gran # Segmented Neutrophils Lymphocytes Monocytes Nucleated RBCs # Platelet Estimate Hypochromasia INR PT Patient/Control Mix Circ Anticoag PTT Sodium Potassium Chloride Carbon Dioxide Anion Gap BUN Creatinine GFR Calculation BUN/Creatinine Ratio Glucose POC Glucose 117 H 118 H 118 H Calculated Osmolality Calcium Total Bilirubin AST ALT Alkaline Phosphatase Total Protein Albumin Globulin Albumin/Globulin Ratio IgG IgA IgM 04/09/17 04/10/17 04/10/17 22:11 04:29 04:29 WBC 50.6 H* RBC 3.44 L Hgb 9.7 L Hct 30.3 L MCV 88.1 MCH 28 MCHC 32.0 RDW 18.1 H Plt Count 342 MPV 9.5 L Neut % (Auto) 16.4 L Lymph % (Auto) 59.0 H [place] % (Auto) 23.7 H Eos % (Auto) 0.3 Baso % (Auto) 0.2 Neut # (Auto) 8.4 H Lymph # (Auto) 29.8 H [place] # (Auto) 12.0 H Eos # (Auto) 0.1 Baso # (Auto) 0.1 Total Counted 100 Immature Gran % 0.4 Nucleated RBC % 0.0 Immature Gran # 0.18 Segmented Neutrophils 15 L Lymphocytes 68 H Monocytes 17 H Nucleated RBCs # 0.00 Platelet Estimate Normal Hypochromasia 2+ INR 1.2 PT Patient/Control Mix 12.7 Circ Anticoag PTT 30.2 Sodium Potassium Chloride Carbon Dioxide Anion Gap BUN Creatinine GFR Calculation BUN/Creatinine Ratio Glucose POC Glucose 125 H Calculated Osmolality Calcium Total Bilirubin AST ALT Alkaline Phosphatase Total Protein Albumin Globulin Albumin/Globulin Ratio IgG IgA IgM 04/10/17 04/10/17 04:29 04:29 WBC RBC Hgb Hct MCV MCH MCHC RDW Plt Count MPV Neut % (Auto) Lymph % (Auto) [place] % (Auto) Eos % (Auto) Baso % (Auto) Neut # (Auto) Lymph # (Auto) [place] # (Auto) Eos # (Auto) Baso # (Auto) Total Counted Immature Gran % Nucleated RBC % Immature Gran # Segmented Neutrophils Lymphocytes Monocytes Nucleated RBCs # Platelet Estimate Hypochromasia INR PT Patient/Control Mix Circ Anticoag PTT Sodium 132 L Potassium 5.4 H Chloride 96 L Carbon Dioxide 25 Anion Gap 16.4 H BUN 90 H Creatinine 3.90 H GFR Calculation 16 BUN/Creatinine Ratio 23.00 H Glucose 100 POC Glucose Calculated Osmolality 291.5 Calcium 8.0 L Total Bilirubin 1.50 H AST 25 ALT < 6 L Alkaline Phosphatase 187 H Total Protein 5.8 L Albumin 1.4 L Globulin 4.4 H Albumin/Globulin Ratio 0.3 L IgG 1460 IgA 407 H IgM 36 L - Impressions Impressions: Telemetry with normal sinus rhythm without any dysrhythmias or SVT. Quality Measures - VTE Contraindication to Pharmacological VTE Prophylaxis: High Risk of Bleeding Specialty Discharge - Follow Up or Referrals Follow up with: Herminio Rowe MD [Physician] - (Melody from Dr. Herminio Lopez office will call the patient with appt)
[2017-04-10] MEDS: MULTIVITAMIN (CENTRUM) TABLET PO SCH (09:14)
[2017-04-10] MEDS: PANTOPRAZOLE 40 MG TABLET PO SCH (09:14)
[2017-04-10] MEDS: METOPROLOL TARTRATE 50 MG TABLET PO SCH ×2 (09:14→20:57)
[2017-04-10] MEDS ORDERED: MAGNESIUM CITRATE 300 ML BOTTLE PO ONE (10:16)
--- NOTE | 2017-04-10 10:42 | Nephrology Progress Note ---
Nephrology - PN: Subj Interval history: Patient is resting comfortably. Serum creatinine is noted to be 3.9. No other acute changes. Plan for wound debridement on tomorrow. Exam (PN)-Nephrology - Vital Signs Vital signs: Period Temp Pulse Resp BP Sys/Corcoran Pulse Ox Last 24 Hr 96.9 F-98.2 F 71-89 16-22 119-132/60-69 94-99 - General Appearance General appearance: well-developed, frail EENT: ATNC Neck: supple Respiratory: clear Cardiology: regular rate, regular rhythm Gastrointestinal: normoactive bowel sounds, no tenderness Integumentary: ulcer (Right lower leg is bandaged) Musculoskeletal: no deformities Psychiatric: cooperative - Lab 04/10/17 04:29 04/10/17 04:29 Most recent lab results Calcium 8.0 MG/DL (8.5-10.1) L 04/10/17 04:29 Phosphorus 2.5 MG/DL (2.5-4.9) 04/06/17 05:46 Magnesium 3.0 MG/DL (1.8-2.4) H 04/09/17 04:22 Assessment and Plan (1) Pneumonia Status: Acute Current Visit: Yes (2) Anemia Status: Chronic Current Visit: Yes Qualifiers: Chronic kidney disease stage: stage 4 (severe) (3) CLL (chronic lymphocytic leukemia) Status: Chronic Assessment and plan: At this time no therapy per Dr. Murry. Continuing to monitor. Current Visit: Yes (4) Congestive heart failure Status: Chronic Current Visit: Yes (5) Renal failure Status: Acute Assessment and plan: Appears to be acute on chronic renal failure. Current Visit: Yes Qualifiers: Chronic kidney disease stage: stage 4 (severe) (6) Leukocytosis Status: Acute Assessment and plan: Continue leukocytosis. CBC BMP in a.m. Current Visit: Yes (7) Paroxysmal SVT (supraventricular tachycardia) Status: Acute Assessment and plan: No further SVT changes in the last shift. Current Visit: Yes Specialty Discharge - Follow Up or Referrals Follow up with: Herminio Rowe MD [Physician] - (Melody from Dr. Herminio Lopez office will call the patient with appt)
--- NOTE | 2017-04-10 11:38 | Hospitalist Progress Note ---
Assessment and Plan (1) Pneumonia Status: Acute Assessment and plan: Patient remains on broad-spectrum antibiotics. Infectious disease on board and following through with this. He said that the patient is on oral fluconazole IV levofloxacin IV cefazolin but also getting ceftriaxone. There is concern of pneumonia at this point continue levofloxacin and ceftriaxone. Value of fluconazole is marginal in the face of pathology reporting I doubt she stated systemic candidiasis is part of this clinical syndrome. He has patient is at risk for that given history of chronic lymphocytic leukemia. The use of cefazolin is also marginal value given the findings of the pathologist. This to anti-infectives should be discontinued. Current Visit: Yes (2) Anemia Status: Chronic Assessment and plan: This could be secondary to his CLL. However is not critical at this point need any supplementation of hematocrit Current Visit: Yes Qualifiers: Chronic kidney disease stage: stage 4 (severe) (3) CLL (chronic lymphocytic leukemia) Status: Chronic Assessment and plan: Hematology oncology on board Current Visit: Yes (4) Leukocytosis Status: Acute Assessment and plan: This is due to CLL Current Visit: Yes Hospitalist: Subjective Interval history: Patient has been seen interviewed and examined and chart has been reviewed. Is not offering any new complaints still looks rather frail. Patient has had debridement of his soft tissue inflammatory sites and today it looks like the scrotal lesion has also been surgically looked at. Gentleman admitted to the hospital shortness of breath failure to thrive history of chronic lymphocytic leukemia persistent leukocytosis with lymphocytosis predominance obviously a picture of chronic lymphocytic leukemia. He also has multiple skin soft tissue inflammatory processes which have had surgical debridement and biopsy. Pathologic evaluation reveals a sterile acute inflammatory process no organisms seen. This is varus suggestive of pyoderma gangrenosum. I discussed the finding with covering oncologist. They are to look at this report. Of interest is where the patient is to be given some systemic steroids. I am informed that there will be need of further debridement of the scrotal site. Exam - Constitutional Vitals: Period Temp Pulse Resp BP Sys/Corcoran Pulse Ox Last 24 Hr 96.9 F-98.2 F 72-89 16-22 119-132/60-69 94-99 General appearance: no acute distress - Head Head exam: Present: normocephalic, atraumatic - Eye Eye exam: Present: EOMI Pupils: Present: JOSETTE - Respiratory Respiratory exam: Present: clear to auscultation bilaterally - Cardiovascular Cardiovascular exam: Present: regular rate and rhythm - GI/Abdominal GI/Abdominal exam: Present: normal bowel sounds - Extremities Exam Extremities exam: Present: other (Generalized weakness) - Neurological Exam Neurological exam: Present: alert, oriented X3 - Psychiatric Psychiatric exam: Present: other Results - Labs CBC & BMP: 04/10/17 04:29 04/10/17 04:29 Lab Results: I have reviewed the past 24 hour labs Quality Measures - VTE Contraindication to Pharmacological VTE Prophylaxis: High Risk of Bleeding Specialty Discharge - Follow Up or Referrals Follow up with: Herminio Rowe MD [Physician] - (Melody from Dr. Herminio Lopez office will call the patient with appt)
[2017-04-10] MEDS: cefTRIAXone 1,000 MG in SODIUM CHLORIDE 0.9% 100 ML IV SCH (12:50)
--- NOTE | 2017-04-10 12:54 | General Surgery Progress Note ---
Assessment and Plan (1) Scrotal ulcer Status: Acute Assessment and plan: Debridement planned for Tuesday. Current Visit: Yes Subjective Patient reports: Present: no new complaints Exam - Constitutional Vitals: Period Temp Pulse Resp BP Sys/Corcoran Pulse Ox Last 24 Hr 96.9 F-98.1 F 72-89 16-22 119-133/64-74 94-99 General appearance: no acute distress - Neck Neck exam: Present: normal inspection - Cardiovascular Cardiovascular exam: Present: RRR - GI/Abdominal GI/Abdominal exam: Present: soft - Anus/Rectum Anus/Rectum: other (On the scrotum there is still foul-smelling drainage present. This likely needs debridement.) Results - Labs CBC & BMP: 04/10/17 04:29 04/10/17 04:29 Quality Measures - VTE Contraindication to Pharmacological VTE Prophylaxis: High Risk of Bleeding Specialty Discharge - Follow Up or Referrals Follow up with: Herminio Rowe MD [Physician] - (Melody from Dr. Herminio Lopez office will call the patient with appt)
[2017-04-10] MEDS ORDERED: BISACODYL 5 MG TABLET PO ONE (13:47)
--- NOTE | 2017-04-10 15:21 | Event Note ---
04/10/2017 Have had a discussion with the patient and the family concerning the surgery tomorrow on his scrotum. They understand that we are going to do a debridement of the scrotal area. Because he has this large hernia with bowel out in it I have explained to them that if there was anything that would happen that would expose the bowel get into the hernia at this point it may force us to do a bigger incision and surgery get in there and fix the hernia at the same time. They seem to understand this and agreeable to go ahead with surgery at this time. Explained to them that we probably will look at the wounds on the legs since there was one little dark area on the medial wound of the leg yesterday that we need probably to look at and probably excise if indicated.
[2017-04-10] MEDS: methylPREDNISolone SOD SUC INJ 1,000 MG in SODIUM CHLORIDE 0.9% 100 ML IV SCH (17:02)
[2017-04-10] MEDS: SODIUM HYPOCHLORITE 0.25% IRRIG 473 ML BOTTLE TOP SCH (18:10)
[2017-04-10] MEDS: SKIN HEALING OINT (AQUAPHOR) 50 GM TUBE TOP SCH (18:10)
[2017-04-10] MEDS: BACITRACIN OINT 0.9 GM PACK TOP SCH (18:10)
[2017-04-10] MEDS: GENTAMICIN 0.1% OINT 15 GM TUBE TOP SCH ×3 (18:10→20:58)
[2017-04-11] MEDS: ALBUTEROL/IPRATROPIUM 3 ML NEB RESP TX SCH ×6 (00:17→19:35)
[2017-04-11] MEDS: HYDROmorphone 2 MG/1 ML VIAL IV PRN ×2 (01:39→17:54)
[2017-04-11] MEDS: SODIUM CHLORIDE 0.9% 1,000 ML IV SCH ×2 (06:45→22:44)
--- NOTE | 2017-04-11 07:17 | Oncology Progress Note ---
Oncology Subjective PN Interval history: I have reviewed the recent lab work on this patient with chronic lymphocytic leukemia. He is having problem with abscesses and very well may be immunosuppressed. A serum immunoelectrophoresis has been done in the results are partly back. He does not have any low immunoglobulins. His IgA is actually elevated. It remains to be seen whether or not he has an M spike. I note that he has developed antibodies on his red cells on the direct antibody test. I am rechecking a haptoglobin. I ordered a C3, C4 and CH 50 since patients with chronic lymphocytic leukemia can be deficient in complement and this causes them to have difficulty dealing with infections.His C3 is 119 and his CD4 is 21.9, both of which are normal. I do not see any interpretation of the immunoelectrophoresis so far. He is critically ill due to his significant debilitation and his advanced age. Exam - Constitutional Vitals: Period Temp Pulse Resp BP Sys/Corcoran Pulse Ox Last 24 Hr 96.9 F-97.9 F 75-109 16-20 129-136/55-74 94-99 Results - Labs CBC & BMP: 04/11/17 07:33 04/11/17 07:33 Quality Measures - VTE Contraindication to Pharmacological VTE Prophylaxis: High Risk of Bleeding Specialty Discharge - Follow Up or Referrals Follow up with: Herminio Rowe MD [Physician] - (Melody from Dr. Herminio Lopez office will call the patient with appt)
[2017-04-11 08:06] LABS: Basophils # 0.1 10*3/uL (0.0-0.2); Basophils % 0.2 % (0.0-0.8); Hematocrit 30.1 VOL% (42.0-52.0); Hemoglobin 9.7 GM/DL (14.0-18.0); Immature Granulocytes % 0.3 %; Immature Granulocytes Absolute 0.17 #; Lymphocytes # 34.2 10*3/uL (1.4-4.0); Lymphocytes % 66.6 % (21.2-54.2); Mean Corpuscular HGB Conc 32.2 GM/DL (32-36); Mean Corpuscular Hemoglobin 29 PG (27-34); Mean Corpuscular Volume 89.3 FL (87-102); Mean Platelet Volume 9.4 FL (9.6-12.0); Monocytes # 9.6 10*3/uL (0.11-0.8); Monocytes % 18.8 % (1.7-12.7); Neutrophils # 7.2 10*3/uL (1.4-7.4); Neutrophils % 14.1 % (38.7-73.9); Platelet Count 321 T/CUMM (130-400); Red Blood Count 3.37 MC/CUMM (3.8-5.5); Red Cell Distribution Width 17.9 % (9.3-17.3)
[2017-04-11 08:10] LABS: White Blood Count 51.2 T/CUMM (4-12)
[2017-04-11 08:31] LABS: Hypochromasia 1+; Lymphocytes 74 % (20-55); Microcytosis Slight; Ovalocytes Slight; Platelet Estimate Adequate; Segmented Neutrophils 23 % (50-85); Smudge Cells Few; Total Cells Counted 100
[2017-04-11 08:47] LABS: Alanine Aminotransferase < 6 U/L (16-61); Albumin 1.5 G/DL (3.4-5.0); Alkaline Phosphatase 175 U/L (45-117); Aspartate Amino Transferase 19 U/L (0-37); Blood Urea Nitrogen 96 MG/DL (7-18); Calcium 7.7 MG/DL (8.5-10.1); Glucose 173 MG/DL (74-106); Osmolality,Calculated 295.7 MOS/KG (273-304); Sodium 131 MMOL/L (136-145); Total Protein 5.9 G/DL (6.4-8.3)
[2017-04-11 08:53] LABS: Potassium 6.8 MMOL/L (3.5-5.1)
[2017-04-11] MEDS: METOPROLOL TARTRATE 50 MG TABLET PO SCH ×2 (09:00→20:26)
[2017-04-11 09:48] LABS: Immunoglobulin A 413 MG/DL (70-400); Immunoglobulin G 1520 MG/DL (700-1600); Immunoglobulin M 36 MG/DL (40-230)
[2017-04-11] MEDS: PANTOPRAZOLE 40 MG VIAL IV SCH (09:58)
[2017-04-11] MEDS ORDERED: SODIUM POLYSTYRENE SULFATE 15 GM/60 ML BOTTLE PO STA (09:58)
[2017-04-11] MEDS ORDERED: SODIUM POLYSTYRENE SULFATE 15 GM/60 ML BOTTLE ONE (10:02)
[2017-04-11] MEDS: MULTIVITAMIN (CENTRUM) TABLET PO SCH (10:23)
[2017-04-11] MEDS: INSULIN REGULAR 100 UNIT/ML SUBCUT SCH ×4 (10:23→20:28)
[2017-04-11] MEDS: GENTAMICIN 0.1% OINT 15 GM TUBE TOP SCH ×3 (10:25→20:23)
[2017-04-11] MEDS: SODIUM HYPOCHLORITE 0.25% IRRIG 473 ML BOTTLE TOP SCH (10:25)
[2017-04-11] MEDS: SKIN HEALING OINT (AQUAPHOR) 50 GM TUBE TOP SCH (10:25)
[2017-04-11] MEDS: BACITRACIN OINT 0.9 GM PACK TOP SCH (10:25)
[2017-04-11 10:52] LABS: Immunoglobulin A (Chem) 413 MG/DL (70-400); Immunoglobulin G (Chem) 1520 MG/DL (700-1600); Immunoglobulin M (Chem) 36 MG/DL (40-230)
--- NOTE | 2017-04-11 11:25 | Hospitalist Progress Note ---
Assessment and Plan (1) Pneumonia Status: Acute Assessment and plan: Patient remains on broad-spectrum antibiotics. Biopsy of the lesions are negative for any pathogens. 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 Patient was started on steroids yesterday we will continue that today. Follow clinical picture. Current Visit: Yes (2) Anemia Status: Chronic Assessment and plan: This could be secondary to his CLL. However is not critical at this point need any supplementation of hematocrit Current Visit: Yes Qualifiers: Chronic kidney disease stage: stage 4 (severe) (3) CLL (chronic lymphocytic leukemia) Status: Chronic Assessment and plan: Hematology oncology on board Current Visit: Yes (4) Leukocytosis Status: Acute Assessment and plan: This is due to CLL Current Visit: Yes (5) Hyperkalemia Status: Acute Assessment and plan: Give patient 20 g of Kayexalate today. Repeat potassium around 1400 hrs. today. If is still high will resort to using an amp of bicarbonate amp of D50 W and 15 units of regular insulin IV. Current Visit: Yes Hospitalist: Subjective Interval history: Patient has been seen and examined and chart has been reviewed. He is remains very frail. 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 Decision was made after discussion with both surgery and hematology-Oncology. Caloric intake remains suspect at this point. This patient is supplementation of nocturnally energy coronaries but also protein calories. Dietary consult is in order Exam - Constitutional Vitals: Period Temp Pulse Resp BP Sys/Corcoran Pulse Ox Last 24 Hr 97.1 F-97.9 F 71-109 16-20 123-145/55-76 93-99 General appearance: normal weight - Head Head exam: Present: normocephalic - Eye Eye exam: Present: conjunctival injection Pupils: Present: JOSETTE - Respiratory Respiratory exam: Present: clear to auscultation bilaterally, other (Weak inspiratory poor) - Cardiovascular Cardiovascular exam: Present: regular rate and rhythm - GI/Abdominal GI/Abdominal exam: Present: normal bowel sounds, soft - Extremities Exam Extremities exam: Present: other (Generalized weakness noted large ulcer on the medial aspect of the right lower leg site of prior biopsy. Patient also has multiple other sites of biopsy including bridge of the nose on the right the right ear) - Neurological Exam Neurological exam: Present: alert, CN II-XII intact, other (Patient is able to answer questions appropriately oriented to name and place) - Psychiatric Psychiatric exam: Present: other (Extremely weak) - Skin Skin exam: Present: other (Noted the multiple sites of spontaneous ulcerations which have had biopsy in surgical debridement. These included as mentioned above but also in the scrotum) Results - Labs CBC & BMP: 04/11/17 07:33 04/11/17 09:09 Lab Results: I have reviewed the past 24 hour labs (Noted to leukocytosis and chronic anemia which is stable his potassium is quite high today at 6.6 my suspicion this is secondary to psoriasis to give him some Kayexalate one shot. If this does not improve then will have to use bicarbonate 1 amp and the D50 W 1 amp and insulin 15 units) Quality Measures - VTE Contraindication to Pharmacological VTE Prophylaxis: High Risk of Bleeding Specialty Discharge - Follow Up or Referrals Follow up with: Herminio Rowe MD [Physician] - (Melody from Dr. Herminio Lopez office will call the patient with appt)
[2017-04-11] MEDS: cefTRIAXone 1,000 MG in SODIUM CHLORIDE 0.9% 100 ML IV SCH (12:00)
--- NOTE | 2017-04-11 12:57 | Infectious Disease Progress ---
Assessment and Plan (1) Abscess of right external ear Status: Acute Assessment and plan: MRSE cultured. There is no surrounding cellulitis. Recommendations: Continue local wound care. Will not add specific antibiotic for the MRSE as risks outweigh benefits. Current Visit: Yes (2) Cellulitis and abscess of left lower extremity Status: Acute Assessment and plan: Continue ceftriaxone and follow-up on histopathology results. Current Visit: Yes (3) Chronic kidney disease, stage III (moderate) Status: Chronic Current Visit: Yes (4) Inguinal hernia Status: Acute Current Visit: Yes Qualifiers: Laterality: unspecified laterality Recurrence: non-recurrent (5) Pneumonia Status: Acute Assessment and plan: Community-acquired pneumonia. Infiltrate improved since admission. Recommendations: Continue ceftriaxone and levofloxacin Current Visit: Yes (6) CLL (chronic lymphocytic leukemia) Status: Chronic Current Visit: Yes Infectious Disease - PN: Subj Interval history: Patient complains of feeling sore all over. He has not had any fever. Wounds are to be debrided again today in the operating room. Infectious Disease Exam (PN) - Constitutional Vitals: Temp Pulse Resp BP Pulse Ox 97.9 F 78 18 123/60 93 L 04/11/17 11:06 04/11/17 11:06 04/11/17 11:06 04/11/17 11:06 04/11/17 11:06 General appearance: normal weight Exam: General appearance: Very frail and ill looking - Eye Eye exam: Present: EOMI. no icterus Pupils: Present: JOSETTE - ENT ENT exam: Ulcerations noted on hard palate and also about severely carious teeth in the upper gums - Respiratory Respiratory exam: vesicular BS, no crepitations or wheezes - Cardiovascular Cardiovascular exam: regular rate and rhythm, no murmurs - GI/Abdominal GI/Abdominal exam: normal bowel sounds, soft, non-tender, no organomegaly or mass - Extremities Exam Extremities exam: Right leg wound bandaged - Skin Skin exam: Necrotic looking ulcer to the anterior aspect of the right ear, very large necrotic ulceration to the undersurface of the scrotum on the left, no foul odor Results - Labs CBC & BMP: 04/11/17 07:33 04/11/17 12:10 Lab Results: I have reviewed the past 24 hour labs (MRSE from wound to right ear ) Quality Measures - VTE Contraindication to Pharmacological VTE Prophylaxis: High Risk of Bleeding Specialty Discharge - Follow Up or Referrals Follow up with: Herminio Rowe MD [Physician] - (Melody from Dr. Herminio Lopez office will call the patient with appt)
[2017-04-11] MEDS ORDERED: ceFAZolin 2,000 MG in PREMIX 1 EACH IV ONE (12:58)
--- NOTE | 2017-04-11 13:32 | Cardiology Progress Note ---
Vinny Méndez Vanessa, RN, am scribing for, and in the presence of, Christoph Soto MD 13:32. Assessment and Plan - Time spent with patient Time spent with patient: Greater than 30 minutes (1) Paroxysmal SVT (supraventricular tachycardia) Status: Acute Assessment and plan: This appears to have resolved at this time after addition of beta-johnathon. No paroxysmal SVT per telemetry monitoring strips in the past 5-6 days. Current Visit: Yes (2) Hyperkalemia Status: Acute Assessment and plan: K+ 6.8, 6.6 today. He has received Kayexalate. Follow-up BMP. Current Visit: Yes (3) Pneumonia Status: Acute Assessment and plan: Patient is on appropriate IV antibiotics. Will defer to hospital medicine. Current Visit: Yes (4) Scrotal ulcer Status: Acute Assessment and plan: This is been evaluated by surgical services, and he is for debridement of area today. Current Visit: Yes (5) Congestive heart failure Status: Chronic Assessment and plan: Clinically, appears to be stable without overt S/S of heart failure at this time. Current Visit: Yes (6) CLL (chronic lymphocytic leukemia) Status: Chronic Assessment and plan: Diagnosis August 2016, and he is followed by Dr. Murry. Current Visit: Yes (7) CKD (chronic kidney disease) stage 4, GFR 15-29 ml/min Status: Acute Assessment and plan: History of renal insufficiency, and renal function has worsened since admission with creatinine up to 3.8. Nephrology is following also. Avoiding nephrotoxic agents. 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 ZEPEDA (NEW) SUMMARY: Mr. Antonio is an 81-year-old male with no significant previous cardiac history. Past medical history includes chronic lymphocytic leukemia and renal insufficiency, and he is routinely followed by Dr. Rigoberto Murry. Patient was accepted to [facility] in transfer from [facility] for shortness of breath and chest pain. EKG and cardiac biomarkers benign for acute ischemic finding. Chest x-ray revealed right basilar pneumonia, and BNP 433. He was admitted per hospital medicine, and cardiology was initially asked to see for troponin level of 0.415. Troponin level has since trended down, but he has had some paroxysmal SVT with pulse rate 140s-150s. This has responded well to the addition of beta-johnathon, and pulse rates have been regular for 5-6 days now. There has been question as to whether or not there is a component of congestive heart failure, but there have been no significant clinical findings to support this. Echocardiogram on April 03 with normal LV size and systolic function and EF 55-60%, mild to moderate TR, and mildly elevated right-sided pressures. Patient has also received treatment for cellulitis of right leg. March: Resting quietly this morning. No new findings or acute changes in patient's hemodynamic status. Telemetry monitoring reveals sinus rhythm with pulse rate in the 70s and 80s, peaked T-wave but no overt ectopy or dysrhythmia. Hyperkalemic with K+ 6.8 this morning. Recheck K+ 6.6, and he received 15 g Kayexalate. Creatinine has trended up since admission from 2.0 to 3.8 currently. Systolic BP 130-145 mmHg. He had some abscesses, and is scheduled for debridement of scrotal ulcer today. Current Medications Acetaminophen (Tylenol Tab) 650 mg PO Q4H PRN PRN Reason: Fever, Headache, Mild Pain Albuterol/Ipratropium (Duoneb) 3 ml RESP TX RT Q4H [facility] Last Admin: 04/11/17 10:49 Dose: 3 ml Bacitracin () 1 applic TOP DAILY [facility] Last Admin: 04/11/17 10:25 Dose: Not Given Dextrose/Water (D50) 25 gm IV PRN PRN PRN Reason: Hypoglycemia with IV access Ergocalciferol (Drisdol) 50,000 unit PO Q7D [facility] Stop: 05/25/17 10:00 Last Admin: 04/06/17 10:28 Dose: 50,000 unit Gentamicin Sulfate (Garamycin 0.1% Oint) 1 applic TOP TID [facility] Last Admin: 04/11/17 10:25 Dose: Not Given Glucagon () 1 mg IM PRN PRN PRN Reason: Hypoglycemia w/o IV access Hydromorphone HCl (Dilaudid Inj) 0.5 mg IV Q2H PRN PRN Reason: Pain Severe (8-10) Last Admin: 04/11/17 01:39 Dose: 0.5 mg Potassium Chloride 10 meq/ (Premix) 100 mls @ 100 mls/hr IV .PER PROTOCOL PRN; Protocol PRN Reason: Per Protocol Last Infusion: 04/05/17 18:53 Dose: Infused Levofloxacin/Dextrose 750 mg/ (Premix) 150 mls @ 100 mls/hr IV Q48H [facility] Last Infusion: 04/09/17 21:58 Dose: Infused Sodium Chloride (Ns) 1,000 mls @ 75 mls/hr IV .[id number] [facility] Last Admin: 04/11/17 06:45 Dose: 75 mls/hr Ceftriaxone Sodium 1,000 mg/ (Sodium Chloride) 100 mls @ 200 mls/hr IV Q24H [facility] Last Infusion: 04/10/17 13:50 Dose: Infused Methylprednisolone Sodium Succinate 1,000 mg/ Sodium Chloride 108 mls @ 100 mls /hr IV Q24H [facility] Stop: 04/11/17 17:35 Last Infusion: 04/10/17 18:07 Dose: Infused Insulin Human Regular (Humulin R) 0 unit SUBCUT ACHS [facility] PRN Reason: Protocol Last Admin: 04/11/17 10:23 Dose: Not Given Iron/Multivitamins/Folic Acid (Centrum Tab) 1 tablet PO QAM [facility] Last Admin: 04/11/17 10:23 Dose: Not Given Metoprolol Tartrate (Lopressor Tab) 50 mg PO BID [facility] Last Admin: 04/10/17 20:57 Dose: 50 mg Ondansetron HCl (Zofran Inj) 4 mg IV Q4H PRN PRN Reason: Nausea/Vomiting Last Admin: 04/10/17 07:06 Dose: 4 mg Oxycodone/Acetaminophen (Percocet 5-325) 1 tablet PO Q6H PRN PRN Reason: Pain Moderate (4-7) Last Admin: 04/10/17 16:19 Dose: 1 tablet Pantoprazole Sodium (Protonix Inj) 40 mg IV DAILY [facility] Last Admin: 04/11/17 09:58 Dose: 40 mg Petrolatum (Aquaphor) 1 applic TOP DAILY [facility] Last Admin: 04/11/17 10:25 Dose: Not Given Potassium Chloride (K Dur) 20 meq PO .PER PROTOCOL PRN; Protocol PRN Reason: Per Protocol Prednisone () 60 mg PO DAILY [facility] Sodium Hypochlorite (Dakins 1/2 Strength 0.25% Soln) 1 applic TOP DAILY [facility] Last Admin: 04/11/17 10:25 Dose: Not Given Exam (Progress Note) - Constitutional Vitals: Period Temp Pulse Resp BP Sys/Corcoran Pulse Ox Last 24 Hr 97.1 F-97.9 F 71-109 16-20 129-145/55-76 94-99 Exam: General appearance: Elderly. Chronically ill. No acute distress. Appears comfortable. HEENT exam: normal inspection, atraumatic. He has bandage over his right nose and ear where there was previously noted skin lesion and is postop. Neck exam: normal inspection no JVD. No carotid bruit. Trachea midline. Respiratory/lungs exam: clear to auscultation bilaterally and anteriorly good air movement. No rhonchi, stridor, rales, wheeze. Cardiovascular exam: Regular rate and rhythm. No tachycardia, bradycardia, murmur. GI/Abdominal exam: He has a large inguinal hernia present. Normal bowel sounds , soft, nontender. Extremeties/musculoskeletal: Trace edema lower extremities. Bandaged wound right ankle with dressing dry/intact. Neurological exam: alert, oriented X3, no focal deficits. Grossly intact. No resting tremor. Psychiatric exam: normal affect, normal mood. Cognitive function is grossly normal. Patient does not appear anxious or depressed. Skin exam: Bandages over skin lesions of his right nose and ear as well as right ankle that we have noted previously. Result/EKG - Labs CBC & BMP: 04/11/17 07:33 04/11/17 12:10 Lab Results: I have reviewed the past 24 hour labs Labs: Laboratory Results - last 24 hr 04/10/17 04/10/17 04/10/17 12:14 16:20 21:34 WBC RBC Hgb Hct MCV MCH MCHC RDW Plt Count MPV Neut % (Auto) Lymph % (Auto) Cooke % (Auto) Eos % (Auto) Baso % (Auto) Neut # (Auto) Lymph # (Auto) Cooke # (Auto) Eos # (Auto) Baso # (Auto) Total Counted Immature Gran % Nucleated RBC % Immature Gran # Segmented Neutrophils Lymphocytes Monocytes Nucleated RBCs # Smudge Cells Platelet Estimate Hypochromasia Microcytosis Ovalocytes Morphology Comment Haptoglobin Sodium Potassium Chloride Carbon Dioxide Anion Gap BUN Creatinine GFR Calculation BUN/Creatinine Ratio Glucose POC Glucose 127 H 122 H 132 H Calculated Osmolality Calcium Total Bilirubin AST ALT Alkaline Phosphatase Lactate Dehydrogenase Total Protein Albumin Globulin Albumin/Globulin Ratio IgG IgA IgM Complement C3 Complement C4 04/11/17 04/11/17 04/11/17 07:17 07:33 07:33 WBC 51.2 H* RBC 3.37 L Hgb 9.7 L Hct 30.1 L MCV 89.3 MCH 29 MCHC 32.2 RDW 17.9 H Plt Count 321 MPV 9.4 L Neut % (Auto) 14.1 L Lymph % (Auto) 66.6 H Cooke % (Auto) 18.8 H Eos % (Auto) 0.0 Baso % (Auto) 0.2 Neut # (Auto) 7.2 Lymph # (Auto) 34.2 H Cooke # (Auto) 9.6 H Eos # (Auto) 0.0 Baso # (Auto) 0.1 Total Counted 100 Immature Gran % 0.3 Nucleated RBC % 0.0 Immature Gran # 0.17 Segmented Neutrophils 23 L Lymphocytes 74 H Monocytes 3 Nucleated RBCs # 0.00 Smudge Cells Few Platelet Estimate Adequate Hypochromasia 1+ Microcytosis Slight Ovalocytes Slight Morphology Comment Haptoglobin Sodium Potassium Chloride Carbon Dioxide Anion Gap BUN Creatinine GFR Calculation BUN/Creatinine Ratio Glucose POC Glucose 190 H Calculated Osmolality Calcium Total Bilirubin AST ALT Alkaline Phosphatase Lactate Dehydrogenase Total Protein Albumin Globulin Albumin/Globulin Ratio IgG IgA IgM Complement C3 119.0 Complement C4 21.9 04/11/17 04/11/17 04/11/17 07:33 09:09 09:16 WBC RBC Hgb Hct MCV MCH MCHC RDW Plt Count MPV Neut % (Auto) Lymph % (Auto) Cooke % (Auto) Eos % (Auto) Baso % (Auto) Neut # (Auto) Lymph # (Auto) Cooke # (Auto) Eos # (Auto) Baso # (Auto) Total Counted Immature Gran % Nucleated RBC % Immature Gran # Segmented Neutrophils Lymphocytes Monocytes Nucleated RBCs # Smudge Cells Platelet Estimate Hypochromasia Microcytosis Ovalocytes Morphology Comment Haptoglobin 372.0 H Sodium 131 L Potassium 6.8 H* D 6.6 H* Chloride 98 Carbon Dioxide 25 Anion Gap 14.8 BUN 96 H Creatinine 3.80 H GFR Calculation 17 BUN/Creatinine Ratio 25.00 H Glucose 173 H POC Glucose Calculated Osmolality 295.7 Calcium 7.7 L Total Bilirubin 0.70 AST 19 ALT < 6 L Alkaline Phosphatase 175 H Lactate Dehydrogenase 116 Total Protein 5.9 L Albumin 1.5 L Globulin 4.4 H Albumin/Globulin Ratio 0.3 L IgG 1520 IgA 413 H IgM 36 L Complement C3 Complement C4 Quality Measures - VTE Contraindication to Pharmacological VTE Prophylaxis: High Risk of Bleeding Specialty Discharge - Follow Up or Referrals Follow up with: Herminio Rowe MD [Physician] - (Mleody from Dr. Herminio Lopez office will call the patient with appt) ICharles Michael, MD, personally performed the services described in this documentation, ascribed by Connie Casillas RN in my presence, and it is both accurate and complete [id number] .
[2017-04-11] MEDS: oxyCODONE/ACETAMINOPHEN 5-325 MG TABLET PO PRN (15:00)
--- NOTE | 2017-04-11 15:13 | Event Note ---
04/11/2017 Patient was scheduled for surgery today to debride the scrotal area but unfortunately his potassium is up above 6 at this time. We have repeated it 3 times a day remains elevated at this point. I have canceled the surgery and discussed this with the family and hopefully it will be down enough that we can probably look at tomorrow or Tuesday to try to debride this area.
[2017-04-11] MEDS: methylPREDNISolone SOD SUC INJ 1,000 MG in SODIUM CHLORIDE 0.9% 100 ML IV SCH (17:14)
[2017-04-11] MEDS: LEVOFLOXACIN INJ 750 MG in PREMIX 1 EACH IV SCH (20:29)
--- NOTE | 2017-04-11 23:26 | Nephrology Progress Note ---
Nephrology - PN: Subj Interval history: He remains quite weak. He denies shortness of breath. Exam (PN)-Nephrology - Vital Signs Vital signs: Period Temp Pulse Resp BP Sys/Corcoran Pulse Ox Last 24 Hr 96.7 F-97.9 F 71-88 16-20 106-145/58-76 90-99 Exam: ENT: Normal Cardiovascular: Regular rate and rhythm. No murmur rub or gallop Lungs: Clear Extremities: Trace edema - Lab 04/11/17 07:33 04/11/17 12:10 Most recent lab results Calcium 7.7 MG/DL (8.5-10.1) L 04/11/17 07:33 Phosphorus 2.5 MG/DL (2.5-4.9) 04/06/17 05:46 Magnesium 3.0 MG/DL (1.8-2.4) H 04/09/17 04:22 Assessment and Plan (1) Chronic kidney disease, stage III (moderate) Status: Chronic Assessment and plan: 81-year-old man admitted with: * CLL. Followed by Dr. Murry * Pneumonia, right lower lobe. Continue Levaquin. He has small bilateral pleural effusions. Albumin is quite low at 1.6.. Ejection fraction normal * Renal failure. Renal function has worsened. He is on no nephrotoxic medications. He is at high risk for worsening renal function perioperatively, especially if he is transiently hypotensive. * Hyperkalemia. This is improving with Kayexalate * Cellulitis, right leg. Status post debridement * Paroxysmal SVT Current Visit: Yes (2) Cellulitis and abscess of left lower extremity Status: Acute Current Visit: Yes (3) Hypokalemia Status: Acute Current Visit: Yes (4) Leukocytosis Status: Acute Current Visit: Yes (5) Paroxysmal SVT (supraventricular tachycardia) Status: Acute Current Visit: Yes (6) Pneumonia Status: Acute Current Visit: Yes (7) CLL (chronic lymphocytic leukemia) Status: Chronic Current Visit: Yes Specialty Discharge - Follow Up or Referrals Follow up with: Herminio Rowe MD [Physician] - (Melody from Dr. Herminio Lopez office will call the patient with appt)
[2017-04-12] MEDS: ALBUTEROL/IPRATROPIUM 3 ML NEB RESP TX SCH ×7 (00:22→23:00)
[2017-04-12] MEDS: oxyCODONE/ACETAMINOPHEN 5-325 MG TABLET PO PRN ×2 (05:54→21:16)
[2017-04-12 06:31] LABS: Basophils # 0.1 10*3/uL (0.0-0.2); Basophils % 0.1 % (0.0-0.8); Hematocrit 25.9 VOL% (42.0-52.0); Hemoglobin 8.2 GM/DL (14.0-18.0); Immature Granulocytes % 0.2 %; Immature Granulocytes Absolute 0.11 #; Lymphocytes # 34.7 10*3/uL (1.4-4.0); Lymphocytes % 70.6 % (21.2-54.2); Mean Corpuscular HGB Conc 31.7 GM/DL (32-36); Mean Corpuscular Hemoglobin 28 PG (27-34); Mean Corpuscular Volume 88.7 FL (87-102); Mean Platelet Volume 9.2 FL (9.6-12.0); Monocytes # 8.1 10*3/uL (0.11-0.8); Monocytes % 16.6 % (1.7-12.7); Neutrophils # 6.1 10*3/uL (1.4-7.4); Neutrophils % 12.5 % (38.7-73.9); Platelet Count 308 T/CUMM (130-400); Red Blood Count 2.92 MC/CUMM (3.8-5.5); Red Cell Distribution Width 17.8 % (9.3-17.3)
[2017-04-12 06:47] LABS: White Blood Count 49.1 T/CUMM (4-12)
[2017-04-12 07:01] LABS: Lymphocytes 79 % (20-55); Segmented Neutrophils 21 % (50-85); Total Cells Counted 100
[2017-04-12 07:02] LABS: Atypical Lymphocytes Few; Hypochromasia 1+; Microcytosis Slight; Platelet Estimate Adequate; Smudge Cells Few
[2017-04-12 07:09] LABS: Albumin 1.6 G/DL (3.4-5.0); Bilirubin,Total 0.7 MG/DL (0.2-1.0); Calcium 7.3 MG/DL (8.5-10.1); Osmolality,Calculated 303.4 MOS/KG (273-304); Total Protein 5.6 G/DL (6.4-8.3)
[2017-04-12 07:12] LABS: Potassium 6.2 MMOL/L (3.5-5.1)
[2017-04-12] MEDS ORDERED: SODIUM BICARBONATE 50 MEQ/50 ML VIAL IV ONE (07:27)
[2017-04-12] MEDS ORDERED: INSULIN REGULAR 100 UNIT/ML IV ONE (07:28)
[2017-04-12] MEDS ORDERED: DEXTROSE 50% 25 GM/50 ML VIAL IV ONE (07:29)
[2017-04-12] MEDS ORDERED: SODIUM BICARB IV ONE (08:00)
[2017-04-12] MEDS ORDERED: DEXTROSE 5% IV ONE (08:00)
--- NOTE | 2017-04-12 08:49 | Hospitalist Progress Note ---
Assessment and Plan (1) Abscess of right external ear Status: Acute Assessment and plan: (1) Abscess of right external ear Status: Acute Assessment and plan: MRSE cultured. There is no surrounding cellulitis. Recommendations: Continue local wound care. ID is following contiune antbx Current Visit: Yes (2) Cellulitis and abscess of left lower extremity Status: Acute Assessment and plan: broaden the coverage of antbx add fortaz and flagyl Current Visit: Yes (3) Chronic kidney disease, stage III (moderate) Status: Chronic Current Visit: Yes (4) Inguinal hernia Status: Acute Current Visit: Yes Qualifiers: Laterality: unspecified laterality Recurrence: non-recurrent (5) Pneumonia Status: Acute Assessment and plan: Community-acquired pneumonia. Infiltrate improved since admission. Recommendations: contiune iv antbx Current Visit: Yes (6) CLL (chronic lymphocytic leukemia) Status: Chronic Current Visit: Yes 7, necrosis and gangrene of scrotum, schedule for surgical debridement today 8, hyperkalemia sec to renal failure , will correct with insulin and D50 and iv bicarb Current Visit: Yes Hospitalist: Subjective Interval history: no new complaint has multiple necrotic skin lesion as well as gangrene of scrotum schedule for surgical debridement today Exam - Constitutional Vitals: Period Temp Pulse Resp BP Sys/Corcoran Pulse Ox Last 24 Hr 96.1 F-97.9 F 75-85 16-20 106-133/52-70 10-100 heent, pearle neck, supple. chest decerase breath sounds at the bases [facility], s1 s2. 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 Herminio Lopez office will call the patient with appt)
[2017-04-12] MEDS: HYDROmorphone 2 MG/1 ML VIAL IV PRN ×2 (09:20→22:27)
--- NOTE | 2017-04-12 09:38 | Oncology Progress Note ---
Oncology Subjective PN Interval history: Mr. Antonio is critically ill with infections and with cardiovascular problems and with cellulitis. He is extremely elderly and debilitated with multiple problems including chronic lymphocytic leukemia. However his CLL remains early and does not need treatment. His creatinine is rising. Is 4.1. He continues to have hyperkalemia. He has progressive renal failure. We have checked immunoglobulins and we have checked complement to be sure that he is not immunosuppressed by low complement or by hyperglobulinemia, neither of which are present. His prognosis is grave due to other disease processes than his chronic lymphocytic leukemia. Mr. Antonio's CLL is relatively stable. His white cell count is 49,100 with an absolute neutrophil count 6100. His hemoglobin is down to 8.2 and I am going to order blood transfusion. His platelet count is 308, 000. Exam - Constitutional Vitals: Period Temp Pulse Resp BP Sys/Corcoran Pulse Ox Last 24 Hr 96.1 F-97.9 F 75-85 16-20 106-133/52-70 10-100 Results - Labs CBC & BMP: 04/12/17 06:09 04/12/17 09:15 Quality Measures - VTE Contraindication to Pharmacological VTE Prophylaxis: High Risk of Bleeding Specialty Discharge - Follow Up or Referrals Follow up with: Herminio Rowe MD [Physician] - (Melody from Dr. Herminio Lopez office will call the patient with appt)
[2017-04-12 10:36] LABS: Immuno Free Light Chain Kappa 7.63 MG/DL (0.33-1.94); Immuno Free Light Chain Lambda 19.62 MG/DL (0.57-2.63); Immuno Free Light Chain Ratio 0.39 MG/DL (0.26-1.65)
--- NOTE | 2017-04-12 10:52 | Nephrology Progress Note ---
Nephrology - PN: Subj Interval history: He denies shortness of breath or pain. No nausea Exam (PN)-Nephrology - Vital Signs Vital signs: Period Temp Pulse Resp BP Sys/Corcoran Pulse Ox Last 24 Hr 96.1 F-97.9 F 75-85 16-20 106-133/52-70 10-100 Exam: Gen.: Alert and oriented x3. ENT: Pupils equal round reactive to light. EOMs intact. Neck: Supple. No JVD or bruit. Cardiovascular: Regular rate and rhythm. No murmur rub or gallop Lungs: Clear Abdomen: Soft. Nontender. Positive bowel sounds. No organomegaly Extremities: Trace edema. Lower legs dressed - Lab 04/12/17 06:09 04/12/17 09:15 Most recent lab results Calcium 7.3 MG/DL (8.5-10.1) L 04/12/17 06:09 Phosphorus 2.5 MG/DL (2.5-4.9) 04/06/17 05:46 Magnesium 3.0 MG/DL (1.8-2.4) H 04/09/17 04:22 Assessment and Plan (1) Chronic kidney disease, stage III (moderate) Status: Chronic Assessment and plan: 81-year-old man admitted with: * CLL. Followed by Dr. Murry * Pneumonia, right lower lobe. Continue Levaquin. He has small bilateral pleural effusions. Albumin is quite low at 1.6.. Ejection fraction normal * Renal failure. Renal function worse. I do not think he is stable enough for additional surgery unless it is emergent. * Hyperkalemia. Improved. Bicarbonate, D50 and insulin added * Cellulitis, right leg. Status post debridement * Paroxysmal SVT * Anemia. Transfusion today Current Visit: Yes (2) Cellulitis and abscess of left lower extremity Status: Acute Current Visit: Yes (3) Hypokalemia Status: Acute Current Visit: Yes (4) Leukocytosis Status: Acute Current Visit: Yes (5) Paroxysmal SVT (supraventricular tachycardia) Status: Acute Current Visit: Yes (6) Pneumonia Status: Acute Current Visit: Yes (7) CLL (chronic lymphocytic leukemia) Status: Chronic Current Visit: Yes Specialty Discharge - Follow Up or Referrals Follow up with: Herminio Rowe MD [Physician] - (Melody from Dr. Herminio Lopez office will call the patient with appt)
[2017-04-12] MEDS: SKIN HEALING OINT (AQUAPHOR) 50 GM TUBE TOP SCH (10:59)
[2017-04-12] MEDS: BACITRACIN OINT 0.9 GM PACK TOP SCH (10:59)
[2017-04-12] MEDS: INSULIN REGULAR 100 UNIT/ML SUBCUT SCH ×4 (10:59→20:27)
[2017-04-12] MEDS: SODIUM HYPOCHLORITE 0.25% IRRIG 473 ML BOTTLE TOP SCH (11:00)
[2017-04-12] MEDS: MULTIVITAMIN (CENTRUM) TABLET PO SCH (11:00)
[2017-04-12] MEDS: GENTAMICIN 0.1% OINT 15 GM TUBE TOP SCH ×3 (11:00→21:09)
[2017-04-12] MEDS: PANTOPRAZOLE 40 MG VIAL IV SCH (11:25)
[2017-04-12] MEDS: metroNIDAZOLE INJ 500 MG in PREMIX 1 EACH IV SCH ×2 (11:25→18:34)
[2017-04-12] MEDS: METOPROLOL TARTRATE 50 MG TABLET PO SCH ×2 (11:25→20:27)
--- NOTE | 2017-04-12 11:32 | General Surgery Progress Note ---
Assessment and Plan - Time spent with patient Time spent with patient: Less than 30 minutes (1) Cellulitis and abscess of left lower extremity Status: Acute Assessment and plan: 04/12/17 Wounds of right face and right lower extremity are stable. Cultures have been addressed-he is on multiple antibiotics and Flagyl. Path suggests pyoderma gangrenosum, an autoimmune condition and primary treatment is systemic steroids, which he is currently receiving. Left scrotal wound with residual necrotic tissue but no definite progression. He is still hyperkalemic and at this point, not a surgical candidate for further debridement so we will continue with conservative care. Current Visit: Yes Subjective Patient reports: Present: no new complaints, tolerating a regular diet Exam - Constitutional Vitals: Period Temp Pulse Resp BP Sys/Corcoran Pulse Ox Last 24 Hr 96.1 F-97.6 F 67-85 16-20 106-133/52-70 10-100 General appearance: disheveled, other (Mr Antonio is pleasantly confused; he is alone today but in no acute distress. ) - Head Head exam: Present: normocephalic - ENT ENT exam: Present: other (Right lateral nose wound is clean and has a pale base. I see no new ischemic changes, no redness or drainage. ) Ear exam: Present: other (Right preauricular wound is clean; there is no ischemic progression seen. ) - Extremities Exam Extremities exam: Present: other (Right lower leg wounds are clean. There is no new progession of skin loss or purpuric change, no purulent drainage, no necrotic tissue present. ) - Skin Skin exam: Present: other (Scrotal skin with necrotic tissue present; there does not seem to be any additional enlargement or progression.) Results - Labs CBC & BMP: 04/12/17 06:09 04/12/17 09:15 Lab Results: I have reviewed the past 24 hour labs Quality Measures - VTE Contraindication to Pharmacological VTE Prophylaxis: High Risk of Bleeding Specialty Discharge - Follow Up or Referrals Follow up with: Herminio Rowe MD [Physician] - (Melody from Dr. Herminio Lopez office will call the patient with appt)
--- NOTE | 2017-04-12 15:19 | Infectious Disease Progress ---
Assessment and Plan (1) Abscess of right external ear Status: Acute Assessment and plan: This was debrided and MRSLisette cultured. There is no surrounding cellulitis. Recommendations: Continue local wound care. Current Visit: Yes (2) Cellulitis and abscess of left lower extremity Status: Acute Assessment and plan: Continue ceftriaxone. He is getting steroids for possible pyoderma gangrenosum. Continue wound care. Current Visit: Yes (3) Chronic kidney disease, stage III (moderate) Status: Chronic Current Visit: Yes (4) Inguinal hernia Status: Acute Current Visit: Yes Qualifiers: Laterality: unspecified laterality Recurrence: non-recurrent (5) Pneumonia Status: Acute Assessment and plan: Community-acquired pneumonia. Infiltrate improved since admission. Recommendations: Continue ceftriaxone and levofloxacin Current Visit: Yes (6) CLL (chronic lymphocytic leukemia) Status: Chronic Current Visit: Yes Infectious Disease - PN: Subj Interval history: Patient generally okay until by wound care that his wounds are improving. His pathology came back as inflammatory changes with paraneoplastic syndromes to be considered such as pyoderma gangrenosum. Patient has not had fever. He says he is feeling a little better. Infectious Disease Exam (PN) - Constitutional Vitals: Temp Pulse Resp BP Pulse Ox 97.6 F 75 18 123/52 99 04/12/17 12:00 04/12/17 14:20 04/12/17 14:20 04/12/17 12:00 04/12/17 14:20 General appearance: disheveled, other (Mr Antonio is pleasantly confused; he is alone today but in no acute distress. ) Exam: General appearance: Looks a bit more alert and comfortable today - Eye Eye exam: Present: EOMI. no icterus Pupils: Present: JOSETTE - ENT ENT exam: Ulcerations noted on hard palate and also about severely carious teeth in the upper gums - Respiratory Respiratory exam: vesicular BS, no crepitations or wheezes - Cardiovascular Cardiovascular exam: regular rate and rhythm, no murmurs - GI/Abdominal GI/Abdominal exam: normal bowel sounds, soft, non-tender, no organomegaly or mass - Extremities Exam Extremities exam: Right leg wound bandaged - Skin Skin exam: Necrotic looking ulcer to the anterior aspect of the right ear looks a little better today, wounds on the service of scrotum onto legs bandaged Results - Labs CBC & BMP: 04/12/17 06:09 04/12/17 09:15 Lab Results: I have reviewed the past 24 hour labs Quality Measures - VTE Contraindication to Pharmacological VTE Prophylaxis: High Risk of Bleeding Specialty Discharge - Follow Up or Referrals Follow up with: Herminio Rowe MD [Physician] - (Melody from Dr. Herminio Lopez office will call the patient with appt)
--- NOTE | 2017-04-12 15:29 | Cardiology Progress Note ---
I, Connie Casillas RN, am scribing for, and in the presence of, Christoph Soto MD 15:29. Assessment and Plan - Time spent with patient Time spent with patient: Greater than 30 minutes (1) Paroxysmal SVT (supraventricular tachycardia) Status: Acute Assessment and plan: This appears to have resolved at this time after addition of beta-johnathon. No paroxysmal SVT for 6+ days now. His cardiac status appears to be stable/well compensated. I am going to drop off of his case at this time. Please call if we can be of further assistance. Current Visit: Yes (2) Hyperkalemia Status: Acute Assessment and plan: Patient has received Kayexalate, insulin, sodium bicarb. Hyperkalemia some improved today, and K+ 5.7 currently. No potassium supplements. Current Visit: Yes (3) Pneumonia Status: Acute Assessment and plan: Patient is on appropriate IV antibiotics. Will defer to hospital medicine. This seems to be improving. Current Visit: Yes (4) Scrotal ulcer Status: Acute Assessment and plan: This is been evaluated by surgical services. Surgical debridement canceled due to persistent hyperkalemia. Patient has been treated with conservative medical management at this time. Current Visit: Yes (5) Congestive heart failure Status: Chronic Assessment and plan: Clinically, appears to be well compensated on his current medical regimen. Current Visit: Yes (6) CLL (chronic lymphocytic leukemia) Status: Chronic Assessment and plan: Diagnosis August 2016, and he is followed by Dr. Murry. Current Visit: Yes (7) CKD (chronic kidney disease) stage 4, GFR 15-29 ml/min Status: Acute Assessment and plan: History of renal insufficiency. Since hospital admission, renal function has worsened with creatinine and BUN currently 4.1 and 106 respectively. Avoiding nephrotoxic agents. Current Visit: Yes Cardiology - PN: Subj Interval history: [employer]IMARY [employer] WORKER: DR. ZEPEDA (NEW) SUMMARY: Mr. Antonio is an 81-year-old male with no significant previous cardiac history. Past medical history includes chronic lymphocytic leukemia and renal insufficiency, and he is routinely followed by Dr. Rigoberto Murry. Patient was accepted to [facility] in transfer from [facility] for shortness of breath and chest pain. EKG and cardiac biomarkers benign for acute ischemic finding. Chest x-ray revealed right basilar pneumonia, and BNP 433. He was admitted per hospital medicine, and cardiology was initially asked to see for troponin level of 0.415. Troponin level has since trended down, but he has had some paroxysmal SVT with pulse rate 140s-150s. This has responded well to the addition of beta-johnathon, and pulse rates have been regular for 5-6 days now. There has been question as to whether or not there is a component of congestive heart failure, but there have been no significant clinical findings to support this. Echocardiogram on April 03 with normal LV size and systolic function and EF 55-60%, mild to moderate TR, and mildly elevated right-sided pressures. Patient has also received treatment for cellulitis of right leg. March: Mr. Antonio is resting quietly this afternoon. No acute distress. Denies chest pain or dyspnea. Debridement of scrotal abscess yesterday canceled due to persistent hyperkalemia throughout the day despite Kayexalate dose, insulin, and sodium bicarb. Worsening renal failure with creatinine up to 4.1, BUN 106. Current potassium level 5.7. H&H 8.2/25.9. Systolic BP 115-130 mmHg. EKG demonstrates sinus rhythm, T waves less peaked. He has had no further SVT or other arrhythmia. Current Medications Acetaminophen (Tylenol Tab) 650 mg PO Q4H PRN PRN Reason: Fever, Headache, Mild Pain Albuterol/Ipratropium (Duoneb) 3 ml RESP TX RT Q4H [facility] Last Admin: 04/12/17 10:48 Dose: 3 ml Bacitracin () 1 applic TOP DAILY [facility] Last Admin: 04/12/17 10:59 Dose: Not Given Dextrose/Water (D50) 25 gm IV PRN PRN PRN Reason: Hypoglycemia with IV access Ergocalciferol (Drisdol) 50,000 unit PO Q7D [facility] Stop: 05/25/17 10:00 Last Admin: 04/06/17 10:28 Dose: 50,000 unit Gentamicin Sulfate (Garamycin 0.1% Oint) 1 applic TOP TID [facility] Last Admin: 04/12/17 11:00 Dose: Not Given Glucagon () 1 mg IM PRN PRN PRN Reason: Hypoglycemia w/o IV access Hydromorphone HCl (Dilaudid Inj) 0.5 mg IV Q2H PRN PRN Reason: Pain Severe (8-10) Last Admin: 04/12/17 09:20 Dose: 0.5 mg Potassium Chloride 10 meq/ (Premix) 100 mls @ 100 mls/hr IV .PER PROTOCOL PRN; Protocol PRN Reason: Per Protocol Last Infusion: 04/05/17 18:53 Dose: Infused Levofloxacin/Dextrose 750 mg/ (Premix) 150 mls @ 100 mls/hr IV Q48H [facility] Last Infusion: 04/11/17 22:47 Dose: Infused Sodium Chloride (Ns) 1,000 mls @ 75 mls/hr IV .[id number] [facility] Last Admin: 04/11/17 22:44 Dose: 75 mls/hr Ceftazidime 1,000 mg/ Sodium (Chloride) 100 mls @ 200 mls/hr IV Q24H [facility] Metronidazole/Sodium Chloride (500 mg/ Premix) 100 mls @ 100 mls/hr IV Q8H [facility] Last Admin: 04/12/17 11:25 Dose: 100 mls/hr Insulin Human Regular (Humulin R) [facility] PR[facility] Reason: Protocol Last Admin: 04/12/17 11:43 Dose: 8 unit Iron/Multivitamins/Folic Acid (Centrum Tab) 1 tablet PO QAM [facility] Last Admin: 04/12/17 11:00 Dose: Not Given Metoprolol Tartrate (Lopressor Tab) 50 mg PO BID [facility] Last Admin: 04/12/17 11:25 Dose: 50 mg Ondansetron HCl (Zofran Inj) 4 mg IV Q4H PRN PRN Reason: Nausea/Vomiting Last Admin: 04/10/17 07:06 Dose: 4 mg Oxycodone/Acetaminophen (Percocet 5-325) 1 tablet PO Q6H PRN PRN Reason: Pain Moderate (4-7) Last Admin: 04/12/17 05:54 Dose: 1 tablet Pantoprazole Sodium (Protonix Inj) 40 mg IV DAILY [facility] Last Admin: 04/12/17 11:25 Dose: Not Given Petrolatum (Aquaphor) 1 applic TOP DAILY [facility] Last Admin: 04/12/17 10:59 Dose: Not Given Potassium Chloride (K Dur) 20 meq PO .PER PROTOCOL PRN; Protocol PRN Reason: Per Protocol Prednisone () 60 mg PO DAILY [facility] Sodium Hypochlorite (Dakins 1/2 Strength 0.25% Soln) 1 applic TOP DAILY [facility] Last Admin: 04/12/17 11:00 Dose: Not Given Exam (Progress Note) - Constitutional Vitals: Period Temp Pulse Resp BP Sys/Corcoran Pulse Ox Last 24 Hr 96.1 F-97.6 F 67-85 16-20 106-133/52-70 10-100 Exam: General appearance: Elderly. Chronically ill. No acute distress. Appears comfortable. HEENT exam: normal inspection, atraumatic. He has bandage over his right nose and ear where there was previously noted skin lesion and is postop. Neck exam: normal inspection no JVD. No carotid bruit. Trachea midline. Respiratory/lungs exam: clear to auscultation bilaterally and anteriorly good air movement. No rhonchi, stridor, rales, wheeze. Cardiovascular exam: Regular rate and rhythm. No tachycardia, bradycardia, murmur. GI/Abdominal exam: He has a large inguinal hernia present. Normal bowel sounds , soft, nontender. Extremeties/musculoskeletal: Trace edema lower extremities. Bandaged wound right ankle with dressing dry/intact. Neurological exam: alert, oriented X3, no focal deficits. Grossly intact. No resting tremor. Psychiatric exam: normal affect, normal mood. Cognitive function is grossly normal. Patient does not appear anxious or depressed. Skin exam: Bandages over skin lesions of his right nose and ear as well as right ankle Result/EKG - Labs CBC & BMP: 04/12/17 06:09 04/12/17 09:15 Lab Results: I have reviewed the past 24 hour labs Labs: Laboratory Results - last 24 hr 04/11/17 04/11/17 04/11/17 09:09 17:16 19:57 WBC RBC Hgb Hct MCV MCH MCHC RDW Plt Count MPV Neut % (Auto) Lymph % (Auto) [place] % (Auto) Eos % (Auto) Baso % (Auto) Neut # (Auto) Lymph # (Auto) [place] # (Auto) Eos # (Auto) Baso # (Auto) Total Counted Immature Gran % Nucleated RBC % Immature Gran # Segmented Neutrophils Lymphocytes Nucleated RBCs # Atypical Lymphocytes Smudge Cells Platelet Estimate Hypochromasia Microcytosis Sodium Potassium Chloride Carbon Dioxide Anion Gap BUN Creatinine GFR Calculation BUN/Creatinine Ratio Glucose POC Glucose 211 H 308 H Calculated Osmolality Calcium Total Bilirubin AST ALT Alkaline Phosphatase Lactate Dehydrogenase Total Protein Albumin Globulin Albumin/Globulin Ratio BARAK Interpretation Free [place] Light Chains 7.63 H Free Lambda Light Chain 19.62 H Free [place]/Lambda Ratio 0.39 04/12/17 04/12/17 04/12/17 06:09 06:09 07:39 WBC 49.1 H* RBC 2.92 L Hgb 8.2 L Hct 25.9 L MCV 88.7 MCH 28 MCHC 31.7 L RDW 17.8 H Plt Count 308 MPV 9.2 L Neut % (Auto) 12.5 L Lymph % (Auto) 70.6 H [place] % (Auto) 16.6 H Eos % (Auto) 0.0 Baso % (Auto) 0.1 Neut # (Auto) 6.1 Lymph # (Auto) 34.7 H [place] # (Auto) 8.1 H Eos # (Auto) 0.0 Baso # (Auto) 0.1 Total Counted 100 Immature Gran % 0.2 Nucleated RBC % 0.0 Immature Gran # 0.11 Segmented Neutrophils 21 L Lymphocytes 79 H Nucleated RBCs # 0.00 Atypical Lymphocytes Few Smudge Cells Few Platelet Estimate Adequate Hypochromasia 1+ Microcytosis Slight Sodium 133 L Potassium 6.2 H* Chloride 99 Carbon Dioxide 24 Anion Gap 16.2 H BUN 106 H D Creatinine 4.10 H GFR Calculation 15 BUN/Creatinine Ratio 25.00 H Glucose 192 H POC Glucose 239 H Calculated Osmolality 303.4 Calcium 7.3 L Total Bilirubin 0.70 AST 29 ALT 10 L Alkaline Phosphatase 149 H Lactate Dehydrogenase 109 Total Protein 5.6 L Albumin 1.6 L Globulin 4.0 H Albumin/Globulin Ratio 0.4 L BARAK Interpretation Free [place] Light Chains Free Lambda Light Chain Free [place]/Lambda Ratio 04/12/17 04/12/17 09:15 11:37 WBC RBC Hgb Hct MCV MCH MCHC RDW Plt Count MPV Neut % (Auto) Lymph % (Auto) [place] % (Auto) Eos % (Auto) Baso % (Auto) Neut # (Auto) Lymph # (Auto) [place] # (Auto) Eos # (Auto) Baso # (Auto) Total Counted Immature Gran % Nucleated RBC % Immature Gran # Segmented Neutrophils Lymphocytes Nucleated RBCs # Atypical Lymphocytes Smudge Cells Platelet Estimate Hypochromasia Microcytosis Sodium Potassium 5.7 H Chloride Carbon Dioxide Anion Gap BUN Creatinine GFR Calculation BUN/Creatinine Ratio Glucose POC Glucose 302 H Calculated Osmolality Calcium Total Bilirubin AST ALT Alkaline Phosphatase Lactate Dehydrogenase Total Protein Albumin Globulin Albumin/Globulin Ratio BARAK Interpretation Free [place] Light Chains Free Lambda Light Chain Free [place]/Lambda Ratio - EKG EKG results: interpreted by me, no acute changes EKG shows: sinus rhythm Quality Measures - VTE Contraindication to Pharmacological VTE Prophylaxis: High Risk of Bleeding Specialty Discharge - Follow Up or Referrals Follow up with: Herminio Rowe MD [Physician] - (Melody from Dr. Herminio Lopez office will call the patient with appt) Charles Méndez Michael, MD, personally performed the services described in this documentation, ascribed by Connie Casillas RN in my presence, and it is both accurate and complete 529 .
[2017-04-12] MEDS ORDERED: SODIUM POLYSTYRENE SULFATE 15 GM/60 ML BOTTLE PO ONE (16:37)
[2017-04-12] MEDS: predniSONE 20 MG TABLET PO SCH (17:00)
[2017-04-12] MEDS: SODIUM CHLORIDE 0.9% 1,000 ML IV SCH (20:31)
[2017-04-13] MEDS: SODIUM CHLORIDE 0.9% 1,000 ML IV SCH ×2 (03:03→14:27)
[2017-04-13] MEDS: metroNIDAZOLE INJ 500 MG in PREMIX 1 EACH IV SCH ×4 (03:05→22:15)
[2017-04-13] MEDS: ALBUTEROL/IPRATROPIUM 3 ML NEB RESP TX SCH ×6 (03:50→23:43)
--- NOTE | 2017-04-13 07:46 | Oncology Progress Note ---
Oncology Subjective PN Interval history: He evidently got 2 units of packed red cells yesterday. His order for CBCs fell off so I am ordering a CBC as well as a CMP now. Apparently I did not order the blood transfusions yesterday. I am going to go ahead and order them for today. He is extremely weak and debilitated from multiple disease processes and he has horrible cellulitis of the scrotal. 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 This is going to make treatment of it and the infection exceedingly difficult. Although his CLL does not need treatment, it does affect his immune system and make it more difficult for him to clear infections. Exam - Constitutional Vitals: Period Temp Pulse Resp BP Sys/Corcoran Pulse Ox Last 24 Hr 97.2 F-97.9 F 67-79 16-20 123-131/52-69 94-99 Results - Labs CBC & BMP: 04/12/17 06:09 04/12/17 09:15 Quality Measures - VTE Contraindication to Pharmacological VTE Prophylaxis: High Risk of Bleeding Specialty Discharge - Follow Up or Referrals Follow up with: Herminio Rowe MD [Physician] - (Melody from Dr. Herminio Lopez office will call the patient with appt)
[2017-04-13] MEDS ORDERED: SODIUM CHLORIDE 0.9% 250 ML IV PRN (08:06)
[2017-04-13 08:10] LABS: Basophils % 0.1 % (0.0-0.8); Hematocrit 26.1 VOL% (42.0-52.0); Hemoglobin 8.4 GM/DL (14.0-18.0); Immature Granulocytes % 0.2 %; Immature Granulocytes Absolute 0.09 #; Lymphocytes # 34.4 10*3/uL (1.4-4.0); Lymphocytes % 69.5 % (21.2-54.2); Mean Corpuscular HGB Conc 32.2 GM/DL (32-36); Mean Corpuscular Hemoglobin 29 PG (27-34); Mean Corpuscular Volume 89.4 FL (87-102); Mean Platelet Volume 9.4 FL (9.6-12.0); Monocytes # 9.3 10*3/uL (0.11-0.8); Monocytes % 18.8 % (1.7-12.7); Neutrophils # 5.6 10*3/uL (1.4-7.4); Neutrophils % 11.4 % (38.7-73.9); Platelet Count 274 T/CUMM (130-400); Red Blood Count 2.92 MC/CUMM (3.8-5.5); Red Cell Distribution Width 17.6 % (9.3-17.3)
[2017-04-13 08:13] LABS: White Blood Count 49.5 T/CUMM (4-12)
[2017-04-13 08:31] LABS: Atypical Lymphocytes Few; Hypochromasia 1+; Lymphocytes 83 % (20-55); Ovalocytes Slight; Platelet Estimate Adequate; Segmented Neutrophils 16 % (50-85); Smudge Cells Few; Total Cells Counted 100
[2017-04-13 08:32] LABS: Microcytosis Slight
[2017-04-13 08:42] LABS: Albumin 1.7 G/DL (3.4-5.0); Bilirubin,Total 0.6 MG/DL (0.2-1.0); Calcium 7.5 MG/DL (8.5-10.1); Osmolality,Calculated 302.5 MOS/KG (273-304); Potassium 5.5 MMOL/L (3.5-5.1); Total Protein 5.5 G/DL (6.4-8.3)
[2017-04-13] MEDS: PANTOPRAZOLE 40 MG VIAL IV SCH (09:28)
[2017-04-13] MEDS: predniSONE 20 MG TABLET PO SCH (09:29)
[2017-04-13] MEDS: MULTIVITAMIN (CENTRUM) TABLET PO SCH (09:29)
[2017-04-13] MEDS: ERGOCALCIFEROL 50,000 UNIT CAPSULE PO SCH (09:29)
[2017-04-13] MEDS: METOPROLOL TARTRATE 50 MG TABLET PO SCH ×2 (09:30→21:05)
[2017-04-13] MEDS: INSULIN REGULAR 100 UNIT/ML SUBCUT SCH ×4 (09:31→22:11)
[2017-04-13] MEDS: SODIUM HYPOCHLORITE 0.25% IRRIG 473 ML BOTTLE TOP SCH (09:32)
[2017-04-13] MEDS: SKIN HEALING OINT (AQUAPHOR) 50 GM TUBE TOP SCH (09:32)
[2017-04-13] MEDS: BACITRACIN OINT 0.9 GM PACK TOP SCH (09:33)
[2017-04-13] MEDS: oxyCODONE/ACETAMINOPHEN 5-325 MG TABLET PO PRN ×2 (11:30→22:13)
--- NOTE | 2017-04-13 11:38 | Infectious Disease Progress ---
Assessment and Plan (1) Abscess of right external ear Status: Acute Assessment and plan: This was debrided and MRSE cultured. There is no surrounding cellulitis. Recommendations: Continue local wound care. Current Visit: Yes (2) Cellulitis and abscess of left lower extremity Status: Acute Assessment and plan: Continue ceftriaxone for a few more days. He is getting steroids for possible pyoderma gangrenosum. Wound care is the most important at this time and will be continued. Current Visit: Yes (3) Chronic kidney disease, stage III (moderate) Status: Chronic Current Visit: Yes (4) Inguinal hernia Status: Acute Current Visit: Yes Qualifiers: Laterality: unspecified laterality Recurrence: non-recurrent (5) Pneumonia Status: Acute Assessment and plan: Community-acquired pneumonia. Infiltrate improved since admission. Recommendations: Continue ceftriaxone and levofloxacin until the end of the week Current Visit: Yes (6) CLL (chronic lymphocytic leukemia) Status: Chronic Current Visit: Yes Infectious Disease - PN: Subj Interval history: Patient is doing fairly okay today, no new issues per the nurses. He has been afebrile. Infectious Disease Exam (PN) - Constitutional Vitals: Temp Pulse Resp BP Pulse Ox 97.6 F 68 20 129/64 98 04/13/17 08:31 04/13/17 10:27 04/13/17 10:27 04/13/17 08:31 04/13/17 10:27 General appearance: disheveled, other (Mr Antonio is pleasantly confused; he is alone today but in no acute distress. ) Exam: General appearance: Alert and comfortable - Eye Eye exam: Present: EOMI. no icterus Pupils: Present: JOSETTE - ENT ENT exam: Ulcerations noted on hard palate and also about severely carious teeth in the upper gums - Respiratory Respiratory exam: vesicular BS, no crepitations or wheezes - Cardiovascular Cardiovascular exam: regular rate and rhythm, no murmurs - GI/Abdominal GI/Abdominal exam: normal bowel sounds, soft, non-tender, no organomegaly or mass - Extremities Exam Extremities exam: Right leg wound bandaged - Skin Skin exam: Photos of the ulcers noted in chart those on the right leg are quite extensive but there is no surrounding erythema Results - Labs CBC & BMP: 04/13/17 08:05 04/13/17 08:05 Lab Results: I have reviewed the past 24 hour labs Quality Measures - VTE Contraindication to Pharmacological VTE Prophylaxis: High Risk of Bleeding Specialty Discharge - Follow Up or Referrals Follow up with: Herminio Rowe MD [Physician] - (Melody from Dr. Herminio Lopez office will call the patient with appt)
[2017-04-13] MEDS ORDERED: SODIUM POLYSTYRENE SULFATE 15 GM/60 ML BOTTLE PO ONE (12:41)
[2017-04-13] MEDS: HYDROmorphone 2 MG/1 ML VIAL IV PRN ×2 (13:31→21:13)
[2017-04-13] MEDS: GENTAMICIN 0.1% OINT 15 GM TUBE TOP SCH ×3 (14:27→21:17)
--- NOTE | 2017-04-13 16:25 | Hospitalist Progress Note ---
Assessment and Plan (1) Pyoderma gangrenosum Status: Acute Assessment and plan: steroids Current Visit: Yes (2) CLL (chronic lymphocytic leukemia) Status: Chronic Current Visit: Yes (3) Cellulitis and abscess of left lower extremity Status: Acute Assessment and plan: ID assisting Rocephin Current Visit: Yes (4) Abscess of right external ear Status: Acute Current Visit: Yes (5) Inguinal hernia Status: Acute Current Visit: Yes Qualifiers: Laterality: unspecified laterality Recurrence: non-recurrent (6) Chronic kidney disease, stage III (moderate) Status: Chronic Current Visit: Yes (7) Scrotal ulcer Status: Acute Current Visit: Yes (8) Pneumonia Status: Acute Assessment and plan: Rocephin and levaquin until the end of the week Current Visit: Yes Hospitalist: Subjective Interval history: No acute events overnight. Patient receiving blood transfusion today. He has been accepted at [facility]. Possible transfer tomorrow. Discussion with patient and his son about code status, they want the patient to be Do Not Resuscitate. Exam - Constitutional Vitals: Period Temp Pulse Resp BP Sys/Corcoran Pulse Ox Last 24 Hr 97.2 F-98.3 F 68-79 16-20 129-140/63-83 92-100 General appearance: normal weight - Head Head exam: Present: normocephalic, atraumatic - Eye Eye exam: Present: EOMI Pupils: Present: JOSETTE - ENT ENT exam: Present: normal exam - Neck Neck exam: Present: normal inspection - Respiratory Respiratory exam: Present: clear to auscultation bilaterally - Cardiovascular Cardiovascular exam: Present: regular rate and rhythm - GI/Abdominal GI/Abdominal exam: Present: normal bowel sounds, soft. Absent: tenderness, rebound - Extremities Exam Extremities exam: Present: normal inspection - Back Exam Back exam: Present: normal inspection - Neurological Exam Neurological exam: Present: alert, oriented X3 - Psychiatric Psychiatric exam: Present: normal affect, normal mood - Skin Skin exam: Present: warm, intact Results - Labs CBC & BMP: 04/13/17 08:05 04/13/17 08:05 Quality Measures - VTE Contraindication to Pharmacological VTE Prophylaxis: High Risk of Bleeding Specialty Discharge - Follow Up or Referrals Follow up with: Herminio Rowe MD [Physician] - (Melody from Dr. Herminio Lopez office will call the patient with appt)
[2017-04-13] MEDS: LEVOFLOXACIN INJ 750 MG in PREMIX 1 EACH IV SCH (23:43)
[2017-04-14] MEDS: HYDROmorphone 2 MG/1 ML VIAL IV PRN ×2 (00:49→03:16)
[2017-04-14] MEDS: ALBUTEROL/IPRATROPIUM 3 ML NEB RESP TX SCH ×4 (03:16→15:19)
[2017-04-14 05:36] LABS: Hematocrit 32.5 VOL% (42.0-52.0); Hemoglobin 10.4 GM/DL (14.0-18.0); Immature Granulocytes % 0.3 %; Immature Granulocytes Absolute 0.19 #; Lymphocytes # 42.9 10*3/uL (1.4-4.0); Lymphocytes % 68.6 % (21.2-54.2); Mean Corpuscular Hemoglobin 28 PG (27-34); Mean Corpuscular Volume 88.8 FL (87-102); Mean Platelet Volume 9.4 FL (9.6-12.0); Monocytes # 11.5 10*3/uL (0.11-0.8); Monocytes % 18.4 % (1.7-12.7); Neutrophils % 12.7 % (38.7-73.9); Platelet Count 270 T/CUMM (130-400); Red Blood Count 3.66 MC/CUMM (3.8-5.5); Red Cell Distribution Width 17.2 % (9.3-17.3)
[2017-04-14 05:42] LABS: White Blood Count 62.6 T/CUMM (4-12)
[2017-04-14] MEDS: SODIUM CHLORIDE 0.9% 1,000 ML IV SCH ×2 (05:45→16:27)
[2017-04-14] MEDS: metroNIDAZOLE INJ 500 MG in PREMIX 1 EACH IV SCH ×2 (05:46→16:27)
[2017-04-14 06:07] LABS: Lymphocytes 74 % (20-55); Segmented Neutrophils 22 % (50-85); Total Cells Counted 100
[2017-04-14 06:08] LABS: Hypochromasia 1+; Microcytosis Slight
[2017-04-14 06:09] LABS: Atypical Lymphocytes Few; Platelet Estimate Normal; Smudge Cells Few
[2017-04-14 06:16] LABS: Albumin 1.8 G/DL (3.4-5.0); Bilirubin,Total 0.7 MG/DL (0.2-1.0); Calcium 7.3 MG/DL (8.5-10.1); Osmolality,Calculated 295.8 MOS/KG (273-304); Potassium 5.6 MMOL/L (3.5-5.1); Total Protein 5.8 G/DL (6.4-8.3)
[2017-04-14 06:23] LABS: Calcium 7.5 MG/DL (8.5-10.1); Magnesium 4.2 MG/DL (1.8-2.4); Osmolality,Calculated 299.7 MOS/KG (273-304); Potassium 5.5 MMOL/L (3.5-5.1)
--- NOTE | 2017-04-14 08:22 | Oncology Progress Note ---
Oncology Subjective PN Interval history: Mr. Antonio [facility]. This is certainly fine with me. He has been evaluated for possible hypogammaglobulinemia and also for complement deficiency as possible complications that would cause his wound healing to be delayed. Although he has chronic lymphocytic leukemia, it is not advanced. It does not require treatment presently. The results of his serum immunoelectrophoresis have returned. He has a small monoclonal IgA gammopathy but the rest of his immunoglobulins are satisfactory. I do not think this is interfering with wound healing. From my standpoint he can be transferred and after he recovers, we can set up a follow-up visit for me to see him in my office. He does not need my input right now but feel free to consult me when he is moved , if you feel that I can contribute to his care. Thank you. Exam - Constitutional Vitals: Period Temp Pulse Resp BP Sys/Corcoran Pulse Ox Last 24 Hr 97.0 F-98.3 F 60-103 16-22 121-149/56-83 93-100 Results - Labs CBC & BMP: 04/14/17 05:14 04/14/17 05:14 Quality Measures - VTE Contraindication to Pharmacological VTE Prophylaxis: High Risk of Bleeding Specialty Discharge - Follow Up or Referrals Follow up with: Herminio Rowe MD [Physician] - (Melody from Dr. Herminio Lopez office will call the patient with appt)
[2017-04-14] MEDS: oxyCODONE/ACETAMINOPHEN 5-325 MG TABLET PO PRN ×2 (09:50→12:41)
[2017-04-14] MEDS: MULTIVITAMIN (CENTRUM) TABLET PO SCH (09:50)
[2017-04-14] MEDS: predniSONE 20 MG TABLET PO SCH (09:50)
[2017-04-14] MEDS: INSULIN REGULAR 100 UNIT/ML SUBCUT SCH ×3 (09:51→16:32)
[2017-04-14] MEDS: METOPROLOL TARTRATE 50 MG TABLET PO SCH (09:51)
[2017-04-14] MEDS: PANTOPRAZOLE 40 MG VIAL IV SCH (09:52)
[2017-04-14 11:26] VITALS: BP 136/70
--- NOTE | 2017-04-14 11:47 | Discharge Summary ---
Hospital Course - Hospital Course Hospital Course: Mr. Paco Shaw is a 81 year old chronically ill-appearing white male patient who presented to the ED via EMS as a transfer from [facility] for further evaluation of leukocytosis and shortness of breath. The patient's daughter-in- law was present at bedside and provided some of the patient's history. Patient stated that he abruptly became short of breath and began to cough about a week ago. He stated that the cough is productive and it is white. Patient also reported that since the onset of symptoms his condition has progressively declined. He stated that he is weak but denies fever, chills, chest pain, vomiting, or diarrhea. Patient normally ambulates independently but had been requiring assistance. Patient also reported that he was diagnosed in August [address] Murry. Patient stated that he followed up with Dr. Murry last month and that no treatment was specified at that time. When patient presented to [facility] ER for evaluation he was noted to have a BNP of 11,000, and WBC 36,000 with an elevated troponin. He was transferred to our facility and labs were repeated. BNP at our facility was 433 and WBC was 33. Chest x-ray revealed right basilar pneumonia with interval worsening. On examination in the ED, patient was found to have a ulcer on the lateral right ankle as well as edema to bilateral lower extremities. Patient also had rather impressive scrotal edema which he stated has been there for 30 years. He was admitted to the hospitalist service for further care. He was noted to be anemic with H/H of 7.9/24.3, transfused 2 units PRBCs. He was started on Levaquin for pneumonia. Cardiology was consulted due to elevated troponin and paroxysmal SVT. This responded well to the addition of a beta johnathon. He was started on IV lasix for congestive heart failure. He was treated for hyperkalemia. Surgery was consulted for multiple abscess, no surgical intervention performed due to continued hyperkalemia. He did develop necrotic areas, pathology suggestive of pyoderma gangrenosum, started on steroids. Continue wound care. Infectious Disease was also consulted, with recommendations to continue rocephin and levaquin until the end of the week for pneumonia and cellulitis. Nephrology was consulted for worsening renal function. This has remained stable. Oncology followed as well due to his history of CLL. He is now safe for discharge to [facility] for continuation of care, including IV antibiotics and wound care. - Time spent with patient Time with patient DS: Greater than 30 minutes (40) Diagnosis - Discharge Diagnosis (1) Pyoderma gangrenosum Status: Acute (2) CLL (chronic lymphocytic leukemia) Status: Chronic (3) Cellulitis and abscess of left lower extremity Status: Acute (4) Abscess of right external ear Status: Acute (5) Inguinal hernia Status: Chronic (6) Chronic kidney disease, stage III (moderate) Status: Chronic (7) Scrotal ulcer Status: Acute (8) Pneumonia Status: Acute Specialty Discharge - Follow Up or Referrals Follow up with: Herminio Rowe MD [Physician] - (Melody from Dr. Herminio Lopez office will call the patient with appt) Discharge Plan - Discharge Data Disposition: Disch To Home/Self Care Condition at Discharge: Stable Discharge Diet: advance to your usual diet Activity: as per physical therapy Weight Bearing at Discharge: weight bear as tolerated - Discharge Medications New Albuterol/Ipratropium Neb [Duoneb] 3 ml RESP TX RT Q4H Dextrose 50% [D50] 25 gm IV PRN PRN vial PRN Reason: Hypoglycemia with IV access Gentamicin 0.1% Oint [Garamycin 0.1% Oint] 1 applic TOP TID applic Glucagon 1 mg IM PRN PRN vial PRN Reason: Hypoglycemia w/o IV access HYDROmorphone INJ [Dilaudid Inj] 0.5 mg IV Q2H PRN vial PRN Reason: Pain Severe (8-10) Insulin Regular [HumuLIN R] See Protocol SUBCUT ACHS unit Metoprolol Tartrate Tab [Lopressor Tab] 50 mg PO BID tablet Ondansetron Inj [Zofran Inj] 4 mg IV Q4H PRN vial PRN Reason: Nausea/Vomiting metroNIDAZOLE INJ [Flagyl Inj] 500 mg IV Q8H oxyCODONE/ACETAMINOPHEN 5-325 [Percocet 5-325] 1 tablet PO Q6H PRN tablet PRN Reason: Pain Moderate (4-7) predniSONE TAB [PredniSONE] 60 mg PO DAILY tablet Acetaminophen Tab [Tylenol Tab] 650 mg PO Q4H PRN tablet PRN Reason: Fever, Headache, Mild Pain Ergocalciferol [Drisdol] 50,000 unit PO Q7D capsule Levofloxacin Inj [Levaquin Inj] 750 mg IV Q48H cefTAZidime [Fortaz] 1,000 mg IV Q24H vial Continue Multivit-Min36/Iron/Folic Acid [Geritol Complete Tablet] 1 each PO QAM Discontinued Aspirin/Caffeine [Bc Powder Packet] 1 each PO BID - Follow Up or Referral Follow Up: Herminio Rowe MD [Physician] - (Melody from Dr. Herminio Lopez office will call the patient with appt) - Forms/Instructions Exam - Constitutional Vitals: Period Temp Pulse Resp BP Sys/Corcoran Pulse Ox Last 24 Hr 97.0 F-98.3 F 60-103 16-22 121-149/56-83 93-100 General appearance: over weight - Head Head exam: Present: normocephalic, atraumatic - Eye Eye exam: Present: EOMI Pupils: Present: JOSETTE - ENT ENT exam: Present: normal exam - Neck Neck exam: Present: normal inspection - Respiratory Respiratory exam: Present: clear to auscultation bilaterally - Cardiovascular Cardiovascular exam: Present: regular rate and rhythm - GI/Abdominal GI/Abdominal exam: Present: normal bowel sounds, soft. Absent: tenderness, rebound - Extremities Exam Extremities exam: Present: other (right leg wrapped) - Back Exam Back exam: Present: normal inspection - Neurological Exam Neurological exam: Present: alert, oriented X3 - Psychiatric Psychiatric exam: Present: normal affect, normal mood - Skin Skin exam: Present: warm, intact Discharge Results Procedures and tests throughout hospitalization: Pending Orders 04/03/17 18:42 Red Blood Cells Leuko Red Stat Type and Screen Stat 04/06/17 10:15 Occult Blood, Stool Routine 04/15/17 04:00 Comp Blood Count Auto Diff IN AM Comp Blood Count Auto Diff IN AM Comprehensive Metabolic Panel IN AM LDH [Lactate Dehydrogenase] IN AM LDH [Lactate Dehydrogenase] IN AM 04/16/17 04:00 Comp Blood Count Auto Diff IN AM Comp Blood Count Auto Diff IN AM Comprehensive Metabolic Panel IN AM LDH [Lactate Dehydrogenase] IN AM LDH [Lactate Dehydrogenase] IN AM 04/17/17 04:00 Comp Blood Count Auto Diff IN AM Comp Blood Count Auto Diff IN AM Comprehensive Metabolic Panel IN AM LDH [Lactate Dehydrogenase] IN AM 04/18/17 04:00 Comp Blood Count Auto Diff IN AM Comprehensive Metabolic Panel IN AM LDH [Lactate Dehydrogenase] IN AM 04/19/17 04:00 Comp Blood Count Auto Diff IN AM Comprehensive Metabolic Panel IN AM Labs on day of discharge: Labs from last 24 hours 04/14/17 04/14/17 04/14/17 10:25 05:14 05:14 WBC RBC Hgb Hct MCV MCH MCHC RDW Plt Count MPV Neut % (Auto) Lymph % (Auto) [place] % (Auto) Eos % (Auto) Baso % (Auto) Neut # (Auto) Lymph # (Auto) [place] # (Auto) Eos # (Auto) Baso # (Auto) Total Counted Immature Gran % Nucleated RBC % Immature Gran # Segmented Neutrophils Lymphocytes Monocytes Nucleated RBCs # Atypical Lymphocytes Smudge Cells Platelet Estimate Hypochromasia Microcytosis Sodium 131 L 130 L Potassium 5.5 H 5.6 H Chloride 100 99 Carbon Dioxide 24 23 Anion Gap 12.5 13.6 BUN 110 H 103 H Creatinine 3.90 H 3.80 H GFR Calculation 16 17 BUN/Creatinine Ratio 28.00 H 27.00 H Glucose 156 H 162 H POC Glucose 228 H Calculated Osmolality 299.7 295.8 Calcium 7.5 L 7.3 L Magnesium 4.2 H Total Bilirubin 0.70 AST 36 ALT 23 Alkaline Phosphatase 142 H Lactate Dehydrogenase Total Protein 5.8 L Albumin 1.8 L Globulin 4.0 H Albumin/Globulin Ratio 0.4 L Blood Type Antibody Screen Crossmatch 04/14/17 04/14/17 04/13/17 05:14 05:14 20:05 WBC 62.6 H* RBC 3.66 L D Hgb 10.4 L D Hct 32.5 L MCV 88.8 MCH 28 MCHC 32.0 RDW 17.2 Plt Count 270 MPV 9.4 L Neut % (Auto) 12.7 L Lymph % (Auto) 68.6 H [place] % (Auto) 18.4 H Eos % (Auto) 0.0 Baso % (Auto) 0.0 Neut # (Auto) 8.0 H Lymph # (Auto) 42.9 H [place] # (Auto) 11.5 H Eos # (Auto) 0.0 Baso # (Auto) 0.0 Total Counted 100 Immature Gran % 0.3 Nucleated RBC % 0.0 Immature Gran # 0.19 Segmented Neutrophils 22 L Lymphocytes 74 H Monocytes 4 Nucleated RBCs # 0.00 Atypical Lymphocytes Few Smudge Cells Few Platelet Estimate Normal Hypochromasia 1+ Microcytosis Slight Sodium Potassium Chloride Carbon Dioxide Anion Gap BUN Creatinine GFR Calculation BUN/Creatinine Ratio Glucose POC Glucose 211 H Calculated Osmolality Calcium Magnesium Total Bilirubin AST ALT Alkaline Phosphatase Lactate Dehydrogenase 140 Total Protein Albumin Globulin Albumin/Globulin Ratio Blood Type Antibody Screen Crossmatch 04/13/17 04/13/17 04/13/17 16:37 11:41 08:05 WBC RBC Hgb Hct MCV MCH MCHC RDW Plt Count MPV Neut % (Auto) Lymph % (Auto) [place] % (Auto) Eos % (Auto) Baso % (Auto) Neut # (Auto) Lymph # (Auto) [place] # (Auto) Eos # (Auto) Baso # (Auto) Total Counted Immature Gran % Nucleated RBC % Immature Gran # Segmented Neutrophils Lymphocytes Monocytes Nucleated RBCs # Atypical Lymphocytes Smudge Cells Platelet Estimate Hypochromasia Microcytosis Sodium Potassium Chloride Carbon Dioxide Anion Gap BUN Creatinine GFR Calculation BUN/Creatinine Ratio Glucose POC Glucose 230 H 220 H Calculated Osmolality Calcium Magnesium Total Bilirubin AST ALT Alkaline Phosphatase Lactate Dehydrogenase Total Protein Albumin Globulin Albumin/Globulin Ratio Blood Type A POSITIVE Antibody Screen Negative Crossmatch See Detail DS: Provider Date of admission: 04/03/17 16:43 Primary care physician: . No PCP Attending physician on admission: Aureliano Lockwood DO Consults: 04/03/17 18:19 Consult to Physician [CONS] Routine Comment: Consulting Provider: Kvng Murry Person Notified: INOCENTE Date Notified: 04/04/17 Time Notified: 09:40 Consult to Wound Care - [place] [CONS] Routine Reason for Wound Care: Wound Care Management 04/03/17 18:20 Consult to Physical Therapy [CONS] Routine Reason for Physical Therapy: Evaluate and Treat Consult to Physician [CONS] Routine Comment: Consulting Provider: Cristo Aaron Person Notified: Iliana Date Notified: 04/03/17 Time Notified: 18:47 04/03/17 18:37 Consult to Dietitian [CONS] Routine Reason for Dietitian: Other Consult Comment: weight loss 04/04/17 10:04 Consult to Physician [CONS] Routine Comment: Left ankle abscess Consulting Provider: Gregory Toth Consult to Specialist Group: Surgery When should Consulting Provider be notified: [place] Person Notified: Wandy Date Notified: 04/04/17 Time Notified: 11:05 04/05/17 09:45 Consult to Physician [CONS] Routine Comment: Abnormal renal function Consulting Provider: Dong Han Consult to Specialist Group: Nephrology When should Consulting Provider be notified: Now Person Notified: JOHANA Date Notified: 04/05/17 Time Notified: 10:13 Consult Notification Comment: 04/06/17 12:45 Consult to Anesthesiology [CONS] Routine Consulting Provider: Reason for Anesthesiology: Pre-op Clearance Consult Comment: Surgery date should be 04/07/17 04/06/17 14:57 Consult to Case Mgmt/Social Srvs [CONS] Routine Reason for Case Mgmt/Social Srvs: Home Health 04/07/17 17:34 Consult to Physician [CONS] Routine Comment: pt on multiple antibiotics . abcess and pneumonia Consulting Provider: Ashley Kelly Consult to Specialist Group: Infectious Disease When should Consulting Provider be notified: In am Person Notified: [email or web address] Date Notified: 04/08/17 Time Notified: 10:28 Consult Notification Comment: 04/08/17 11:57 Consult to Case Mgmt/Social Srvs [CONS] Routine Reason for Case Mgmt/Social Srvs: Discharge Planning LTAC Discharging clinician: Jarvis Gregory MD
[2017-04-14] MEDS ORDERED: MAGNESIUM CITRATE 300 ML BOTTLE PO ONE (13:35)
[2017-04-14] MEDS: GENTAMICIN 0.1% OINT 15 GM TUBE TOP SCH ×2 (13:38→16:27)
[2017-04-14] MEDS: SKIN HEALING OINT (AQUAPHOR) 50 GM TUBE TOP SCH (13:38)
[2017-04-14] MEDS: BACITRACIN OINT 0.9 GM PACK TOP SCH (13:38)
[2017-04-14] MEDS: SODIUM HYPOCHLORITE 0.25% IRRIG 473 ML BOTTLE TOP SCH (13:38)
--- NOTE | 2017-04-14 13:51 | Nephrology Progress Note ---
Nephrology - PN: Subj Interval history: Mr. Antonio is seen in follow-up of his renal impairment. His creatinine today is 3.9 and his generally risen since he has been in the hospital over the last 10 days or so. His serum albumin is 1.8 he continues to have considerable edema from the waist down including his scrotum. He is in no distress and is able to breathe comfortably. Exam (PN)-Nephrology - Vital Signs Vital signs: Period Temp Pulse Resp BP Sys/Cocroran Pulse Ox Last 24 Hr 97.0 F-98.3 F 60-103 16-22 121-149/56-81 94-100 - Lab 04/14/17 05:14 04/14/17 05:14 Most recent lab results Calcium 7.5 MG/DL (8.5-10.1) L 04/14/17 05:14 Phosphorus 2.5 MG/DL (2.5-4.9) 04/06/17 05:46 Magnesium 4.2 MG/DL (1.8-2.4) H 04/14/17 05:14 Specialty Discharge - Follow Up or Referrals Follow up with: Herminio Rowe MD [Physician] - (Melody from Dr. Herminio Lopez office will call the patient with appt)
--- NOTE | 2017-04-14 16:18 | Infectious Disease Progress ---
Assessment and Plan (1) Abscess of right external ear Status: Acute Assessment and plan: This was debrided and MRSE cultured. There is no surrounding cellulitis. Recommendations: Continue local wound care. Current Visit: Yes (2) Cellulitis and abscess of left lower extremity Status: Acute Assessment and plan: Per photos of the wounds there is no surrounding cellulitis just large wounds with some sloughy tissue treatment. Would not continue antibiotics for this but instead local wound care. Also getting steroids for possible pyoderma gangrenosum. Current Visit: Yes (3) Chronic kidney disease, stage III (moderate) Status: Chronic Current Visit: Yes (4) Inguinal hernia Status: Chronic Current Visit: Yes Qualifiers: Laterality: unspecified laterality Recurrence: non-recurrent (5) Pneumonia Status: Acute Assessment and plan: Community-acquired pneumonia. Infiltrate improved since admission. Recommendations: Discontinue ceftriaxone and levofloxacin after he gets his doses tomorrow I will sign off now. Call again as needed. Current Visit: Yes (6) CLL (chronic lymphocytic leukemia) Status: Chronic Current Visit: Yes Infectious Disease - PN: Subj Interval history: Overall feeling better, awaiting transfer to LTAC today. Has been afebrile. Infectious Disease Exam (PN) - Constitutional Vitals: Temp Pulse Resp BP Pulse Ox 97.3 F L 84 17 136/70 94 L 04/14/17 12:59 04/14/17 15:27 04/14/17 15:27 04/14/17 12:59 04/14/17 15:27 General appearance: over weight Exam: General appearance: Alert and comfortable, overall looks better than when he first came in - Eye Eye exam: Present: EOMI. no icterus Pupils: Present: JOSETTE - ENT ENT exam: Ulcerations noted on hard palate and also about severely carious teeth in the upper gums - Respiratory Respiratory exam: vesicular BS, no crepitations or wheezes - Cardiovascular Cardiovascular exam: regular rate and rhythm, no murmurs - GI/Abdominal GI/Abdominal exam: normal bowel sounds, soft, non-tender, no organomegaly or mass - Extremities Exam Extremities exam: Right leg wound bandaged - Skin Skin exam: Unchanged ulcerations to anterior aspect of right and to right side of nose. Ulceration to left side of scrotum undersurface noted with sloughing away of necrotic tissue. No surrounding erythema or induration. Results - Labs CBC & BMP: 04/14/17 05:14 04/14/17 05:14 Lab Results: I have reviewed the past 24 hour labs Quality Measures - VTE Contraindication to Pharmacological VTE Prophylaxis: High Risk of Bleeding Specialty Discharge - Follow Up or Referrals Follow up with: Herminio Rowe MD [Physician] - (Melody from Dr. Herminio Lopez office will call the patient with appt)
--- NOTE | 2017-04-14 16:34 | Nephrology Progress Note ---
Nephrology - PN: Subj Interval history: This is a late entry note for 04/13/2017 He was awake and alert when seen. He denied shortness of breath. Exam (PN)-Nephrology - Vital Signs Vital signs: Period Temp Pulse Resp BP Sys/Corcoran Pulse Ox Last 24 Hr 97.0 F-98.3 F 62-103 16-22 126-149/58-81 94-100 Exam: ENT: Normal Cardiovascular: Regular rate and rhythm. No murmur rub or gallop Lungs: Clear Extremities: Trace edema - Lab 04/14/17 05:14 04/14/17 05:14 Most recent lab results Calcium 7.5 MG/DL (8.5-10.1) L 04/14/17 05:14 Phosphorus 2.5 MG/DL (2.5-4.9) 04/06/17 05:46 Magnesium 4.2 MG/DL (1.8-2.4) H 04/14/17 05:14 Assessment and Plan (1) Chronic kidney disease, stage III (moderate) Status: Chronic Assessment and plan: 81-year-old man admitted with: * CLL. Followed by Dr. Murry * CRF stage III * ARF. Creatinine is stabilized today. Hopefully it will begin to improve. With family * Pneumonia, right lower lobe. Continue antibiotics * Hyperkalemia. Improved. * Cellulitis, right leg. Status post debridement * Paroxysmal SVT * Anemia. Transfusion today Current Visit: Yes (2) Cellulitis and abscess of left lower extremity Status: Acute Current Visit: Yes (3) Hypokalemia Status: Acute Current Visit: Yes (4) Leukocytosis Status: Acute Current Visit: Yes (5) Paroxysmal SVT (supraventricular tachycardia) Status: Acute Current Visit: Yes (6) Pneumonia Status: Acute Current Visit: Yes (7) CLL (chronic lymphocytic leukemia) Status: Chronic Current Visit: Yes Specialty Discharge - Follow Up or Referrals Follow up with: Herminio Rowe MD [Physician] - (Melody from Dr. Herminio Lopez office will call the patient with appt)
== END 2017-04-14 15:38 | DRG 166 ==
LOC: N.ED 13:45 → N.EDINP 16:43 → SUATTDRO 16:43 → N.EDINP 17:51 → N.5E 18:20
PROVIDERS: ADMIT Internal Medicine; ATTEND Internal Medicine